=== PATIENT | male | born 1980 | race Caucasian/White ===

== ENCOUNTER 2016-11-10 14:01 | Inpatient (IN) | payer OTHER ==
[~2016-11-10] VITALS: Ht 175.3 cm; Wt 103.8 kg
[~2016-11-10 14:01] MED LIST: LIBRIUM25 MG PO; LISINOPRIL10 MG PO; METOPROLOL SUCC50 MG PO
--- NOTE | 2016-11-10 16:06 | ED CLINICAL REPORT ---
Clinical Report - Physicians/Mid Levels [facility] [address], [place] [address] 11/10/2016 14:02 Patient: HENRIK WINSTON Time Seen: 14:05. Arrived- By ambulance. Historian- EMS personnel. Evaluation limited history limited by alcohol intoxication. HISTORY OF PRESENT ILLNESS Chief Complaint: VOMITING BLOOD and DARK/TARRY STOOLS. This started several days ago and has been severe. (Pt and family called 911 because of dark blood emesis and incontinence of black tarry stool). Is still present. It was gradual in onset. The patient has had dark stools, rectal bleeding, nausea, vomiting and diarrhea. He has had abdominal pain but not had hard stools. No constipation. Similar symptoms previously: Several times. REVIEW OF SYSTEMS CAVEAT, MARKED INTOXICATON PRECLUDES ACCURATE ROS. PAST HISTORY PCP: Eyad MANCINI PAST HISTORY Alcoholism with prior withdrawal and alcohol withdrawal seizures. Alcoholic gastritis. Bilateral femoral head necrosis Prior right ankle injury / fracture. Hypertension. Borderline diabetes Hyperlipidemia. Hypomagnesemia. Gout. Surgeries: Right knee surgery. Endoscopy. ADDITIONAL NOTES The nursing notes have been reviewed. PHYSICAL EXAM Vital Signs: 11/10/2016 14:27 BP: 80/44. HR: 123. RR: 20. O2 saturation: 98%. 11/10/2016 14:07 BP: 70/53. HR: 114. RR: 22. O2 saturation: 100%. Temp: 95.7 F. Appearance: Alert. (Vomiting dark red material and incontinent of black tarry stool). Eyes: No scleral icterus. ENT: Dry mucous membranes present. Neck: (difficult to visualize neck veins due to habitus and weber.). CVS: Tachycardia. Heart sounds normal. Respiratory: No respiratory distress. Abdomen: Mild tenderness diffusely. Bowel sounds normal. Rectal: (black tarry strongly heme positive stools.). Extremities: Extremities exhibit normal ROM. No lower extremity edema. Neuro: Altered mental status. (slurred speach.). LABS, X-RAYS, AND EKG Laboratory Tests: UA-Culture if indicated: (JASS: 11/10/2016 14:42) ( MsgRcvd 11/10/2016 15:08) Final results Test Result Flag Units (Reference) URINE COLOR ORQUIDEA URINE APPEARANCE CLEAR URINE GLUCOSE NEGATIVE (NEGATIVE) URINE BILIRUBIN ICTOTEST POSITIVE (NEGATIVE) URINE KETONE TRACE (NEGATIVE) URINE SPECIFIC GRAVITY >= 1.030 (1.010-1.030) URINE PH 5.0 (5.0-8.0) URINE PROTEIN TRACE (NEGATIVE) URINE UROBILINOGEN 1.0 EU/dL (0.2-1.0) URINE NITRITE NEGATIVE (NEGATIVE) URINE BLOOD NEGATIVE (NEGATIVE) URINE LEUK ESTERASE NEGATIVE (NEGATIVE) URINE RBC NONE SEEN rbc/hpf (0-1) URINE WBC 1-3 wbc/hpf (0-1) URINE EPITHELIAL CELLS NONE SEEN EPI/hpf (0-5) URINE BACTERIA FEW (1+) (NONE SEEN) URINE COMMENT CULT NOT INDICATED 25-50 HYALINE CAST PER LOW POWER FIELD. 1+ AMORPHOUS URATES.FEW TRANSITIONAL EPITHELIAL CELLS.URINE CULTURES ARE SET-UP BASED ON THE FOLLOWING CRITERIA:POSITIVE NITRITEPOSITIVE LEUKOCYTE ESTERASEGREATER THAN 10 WHITE BLOOD CELLSMODERATE (2+) OR GREATER BACTERIA CBC w Diff: (JASS: 11/10/2016 14:20) ( MsgRcvd 11/10/2016 14:26) Final results Test Result Flag Units (Reference) WHITE BLOOD COUNT 22.6 H K/uL (4.5-11.5) RED BLOOD COUNT 2.17 L M/uL (4.50-5.90) HEMOGLOBIN 7.5 L gm/dL (13.5-17.5) HH CALLED TO DR. MCKENNA HEMATOCRIT 22.7 L % (41.0-53.0) MEAN CELL VOLUME 104 H fL (80-100) MEAN CORPUSCULAR HGB 35 H pg (26-34) MEAN CORPUSCULAR HGB CONC 33 g/dL (31-37) RED CELL DISTRIBUTION WIDTH 17.7 H % (11.6-14.8) PLATELET COUNT 224 K/uL (150-400) NEUTROPHIL % 80.1 H % (50-75) LYMPH % 9.3 L % (25-40) MONO % 10.6 % (3-14) EOSINOPHIL % 0 % (0-4) BASOPHIL % 0 % (0-2) PT with INR: (JASS: 11/10/2016 14:35) ( MsgRcvd 11/10/2016 14:43) Final results Test Result Flag Units (Reference) INR 1.3 H (0.8-1.2) Low Intensity Therapy: INR 1.5-2.0 PT range 18.5-23.1Mod.Intensity Therapy: INR 2.0-3.0 PT range 23.1-31.5High Intensity Therapy: INR 2.5-3.5 PT range 27.4-35.5High Intensity Therapy 2: INR 3.0-4.0 PT range 31.5-39.3 CMP: (JASS: 11/10/2016 14:20) ( MsgRcvd 11/10/2016 14:42) Final results Test Result Flag Units (Reference) GLUCOSE 116 H mg/dL (70-110) BUN 42 H mg/dL (7-18) CREATININE 1.7 H mg/dL (0.6-1.3) Estimated GFR 48.44 mL/min Estimated GFR- 58.71 mL/min Note: Persistent reduction over 3 months in eGFR<60 mL/min/1.73 m2 defines CKD. Patients with eGFR values>=60 mL/min/1.73 m2 may also have CKD if evidence ofpersistent proteinuria. Additional information may be foundat www.kidney.org. SODIUM 127 L mmol/L (136-145) POTASSIUM 4.1 mmol/L (3.5-5.1) CHLORIDE 83 L mmol/L (98-107) CARBON DIOXIDE 12 *L mmol/L (21-32) CRITICAL RESULTS CALLEDCalled to RODOLFO CHILEL RN 11/10/16 [id number] 2 patient identifiers used? YWas the result read back? Y CALCIUM 7.3 L mg/dL (8.5-10.1) TOTAL PROTEIN 5.6 L g/dL (6.4-8.2) ALBUMIN 2.1 L g/dL (3.3-5.0) BILIRUBIN, TOTAL 1.4 H mg/dL (0.0-1.0) ALKALINE PHOSPHATASE 96 U/L (46-116) AST (SGOT) 199 H U/L (15-37) ALT (SGPT) 80 H U/L (12-78) LIPASE 198 U/L (73-393) AMYLASE 39 U/L (25-115) ETHYL ALCOHOL 380 H mg/dL (3-10) Type & Cross: (JASS: 11/10/2016 14:20) ( MsgRcvd 11/10/2016 15:01) IP Test Result Flag Units (Reference) PATIENT BLOOD TYPE O Positive Above is a corrected result. Previously reported on ( MsgRcvd 11/10/2016 14:55) as: PATIENT BLOOD TYPE O Positive ANTIBODY SCREEN NEGATIVE Above is a corrected result. Previously reported on ( MsgRcvd 11/10/2016 14:55) as: ANTIBODY SCREEN NEGATIVE LEUKOREDUCED PACKED CELLS [id number] OP PC XM COMPATIBLE [id number] OP PC XM COMPATIBLE [id number] OP PC XM COMPATIBLE [id number] OP PC XM COMPATIBLE . PROGRESS AND PROCEDURES Course of Care: Hypotension Melena, dark vomiting HCT 22 Hb 7.2 with evidence of recent possibly ongoing bleeding. T&C for 4 units of blood with 2 typed but not cross matched given. Informed Dr Wolf and Kaden 15:27 11/10/16. Dr Alfonso has seen the patient. Mr Montenegro has 3 lines. 3 units of NS have been infused. 2 units of PRBC are hanging. a 4th unit of NS is hanging. 150 ml of urine out in the last hour. MAP 62, 90/50. 15:10 11/10/16. Dr Alfonso is here. ICU bed is available 15:42 11/10/16. Map 85 120/ Stable enough for ICU. 11/10/2016 17:24 BP: 104/68. HR: 130. RR: 26. O2 saturation: 100%. Temp: 98.7 F. End tidal CO2: 19 mmHg. Pain level now: 04/08. 11/10/2016 16:54 BP: 136/87. HR: 105. RR: 26. O2 saturation: 99%. 11/10/2016 16:05 BP: 124/73. HR: 120. RR: 26. O2 saturation: 98%. End tidal CO2: 15 mmHg. 11/10/2016 15:38 Temp: 97.4 F. 11/10/2016 15:32 BP: 124/73. HR: 115. RR: 37. O2 saturation: 100%. 11/10/2016 15:28 BP: 116/69. HR: 115. RR: 31. O2 saturation: 100%. 11/10/2016 15:14 BP: 90/55. HR: 120. RR: 16. O2 saturation: 99%. End tidal CO2: 16 mmHg. 11/10/2016 15:05 BP: 97/45. HR: 118. RR: 36. O2 saturation: 99%. Temp: 96.7 F. 11/10/2016 15:05 BP: 97/45. HR: 118. RR: 36. O2 saturation: 99%. Temp: 96.7 F. 11/10/2016 14:59 BP: 104/57. HR: 119. RR: 29. O2 saturation: 99%. 11/10/2016 14:58 BP: 104/57. HR: 122. RR: 28. O2 saturation: 100%. Temp: 95.9 F. End tidal CO2: 18 mmHg. 11/10/2016 14:56 Temp: 95.9 F. 11/10/2016 14:50 BP: 108/64. HR: 122. RR: 30. O2 saturation: 82%. 11/10/2016 14:27 BP: 80/44. HR: 123. RR: 20. O2 saturation: 98%. 11/10/2016 14:07 BP: 70/53. HR: 114. RR: 22. O2 saturation: 100%. Temp: 95.7 F. Critical care performed (60 minutes). Time is exclusive of separately billable procedures. Time includes: direct patient care, patient reassessment, coordination of patient care, interpretation of data (laboratory data and pulse oximetry), review of patient's medical records and documentation of patient care- see progress notes. CLINICAL IMPRESSION ACUTE UPPER GI BLEED ACUTE BLOOD LOSS ANEMIA HYPOTENSION. (Electronically signed by Chano Mckenna MD 11/10/2016 23:05)
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
--- NOTE | 2016-11-10 16:07 | ED ORDER SUMMARY ---
..... Patient: HENRIK WINSTON OrderSheet [facility] VisitID: [id number] [address] [place] [address] 36y, M Registration Date/Time: 11/10/2016 ORDER SHEET Weight: 111.1 kg (stated) Allergies: None GENERAL ORDERS: Type & Cross (upper gi pleed) (hypotension 76/ ) Urgent (14:06 11/10/2016 Edward SMITH) (Ack 14:15 Sebas) (14:23 SReitz R.N.) CBC w Diff Urgent (14:11/10/2016 Edward SMITH) (Ack 14:15 Sebas) (14:23 SReitz R.N.) CMP Urgent (14:11/10/2016 Edward SMITH) (Ack 14:15 Sebas) (14:23 SReitz R.N.) UA-Culture if indicated Urgent (14:11/10/2016 Edward SMITH) (Ack 14:15 Sebas) (16:08 SReitz R.N.) PT with INR Urgent (14:07 11/10/2016 Edward SMITH) (Ack 14:15 Sebas) (14:23 SReitz R.N.) Lipase Urgent (14:11/10/2016 Edward SMITH) (Ack 14:15 Sebas) (14:23 SReitz R.N.) Amylase Urgent (14:11/10/2016 Edward SMITH) (Ack 14:15 Sebas) (14:23 SReitz R.N.) Ethyl Alcohol Urgent (14:11/10/2016 Edward SMITH) (Ack 14:15 Sebas) (14:23 SReitz R.N.) Arias Catheter (14:17 11/10/2016 Edward SMITH) (14:23 SReitz R.N.) Arias Catheter (14:18 11/10/2016 Edward SMITH) (14:18 Edward SMITH) (Cancelled: Duplicate Order14:18 Edward SMITH) NG Tube (14:18 11/10/2016 Edward SMITH) (14:23 SReitz R.N.) - (TRANSFUSE 2 UNITS OF TYPE SPECIFIC PRBC) (14:27 11/10/2016 Edward SMITH) (14:40 Warren R.N.) Chest 1V Urgent (15:01 11/10/2016 Edward SMITH) (Ack 15:15 Sebas) (16:24 SReitz R.N.) MEDICATION ORDERS: - (Octreotide 50 mcg iv) (16:26 11/10/2016 Edward SMITH) (Ack 16:29 SReitz R.N.) (16:51 SReitz R.N.) IV FLUIDS: IV NS : initial bolus none -, then 1000 mL/hr for X1 (NOW) (1 #1) (14:07 11/10/2016 Edward SMITH) (14:24 SReisabella R.N.) IV NS : initial bolus none -, then 1000 mL/hr for X1 (NOW) (IV #2) (14:08 11/10/2016 Edward SMITH) (14:25 Warren R.N.) Vit K IV 5 mg (IV doses should be given diluted) (14:16 11/10/2016 Edward SMITH) (Ack 14:28 Warren R.N.) (15:30 Warren R.N.) Thiamine IV 100 mg (100 mg Add to IV solution) (14:16 11/10/2016 Edward SMITH) (Ack 14:28 Warren R.N.) (14:40 Warren R.N.) ORDER SHEET NOTES: [Electronically signed by Sil Sr R.N. (17:57 11/10/2016)] [Electronically signed by Chano Swann MD (23:05 11/10/2016)] [Electronically locked/signed by Sil Sr R.N. (17:57 11/10/2016)]
--- NOTE | 2016-11-10 16:07 | ED ORDER SUMMARY ---
..... Patient: HENRIK WINSTON OrderSheet [facility] VisitID: [id number] [address] [place] [address] 36y, M Registration Date/Time: 11/10/2016 ORDER SHEET Weight: 111.1 kg (stated) Allergies: None GENERAL ORDERS: Type & Cross (upper gi pleed) (hypotension 76/ ) Urgent (14:06 11/10/2016 Edward SMITH) (Ack 14:15 Sebas) (14:23 SReitz R.N.) CBC w Diff Urgent (14:11/10/2016 Edward SMITH) (Ack 14:15 Sebas) (14:23 SReitz R.N.) CMP Urgent (14:11/10/2016 Edward SMITH) (Ack 14:15 Sebas) (14:23 SReitz R.N.) UA-Culture if indicated Urgent (14:11/10/2016 Edward SMITH) (Ack 14:15 Sebas) (16:08 SReitz R.N.) PT with INR Urgent (14:07 11/10/2016 Edward SMITH) (Ack 14:15 Sebas) (14:23 SReitz R.N.) Lipase Urgent (14:11/10/2016 Edward SMITH) (Ack 14:15 Sebas) (14:23 SReitz R.N.) Amylase Urgent (14:11/10/2016 Edward SMITH) (Ack 14:15 Sebas) (14:23 SReitz R.N.) Ethyl Alcohol Urgent (14:11/10/2016 Edward SMITH) (Ack 14:15 Sebas) (14:23 SReitz R.N.) Arias Catheter (14:17 11/10/2016 Edward SMITH) (14:23 SReitz R.N.) Arias Catheter (14:18 11/10/2016 Edward SMITH) (14:18 Edward SMITH) (Cancelled: Duplicate Order14:18 Edward SMITH) NG Tube (14:18 11/10/2016 Edward SMITH) (14:23 SReitz R.N.) - (TRANSFUSE 2 UNITS OF TYPE SPECIFIC PRBC) (14:27 11/10/2016 Edward SMITH) (14:40 Warren R.N.) Chest 1V Urgent (15:01 11/10/2016 Edward SMITH) (Ack 15:15 Sebas) (16:24 SReitz R.N.) MEDICATION ORDERS: - (Octreotide 50 mcg iv) (16:26 11/10/2016 Edward SMITH) (Ack 16:29 SReitz R.N.) (16:51 SReitz R.N.) IV FLUIDS: IV NS : initial bolus none -, then 1000 mL/hr for X1 (NOW) (1 #1) (14:07 11/10/2016 Edward SMITH) (14:24 SReisabella R.N.) IV NS : initial bolus none -, then 1000 mL/hr for X1 (NOW) (IV #2) (14:08 11/10/2016 Edward SMITH) (14:25 Warren R.N.) Vit K IV 5 mg (IV doses should be given diluted) (14:16 11/10/2016 Edward SMITH) (Ack 14:28 Warren R.N.) (15:30 Warren R.N.) Thiamine IV 100 mg (100 mg Add to IV solution) (14:16 11/10/2016 Edward SMITH) (Ack 14:28 Warren R.N.) (14:40 Warren R.N.) ORDER SHEET NOTES: [Electronically signed by Sil Sr R.N. (17:57 11/10/2016)] [Electronically signed by Chano Swann MD (23:05 11/10/2016)] [Electronically locked/signed by Sil Sr R.N. (17:57 11/10/2016)]
--- NOTE | 2016-11-10 16:31 | DIAGNOSTIC IMAGING REPORT ---
PROCEDURE: XR CHEST 1 VIEW INDICATION: UGI BLEED TECHNIQUE: Portable AP view (). COMPARISON: None. FINDINGS: Interval placement of an NG tube with the tip in the stomach. Lungs are clear. Heart and mediastinum are normal. Thorax is normal. IMPRESSION: 1. NG tube in place 2. No acute changes
[2016-11-10 17:45] VITALS: BP 92/49
--- NOTE | 2016-11-10 18:12 | History & Physical Report ---
Information Source Information Source: Self Reliability: Fair History Chief Complaint dark vomitus and dark stools History of Present Illness Patient is a 36 year old male with a history of gout, hypertension, femoral head necrosis and alcoholism that is presenting with a two day history of dark vomitus and dark stools. Patient at the time of interview was intoxicated therefore a lot of the history obtained is suboptimal. Patient apparently has been drinking continuously for the last 2-4 days. Patient has been consuming close to a liter of liquor a day after losing his job. Patient yesterday began to notice that he was having very dark stools, this was shortly followed by forceful vomiting. Patient continued to drink despite having multiple episodes of dark vomiting. Patient woke up the next day with a puddle of dark vomitus near his head, and continued to drink. Patient again began to have foreful vomiting and dark stools. Patient became worried that this was somehting more significant and called his father to call ems. Patient History 1. Upper GI bleeding 2. Alcoholic gastritis 3. Anemia 4. Acute blood loss anemia 5. Alcohol intoxication Social History Pt lives by himself, he does not smoke or use illicit substances. Patient does drink significantly and had to be admitted to detox twice. Patient consumes anywhere from a pint to a liter of liquor a day. Patient does stop every so often but drinks to combat withdrawal symptoms. 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 Advance Directive None Medications and Allergies Medications Home Meds Lisinopril 20 mg daily Metoprolol 25 mg daily Current Medications Sig/Jamarcus Start time Last Medication Dose Route Stop Time Status Admin Pantoprazole Sodium 40 MG BID 11/10 2100 UNV IV Octreotide Acetate 300 MCG Q12H 11/10 181 UNV Dextrose/Water 250 ML IV Acetaminophen 650 MG Q4H PRN 11/10 1800 UNV PO Lorazepam 2 MG Q2H PRN 11/10 1800 UNV IV Morphine Sulfate 1 MG Q4H PRN 11/10 1800 UNV IV Ondansetron HCl 4 MG Q6H PRN 11/10 1800 UNV IV Sodium Chloride 1,000 ML ASDIRECTED 11/10 1800 UNV IV Allergies Coded Allergies: NKA (05/19/16) Review of Systems Constitutional Denies: Fever, Chills, Sweats, Weakness, Malaise, Other. Eyes Denies: Pain, Vision Change, Conjunctival Inflammation, Eyelid Inflammation, Redness, Other. ENT Denies: Ear Pain, Ear Discharge, Nose Pain, Nasal Discharge, Nasal Congestion, Mouth Pain, Mouth Swelling, Throat Pain, Throat Swelling, Other. Respiratory Denies: Cough, Dry, SOB w/exertion, Wheezing, Hemoptysis, Pleuritic Pain, Sputum , Other. Cardiovascular Denies: Chest Pain, Palpitations, Orthopnea, PND, Edema, Light-headedness, Other. Gastrointestinal Nausea, Vomiting, Abdominal Pain, Diarrhea, Other (- dark vomitus and stools ). Genitourinary Denies: Dysuria, Frequency, Incontinence, Hematuria, Retention, Other. Musculoskeletal Other (bilateral hip pain ). Skin Denies: Rash, Lesions, Jaundice, Bruising, Other. Physical Exam Vital Signs / I&Os Vital Signs Date Time Temp Pulse Resp B/P Pulse O2 O2 Flow FiO2 Ox Delivery Rate 11/10 1745 98.4 131 30 92/49 100 Room Air General Appearance Alert, Cooperative, Moderate distress HEENT Atraumatic, - dark vomitus remanants seen in nostrils and teeth Lungs - clear to auscultation Cardiovascular Normal S1 and S2, No murmurs, gallops, rubs, tachycardic Abdomen Soft, No masses, - generalized tenderness Extremities No cyanosis, Normal pulses, No tenderness, Strength = upper ext's, Strength = lower ext's Skin No Rashes Psych/Mental Status Confused LAB Results Laboratory Tests 11/10 11/10 11/10 1420 1435 1442 Chemistry Plasma Sodium (136 - 145 mmol/L) 127 Plasma Potassium (3.5 - 5.1 mmol/L) 4.1 Plasma Chloride (98 - 107 mmol/L) 83 CO2 (Enzymatic) (21 - 32 mmol/L) 12 BUN (7 - 18 mg/dL) 42 Creatinine (0.6 - 1.3 mg/dL) 1.7 Est GFR ( Amer) (mL/min) 58.71 Est GFR (Non-Af Amer) (mL/min) 48.44 Glucose (70 - 110 mg/dL) 116 Plasma Calcium (8.5 - 10.1 mg/dL) 7.3 Total Bilirubin (0.0 - 1.0 mg/dL) 1.4 AST (15 - 37 U/L) 199 ALT (12 - 78 U/L) 80 Alkaline Phosphatase (46 - 116 U/L) 96 Total Protein (6.4 - 8.2 g/dL) 5.6 Albumin (3.3 - 5.0 g/dL) 2.1 Amylase (25 - 115 U/L) 39 Lipase (73 - 393 U/L) 198 Coagulation INR (0.8 - 1.2) 1.3 Hematology WBC (4.5 - 11.5 K/uL) 22.6 RBC (4.50 - 5.90 M/uL) 2.17 Hgb (13.5 - 17.5 gm/dL) 7.5 Hct (41.0 - 53.0 %) 22.7 MCV (80 - 100 fL) 104 MCH (26 - 34 pg) 35 RDW (11.6 - 14.8 %) 17.7 Neut % (Auto) (50 - 75 %) 80.1 Lymph % (Auto) (25 - 40 %) 9.3 Preble % (Auto) (3 - 14 %) 10.6 Eos % (Auto) (0 - 4 %) 0 Baso % (Auto) (0 - 2 %) 0 Plt Count, EDTA (150 - 400 K/uL) 224 PUBS MCHC (31 - 37 g/dL) 33 Toxicology Plasma/Serum Ethyl Alc (3 - 10 mg/dL) 380 Urines Urine Color ORQUIDEA Urine Appearance CLEAR Urine pH (5.0 - 8.0) 5.0 Ur Specific Ewing (1.010 - 1.030) >= 1.030 Urine Protein (NEGATIVE) TRACE Urine Ketones (NEGATIVE) TRACE Urine Blood (NEGATIVE) NEGATIVE Urine Nitrite (NEGATIVE) NEGATIVE Ur Bilirubin Confirm (NEGATIVE) POSITIVE Urine Urobilinogen (0.2 - 1.0 EU/dL) 1.0 Ur Leukocyte Esterase (NEGATIVE) NEGATIVE Urine RBC (0 - 1 rbc/hpf) NONE SEEN Urine WBC (0 - 1 wbc/hpf) 1-3 Ur Epithelial Cells (0 - 5 EPI/hpf) NONE SEEN Urine Bacteria (NONE SEEN) FEW (1+) Urine Glucose (NEGATIVE) NEGATIVE Urine Comment CULT NOT INDICATED Assessment and Plan Problem List 1. Upper GI bleeding Plan - Pt has been having upper gastrointestinal bleeding secondary to most likely alcoholic gastritis - Pt has had over 1.5 liters of dark vomitus pulled from his stomach when ng tube was placed - Will begin ppis and octreotide - will type and cross and transfuse 2 units of prbcs - intermitent ng tube suction - will contact gen surg for possible upper endoscopy 2. Acute blood loss anemia Plan - will transfuse 2 units urgently - will monitor cbc q8 hours until bleeding has stopped - will have fluids running at 200 ccs/hr - 2 units are on hold in the blood bank 3. Hypotension Plan - pt has been hypotensive most likely secondary to acute blood loss - after 3 liters of fluid and 2 units of PRBCs pts blood pressure has improved immensely - will continuoulsy monitor bp - will hold bp meds for the time being 4. Alcohol intoxication Plan - pt presented with acute alcohol intoxication - will order replacement therapy with thiamine, folate and iv fluid 5. Alcohol withdrawal syndrome Status Acute Onset Date Unknown Plan - pt is at high risk for alcohol withdrawal - will add ativan 2 mg prn - will increase dose as necessary - seizure precautions
[2016-11-10 19:15] VITALS: BP 104/45
[2016-11-10 20:14] VITALS: BP 96/39
[2016-11-10 21:30] VITALS: BP 91/51
[2016-11-10 22:00] VITALS: BP 108/60
--- NOTE | 2016-11-10 23:06 | ED MED RECONCILIATION SUMMARY ---
Patient: HENRIK WINSTON Medication Reconciliation Report [facility] VisitID: [id number] [address] [place] [address] 36y, M Registration Date/Time: 11/10/2016 Weight: 111.1 kg Height/Length: 66 in. BMI: 39.6 ALLERGIES: None The patient's Home Medications are listed below: THE FOLLOWING MEDICATIONS NEED TO BE RECONCILED: Lisinopril Oral 20 mg, daily Metoprolol Tartrate Oral 25 mg, daily Percocet Oral PredniSONE Oral The source(s) of the original Home Medication information: Not obtained. The following Medications were given to the patient in the Emergency Department: IV NS IV Fluids bolus 0, then 1000 mL/hr, administered: 11/10/2016 2:05:00 PM IV NS IV Fluids bolus 0, then 1000 mL/hr, administered: 11/10/2016 2:05:00 PM IV NS IV Fluids bolus 0, then 1000 mL/hr, administered: 11/10/2016 2:38:00 PM Thiamine [IVP] IVP 100 mg, administered: 11/10/2016 2:40:00 PM Vit K [IVPB] IVPB bolus 0, then 5 mg 100 mL/hr, administered: 11/10/2016 3:28:00 PM IV NS IV Fluids bolus 0, then 1000 mL/hr, administered: 11/10/2016 3:31:00 PM Octreotide [IVP] IVP 50 mcg, administered: 11/10/2016 4:51:00 PM The following Medications were prescribed to the patient: None.
--- NOTE | 2016-11-10 23:06 | ED MAR SUMMARY ---
..... Medication Administration Record [facility] [address] [place] [address] Patient: HENRIK WINSTON Visit ID: [id number] 36y, M Weight: 111.1 kg Height/Length: 66 in BMI: 39.6 ALLERGIES: None Start 14:05 11/10/2016 Sil Sr R.N., Stop 14:37 11/10/2016 Sil Sr R.N. Medication Administered: IV NS (SALINE), Dose: IV Fluids over 1 hour(s), Rate: 1000 mL/hr, Dispensed: 1000 mL bag, Site: #1. Medication Ordered: IV NS : initial bolus none -, then 1000 mL/hr for X1 (NOW) (IV #2). Start 14:05 11/10/2016 Sil Sr R.N., Stop 14:33 11/10/2016 Sil Sr R.N. Medication Administered: IV NS (SALINE), Dose: IV Fluids over 1 hour(s), Rate: 1000 mL/hr, Dispensed: 1000 mL bag, Site: #1. Medication Ordered: IV NS : initial bolus none -, then 1000 mL/hr for X1 (NOW) (1 #1). Start 14:38 11/10/2016 Sil Sr R.N., Stop 14:57 11/10/2016 Sil Sr R.N. Medication Administered: IV NS (SALINE), Dose: IV Fluids over 1 hour(s), Rate: 1000 mL/hr, Dispensed: 1000 mL bag, Site: #2 right wrist. Medication Ordered: IV NS : initial bolus none -, then 1000 mL/hr for X1 (NOW) (1 #1). Given 14:40 11/10/2016 Sil Sr R.N. Medication Administered: THIAMINE [IVP] (VITAMIN B-1), Dose: 100 mg IVP over 1 hour(s), Site: #2 right wrist. Medication Ordered: Thiamine IV 100 mg (100 mg Add to IV solution). Start 15:28 11/10/2016 Sil Sr R.N., Stop 16:00 11/10/2016 Remberto, Sil, R.N. Medication Administered: VIT K [IVPB] (VITAMIN K1), Dose: 5 mg IVPB over 30 minute(s), Rate: 100 mL/hr, Dispensed: 50 mL bag, Site: #3 right AC. Medication Ordered: Vit K IV 5 mg (IV doses should be given diluted). Start 15:31 11/10/2016 Sil Sr RKristieNKristie, Stop 17:00 11/10/2016 Sil Sr R.N. Medication Administered: IV NS (SALINE), Dose: IV Fluids over 1 hour(s), Rate: 1000 mL/hr, Dispensed: 1000 mL bag, Site: #3 right AC. Medication Ordered: IV NS : initial bolus none -, then 1000 mL/hr for X1 (NOW) (1 #1). Given 16:51 11/10/2016 Sil Sr, RKristieN. Medication Administered: OCTREOTIDE [IVP] (OCTREOTIDE ACETATE), Dose: 50 mcg IVP over 2 minute(s), Site: #3 right AC. Medication Ordered: - (Octreotide 50 mcg iv).
--- NOTE | 2016-11-10 23:06 | ED DISCHARGE INSTRUCTIONS ---
Patient: HENRIK WINSTON General Instructions [facility] VisitID: [id number] [address] [place] [address] 36y, M Registration Date/Time: 11/10/2016 ACUTE UPPER GI BLEED ACUTE BLOOD LOSS ANEMIA HYPOTENSION. (Electronically signed by Chano Swann MD 11/10/2016 23:05)
--- NOTE | 2016-11-10 23:06 | ED MAR SUMMARY ---
..... Medication Administration Record [facility] [address] [place] [address] Patient: HENRIK WINSTON Visit ID: [id number] 36y, M Weight: 111.1 kg Height/Length: 66 in BMI: 39.6 ALLERGIES: None Start 14:05 11/10/2016 Sil Sr R.N., Stop 14:37 11/10/2016 Sil Sr R.N. Medication Administered: IV NS (SALINE), Dose: IV Fluids over 1 hour(s), Rate: 1000 mL/hr, Dispensed: 1000 mL bag, Site: #1. Medication Ordered: IV NS : initial bolus none -, then 1000 mL/hr for X1 (NOW) (IV #2). Start 14:05 11/10/2016 Sil Sr R.N., Stop 14:33 11/10/2016 Sil Sr R.N. Medication Administered: IV NS (SALINE), Dose: IV Fluids over 1 hour(s), Rate: 1000 mL/hr, Dispensed: 1000 mL bag, Site: #1. Medication Ordered: IV NS : initial bolus none -, then 1000 mL/hr for X1 (NOW) (1 #1). Start 14:38 11/10/2016 Sil Sr R.N., Stop 14:57 11/10/2016 Sil Sr R.N. Medication Administered: IV NS (SALINE), Dose: IV Fluids over 1 hour(s), Rate: 1000 mL/hr, Dispensed: 1000 mL bag, Site: #2 right wrist. Medication Ordered: IV NS : initial bolus none -, then 1000 mL/hr for X1 (NOW) (1 #1). Given 14:40 11/10/2016 Sil Sr R.N. Medication Administered: THIAMINE [IVP] (VITAMIN B-1), Dose: 100 mg IVP over 1 hour(s), Site: #2 right wrist. Medication Ordered: Thiamine IV 100 mg (100 mg Add to IV solution). Start 15:28 11/10/2016 Sil Sr R.N., Stop 16:00 11/10/2016 Remberto, Sil, R.N. Medication Administered: VIT K [IVPB] (VITAMIN K1), Dose: 5 mg IVPB over 30 minute(s), Rate: 100 mL/hr, Dispensed: 50 mL bag, Site: #3 right AC. Medication Ordered: Vit K IV 5 mg (IV doses should be given diluted). Start 15:31 11/10/2016 Sil Sr RKristieNKristie, Stop 17:00 11/10/2016 Sil Sr R.N. Medication Administered: IV NS (SALINE), Dose: IV Fluids over 1 hour(s), Rate: 1000 mL/hr, Dispensed: 1000 mL bag, Site: #3 right AC. Medication Ordered: IV NS : initial bolus none -, then 1000 mL/hr for X1 (NOW) (1 #1). Given 16:51 11/10/2016 Sil Sr, RKristieN. Medication Administered: OCTREOTIDE [IVP] (OCTREOTIDE ACETATE), Dose: 50 mcg IVP over 2 minute(s), Site: #3 right AC. Medication Ordered: - (Octreotide 50 mcg iv).
--- NOTE | 2016-11-10 23:06 | ED MED RECONCILIATION SUMMARY ---
Patient: HENRIK WINSTON Medication Reconciliation Report [facility] VisitID: [id number] [address] [place] [address] 36y, M Registration Date/Time: 11/10/2016 Weight: 111.1 kg Height/Length: 66 in. BMI: 39.6 ALLERGIES: None The patient's Home Medications are listed below: THE FOLLOWING MEDICATIONS NEED TO BE RECONCILED: Lisinopril Oral 20 mg, daily Metoprolol Tartrate Oral 25 mg, daily Percocet Oral PredniSONE Oral The source(s) of the original Home Medication information: Not obtained. The following Medications were given to the patient in the Emergency Department: IV NS IV Fluids bolus 0, then 1000 mL/hr, administered: 11/10/2016 2:05:00 PM IV NS IV Fluids bolus 0, then 1000 mL/hr, administered: 11/10/2016 2:05:00 PM IV NS IV Fluids bolus 0, then 1000 mL/hr, administered: 11/10/2016 2:38:00 PM Thiamine [IVP] IVP 100 mg, administered: 11/10/2016 2:40:00 PM Vit K [IVPB] IVPB bolus 0, then 5 mg 100 mL/hr, administered: 11/10/2016 3:28:00 PM IV NS IV Fluids bolus 0, then 1000 mL/hr, administered: 11/10/2016 3:31:00 PM Octreotide [IVP] IVP 50 mcg, administered: 11/10/2016 4:51:00 PM The following Medications were prescribed to the patient: None.
--- NOTE | 2016-11-10 23:06 | ED DISCHARGE INSTRUCTIONS ---
Patient: HENRIK WINSTON General Instructions [facility] VisitID: [id number] [address] [place] [address] 36y, M Registration Date/Time: 11/10/2016 ACUTE UPPER GI BLEED ACUTE BLOOD LOSS ANEMIA HYPOTENSION. (Electronically signed by Chano Swann MD 11/10/2016 23:05)
[2016-11-10 23:14] VITALS: BP 120/59
[2016-11-11] VITALS (31 sets, daily range): BP systolic 99–134; BP diastolic 7–93
--- NOTE | 2016-11-11 13:57 | OPERATIVE REPORT ---
DATE OF SURGERY: 11/11/2016 SURGEON: Lucinda Wolf III, MD [facility] HELPER: None. PREOPERATIVE DIAGNOSIS: 1. Upper gastrointestinal bleed POSTOPERATIVE DIAGNOSIS: 1. Suspected esophagitis PROCEDURE PERFORMED: 1. Upper gastrointestinal endoscopy with gastric mucosal biopsies ANESTHESIA: General endotracheal. INDICATIONS: The patient is a 36-year-old male admitted to [facility] with suspected upper GI bleed, received 4 units of packed red blood cells. Post- transfusion hematocrit 24. [place] [facility] were asked to perform upper GI endoscopy. The patient is known as a binge drinker. SURGICAL FINDINGS: Normal-appearing duodenum and duodenal bulb. There is no evidence of old blood or fresh blood in the lumen. In the gastric lumen, there was no evidence of old blood or fresh blood. There was no evidence of peptic ulcer disease. EG junction appeared grossly normal. There was no gross evidence of esophageal varices. However, the distal esophagus appeared to have a coating, consistent with a candidal type coating. There is no evidence of varices or blood in the EG junction, and the remaining proximal esophagus appeared grossly normal. SURGICAL TECHNIQUE: The patient was brought to the operating room and placed in the dorsal supine position, where he underwent general endotracheal anesthesia by the anesthesiology department. After proper anesthesia had taken effect, an Olympus fiberoptic video flexible upper GI endoscope was passed down the patient's posterior pharynx. The esophagus was intubated under direct visualization. The scope passed easily down the esophagus, through the EG junction, with the aforementioned findings noted. The scope passed into the gastric lumen and into the second and third portion of the duodenum. On withdrawing the scope, the aforementioned findings were noted. The scope was withdrawn into the gastric lumen and retroflexed, with a good view of the cardia , fundus, and EG junction below, as well as the greater and lesser curvature. Biopsies were obtained of the gastric mucosa to rule out H. pylori. The scope was withdrawn very carefully and the esophagus evaluated, with the aforementioned findings noted. The scope was then completely withdrawn. The patient tolerated the procedure well and was transferred to the recovery room in stable condition. There were no intraoperative or anesthetic complications.
--- NOTE | 2016-11-11 19:20 | Progress Note ---
Subjective General Pt seen and examined, pt had an upper endoscopy which was ultimately negative for any pathology. Patient additionally was seen to have one episod of dark tarry stools. Patient is otherwise stable and tolerating a diet. Constitutional Denies: Fever, Chills, Sweats, Weakness, Malaise, Other. Eyes Denies: Pain, Vision Change, Conjunctival Inflammation, Eyelid Inflammation, Redness, Other. ENT Denies: Ear Pain, Ear Discharge, Nose Pain, Nasal Discharge, Nasal Congestion, Mouth Pain, Mouth Swelling, Throat Pain, Throat Swelling, Other. Respiratory Denies: Cough, Dry, SOB w/exertion, Wheezing, Hemoptysis, Pleuritic Pain, Sputum , Other. Cardiovascular Denies: Chest Pain, Palpitations, Orthopnea, PND, Edema, Light-headedness, Other. Gastrointestinal Nausea, Vomiting, Diarrhea, Hematochezia. Genitourinary Denies: Dysuria, Frequency, Incontinence, Hematuria, Retention, Other. Musculoskeletal Denies: Neck Pain, Shoulder Pain, Arm Pain, Back Pain, Hand Pain, Leg Pain, Foot Pain, Other. Skin Denies: Rash, Lesions, Jaundice, Bruising, Other. Physical Exam Vital Signs / I&Os Vital Signs Date Time Temp Pulse Resp B/P Pulse O2 O2 Flow FiO2 Ox Delivery Rate 11/11 1909 100 27 113/68 98 Nasal 2.0 Cannula 11/11 1823 99.1 109 28 118/66 98 Nasal 2.0 Cannula 11/11 1712 112 16 132/82 99 Nasal 2.0 Cannula 11/11 1618 98 27 130/73 98 Room Air 11/11 1531 102 16 114/63 100 Room Air 11/11 1410 99.0 104 22 118/62 99 Room Air 11/11 1300 99.9 110 26 110/57 93 Nasal 4.0 Cannula 11/11 1208 99.3 116 30 127/74 30 Room Air 0.0 11/11 1131 106 29 122/76 95 Room Air 0.0 11/11 1059 98.2 118 20 126/76 94 Room Air 0.0 11/11 1043 99.1 121 17 131/81 97 11/11 1035 118 26 139/87 100 11/11 1028 123 28 139/88 100 11/11 1023 99.3 130 27 145/83 100 Mask 7.0 11/11 1000 Nasal 1.0 Cannula 11/11 0953 1.0 11/11 0900 109 29 127/80 98 Nasal 1.0 Cannula 11/11 0844 99.7 116 32 134/69 98 Nasal 1.5 Cannula 11/11 0800 99.9 109 26 132/77 98 Nasal 2.0 Cannula 11/11 0754 105 30 129/69 98 2.0 11/11 0700 99.5 115 24 127/7 99 Nasal 2.0 Cannula 11/11 0630 99.1 118 20 113/93 99 Nasal 2.0 Cannula 11/11 0615 99.5 119 23 123/68 99 Nasal 2.0 Cannula 11/11 0600 121 22 130/65 99 Nasal 2.0 Cannula 11/11 0510 126 20 115/57 92 11/11 0456 98.2 126 26 119/60 95 Nasal 2.0 Cannula 11/11 0417 116 28 104/73 100 11/11 0340 122 127/61 100 Nasal 2.0 Cannula 11/11 0313 127 23 121/60 100 Nasal 2.0 Cannula 11/11 0257 98.8 125 29 105/55 98 Nasal 2.0 Cannula 11/11 0220 98.8 131 25 126/76 100 Nasal 2.0 Cannula 11/11 0144 131 27 130/70 100 Nasal 2.0 Cannula 11/11 0013 131 28 99/57 100 11/10 2314 133 17 120/59 99 Room Air 11/10 2241 2.0 11/10 2200 98.4 125 25 108/60 100 Nasal 2.0 Cannula 11/10 2130 122 27 91/51 100 Nasal 2.0 Cannula 11/10 2013 135 33 96/39 98 Nasal 2.0 Cannula 11/10 1999 Nasal 2.0 Cannula 11/10 1915 134 31 104/45 99 Nasal 2.0 Cannula I&O 11/10 0800 11/10 1600 11/11 0000 Intake Total 1901 Output Total 700 Balance 1201 General Appearance Alert, Oriented X3, No acute distress HEENT Normal exam, EOMI, Moist mucous membranes Lungs Clear to auscultation, Normal air movement Cardiovascular Normal S1 and S2, No murmurs, gallops, rubs, tachycardic Abdomen Soft, No tenderness Extremities Normal exam, No cyanosis, No edema, Normal pulses, No tenderness, Strength = upper ext's, Strength = lower ext's Skin No Rashes, No Breakdown Psych/Mental Status Mental status normal LAB Results Laboratory Tests 11/10 Blood Gas Sample Site LR Total CO2 (24.0 - 30.0 mmol/L) 18.1 ABG pH (7.35 - 7.45) 7.43 ABG pCO2 at Pt Temp (35 - 45 mmHg) 25.9 ABG pO2 at Pt Temp (80.0 - 100.0 mmHg) 105.0 ABG HCO3 (20.0 - 26.0 mmol/L) 17.3 ABG O2 Sat Calc/Julee (95.1 - 100.0 %) 98.9 ABG Base Excess (-6.0 - -6.0 mmol/L) -6.5 ABG Reduced Hgb (%) 1.1 ABG Carboxyhemoglobin (0.5 - 1.5 %) 2.4 ABG Methemoglobin (0.4 - 1.5 %) 0.8 Jose Test NO Other Total Hgb (14.0 - 18.0 g/dL) 7.8 A-a O2 Gradient (7.0 - 14.0 mmHg) 68.2 Hgb O2 Saturation (95.0 - 100.0 %) 95.7 O2 Liters/Min (0 - 20 L/MIN) 2 Vent Mode NC FiO2 (20 - 101 %) 28 Blood Gas Comments 2LNC Chemistry Plasma Sodium (136 - 145 mmol/L) 132 Plasma Potassium (3.5 - 5.1 mmol/L) 3.5 Plasma Chloride (98 - 107 mmol/L) 92 CO2 (Enzymatic) (21 - 32 mmol/L) 17 BUN (7 - 18 mg/dL) 42 Creatinine (0.6 - 1.3 mg/dL) 1.2 Est GFR ( Amer) (mL/min) >60 Est GFR (Non-Af Amer) (mL/min) >60 Glucose (70 - 110 mg/dL) 102 Lactic Acid (0.4 - 2.0 mmol/L) 7.4 Plasma Calcium (8.5 - 10.1 mg/dL) 6.5 Vitamin B12 (211 - 946 pg/mL) 477 Folate (>3.0 ng/mL) 2.3 Procalcitonin (0 - 0.5 ng/mL) 2.7 11/10 11/10 11/11 2110 2300 0105 Chemistry Plasma Sodium Cancelled Plasma Potassium Cancelled Plasma Chloride Cancelled CO2 (Enzymatic) Cancelled BUN Cancelled Creatinine Cancelled Est GFR ( Amer) Cancelled Est GFR (Non-Af Amer) Cancelled Glucose Cancelled Lactic Acid (0.4 - 2.0 mmol/L) 4.9 Plasma Calcium Cancelled Total Bilirubin Cancelled AST Cancelled ALT Cancelled Alkaline Phosphatase Cancelled C-Reactive Protein (0.0 - 0.9 mg/dL) 6.2 Total Protein Cancelled Albumin Cancelled Hematology WBC (4.5 - 11.5 K/uL) 12.5 Cancelled Corrected WBC (auto) (K/uL) 12.3 RBC (4.50 - 5.90 M/uL) 2.65 Cancelled Hgb (13.5 - 17.5 gm/dL) 8.8 Cancelled Hct (41.0 - 53.0 %) 25.8 Cancelled MCV (80 - 100 fL) 98 Cancelled MCH (26 - 34 pg) 33 Cancelled RDW (11.6 - 14.8 %) 18.4 Cancelled Neut % (Auto) (50 - 75 %) 79 Lymph % (Auto) (25 - 40 %) 12 [place] % (Auto) (3 - 14 %) 3 Eos % (Auto) (0 - 4 %) 0 Baso % (Auto) (0 - 2 %) 0 Band Neutrophils % (0 - 8 %) 6 Metamyelocytes % (0 - 1 %) 0 Myelocytes (0 - 1 %) 0 Nucleated RBCs (0 - 1) 2 Other Cell Type 0 Plt Count, EDTA (150 - 400 K/uL) 100 Cancelled RBC Morphology (3970 A) 2+ MICROCYTOSIS PUBS MCHC (31 - 37 g/dL) 34 Cancelled 11/11 0435 Chemistry Plasma Sodium (136 - 145 mmol/L) 139 Plasma Potassium (3.5 - 5.1 mmol/L) 3.8 Plasma Chloride (98 - 107 mmol/L) 99 CO2 (Enzymatic) (21 - 32 mmol/L) 24 BUN (7 - 18 mg/dL) 34 Creatinine (0.6 - 1.3 mg/dL) 1.0 Est GFR ( Amer) (mL/min) >60 Est GFR (Non-Af Amer) (mL/min) >60 Glucose (70 - 110 mg/dL) 148 Plasma Calcium (8.5 - 10.1 mg/dL) 6.6 Total Bilirubin (0.0 - 1.0 mg/dL) 2.9 AST (15 - 37 U/L) 182 ALT (12 - 78 U/L) 64 Alkaline Phosphatase (46 - 116 U/L) 77 Total Protein (6.4 - 8.2 g/dL) 4.9 Albumin (3.3 - 5.0 g/dL) 2.1 Amylase (25 - 115 U/L) 23 Lipase (73 - 393 U/L) 80 Hematology WBC (4.5 - 11.5 K/uL) 9.9 RBC (4.50 - 5.90 M/uL) 2.64 Hgb (13.5 - 17.5 gm/dL) 8.5 Hct (41.0 - 53.0 %) 24.8 MCV (80 - 100 fL) 94 MCH (26 - 34 pg) 32 RDW (11.6 - 14.8 %) 21.2 Neut % (Auto) (50 - 75 %) 84.3 Lymph % (Auto) (25 - 40 %) 9.0 [place] % (Auto) (3 - 14 %) 6.0 Eos % (Auto) (0 - 4 %) 0.3 Baso % (Auto) (0 - 2 %) 0.4 Plt Count, EDTA (150 - 400 K/uL) 92 RBC Morphology 2+ ANISOCYTOSIS PUBS MCHC (31 - 37 g/dL) 35 Microbiology Date/Time Procedure - Status Source Growth 11/11 1015 CLOtest - RECD GASTRIC 11/11 0721 MRSA Screen - RECD NASAL 11/10 2110 Blood Culture - RECD BLOOD 11/10 2100 Blood Culture - RECD BLOOD Assessment and Plan Problem List 1. Acute blood loss anemia Plan - secondary to gi blood loss - will obtain cbcs q8 hours until hgb has stabilized 2. Upper GI bleeding Plan - pt has gi bleed and underwent upper endoscopy which was negative - pt has not had any out put from his ng tube which would suggest further bleeding - will continue with ppi bid and advance diet slowly 3. Alcohol withdrawal syndrome Status Acute Onset Date Unknown Plan - Pt has an established drinking history and consumes anywhere from a pint to a liter of liquor a day - will monitor for withdrawal like symptoms - ativan on board
[2016-11-12] VITALS (22 sets, daily range): BP systolic 102–143; BP diastolic 56–93
--- NOTE | 2016-11-12 16:39 | DIAGNOSTIC IMAGING REPORT ---
PROCEDURE: XR KNEE 1 OR 2 VIEWS - RIGHT INDICATION: pain to palpatin and difficulty bending TECHNIQUE: Two views. COMPARISON: Right knee films 11/17/2015 FINDINGS: There is patellofemoral osteoarthritis. IMPRESSION: 1. Patellofemoral osteoarthritis.
[2016-11-12] MEDS ORDERED: PERCOCET1 TA1 PO (17:03)
[2016-11-13] VITALS (18 sets, daily range): BP systolic 86–164; BP diastolic 47–116
--- NOTE | 2016-11-13 17:50 | Progress Note ---
Subjective General Patient had not acute events overnight and has been resting comfortably. Patient has not had any repeat dark stools or vomitus. Patient has persistent knee pain. Constitutional Denies: Fever, Chills, Sweats, Weakness, Malaise, Other. Eyes Denies: Pain, Vision Change, Conjunctival Inflammation, Eyelid Inflammation, Redness, Other. ENT Denies: Ear Pain, Ear Discharge, Nose Pain, Nasal Discharge, Nasal Congestion, Mouth Pain, Mouth Swelling, Throat Pain, Throat Swelling, Other. Respiratory Denies: Cough, Dry, SOB w/exertion, Wheezing, Hemoptysis, Pleuritic Pain, Sputum , Other. Cardiovascular Denies: Chest Pain, Palpitations, Orthopnea, PND, Edema, Light-headedness, Other. Gastrointestinal Diarrhea. Denies: Nausea, Vomiting, Abdominal Pain, Constipation, Melena, Hematochezia, Other. Genitourinary Denies: Dysuria, Frequency, Incontinence, Hematuria, Retention, Other. Musculoskeletal Denies: Neck Pain, Shoulder Pain, Arm Pain, Back Pain, Hand Pain, Leg Pain, Foot Pain, Other. Skin Denies: Rash, Lesions, Jaundice, Bruising, Other. Neurological Denies: Weakness, Numbness, Incoordination, Change in speech, Confusion, Seizures, Other. Physical Exam Vital Signs / I&Os Vital Signs Date Time Temp Pulse Resp B/P Pulse O2 O2 Flow FiO2 Ox Delivery Rate 11/13 1719 106 18 140/99 97 Nasal 2.0 Cannula 11/13 1500 99 95 125/79 98 Nasal 2.0 Cannula 11/13 1400 99.5 113 42 106/63 98 Nasal 2.0 Cannula 11/13 1300 114 36 100/47 98 Nasal 2.0 Cannula 11/13 1200 109 27 133/87 98 Nasal 2.0 Cannula 14 1100 99 26 141/79 91 Nasal 2.0 Cannula 14 1000 99.3 105 25 131/85 95 Nasal 2.0 Cannula 11/13 0900 22 26 128/77 96 Nasal 2.0 Cannula 11/13 0800 Nasal 2.0 Cannula 11/13 0800 101 22 131/83 96 Nasal 2.0 Cannula 11/13 0755 2.0 11/13 0701 107 24 164/116 98 Nasal 2.0 Cannula 11/13 0600 99.9 102 22 138/78 90 Nasal 2.0 Cannula 11/13 0518 100.0 11/13 0500 105 22 138/91 99 Nasal 2.0 Cannula 11/13 0411 115 22 135/83 95 Nasal 2.0 Cannula 11/13 0310 104 22 125/77 96 Nasal 2.0 Cannula 11/13 0208 100.0 110 22 116/94 98 Nasal 2.0 Cannula 11/13 0000 78 22 128/81 100 Nasal Cannula 11/12 2300 110 120/75 96 11/12 2213 99.9 106 36 128/85 97 Nasal 2.0 Cannula 11/120 99 40 129/84 95 Nasal 2.0 Cannula 11/12 2053 Nasal 2.0 Cannula 11/12 2020 109 26 102/62 96 Nasal 2.0 Cannula 11/12 1900 102 26 107/62 92 Room Air 11/12 1809 99.0 108 26 118/71 100 Nasal 2.0 Cannula I&O 11/12 0800 11/12 1600 11/13 0000 Intake Total 1063 1808 120 Output Total 775 759 905 Balance 288 1049 -785 General Appearance Alert, Oriented X3, No acute distress HEENT Normal exam, EOMI, Moist mucous membranes Lungs Clear to auscultation, Normal air movement Cardiovascular Regular rate and rhythm, Normal S1 and S2 Abdomen Soft, No guarding, No masses Extremities No cyanosis, No clubbing, No edema, Normal pulses, knee pain Neurological Normal gait, Normal speech, Sensation intact LAB Results Laboratory Tests 11/13 0425 Chemistry Plasma Sodium (136 - 145 mmol/L) 141 Plasma Potassium (3.5 - 5.1 mmol/L) 3.7 Plasma Chloride (98 - 107 mmol/L) 106 CO2 (Enzymatic) (21 - 32 mmol/L) 25 BUN (7 - 18 mg/dL) 8 Creatinine (0.6 - 1.3 mg/dL) 0.7 Est GFR ( Amer) (mL/min) >60 Est GFR (Non-Af Amer) (mL/min) >60 Glucose (70 - 110 mg/dL) 74 Plasma Calcium (8.5 - 10.1 mg/dL) 7.0 Total Bilirubin (0.0 - 1.0 mg/dL) 1.5 AST (15 - 37 U/L) 172 ALT (12 - 78 U/L) 48 Alkaline Phosphatase (46 - 116 U/L) 78 Total Protein (6.4 - 8.2 g/dL) 4.5 Albumin (3.3 - 5.0 g/dL) 1.7 Hematology WBC (4.5 - 11.5 K/uL) 7.8 RBC (4.50 - 5.90 M/uL) 2.41 Hgb (13.5 - 17.5 gm/dL) 7.8 Hct (41.0 - 53.0 %) 22.6 MCV (80 - 100 fL) 94 MCH (26 - 34 pg) 32 RDW (11.6 - 14.8 %) 22.0 Neut % (Auto) (50 - 75 %) 68.2 Lymph % (Auto) (25 - 40 %) 16.6 [place] % (Auto) (3 - 14 %) 11.4 Eos % (Auto) (0 - 4 %) 3.6 Baso % (Auto) (0 - 2 %) 0.2 Plt Count, EDTA (150 - 400 K/uL) 94 RBC Morphology (28076 A) 2+ MICROCYTOSIS PUBS MCHC (31 - 37 g/dL) 34 Microbiology Date/Time Procedure - Status Source Growth 11/13 1030 Escherichia coli Shiga Toxins EIA - RECD STOOL 11/13 1030 Campylobacter Culture - RECD STOOL 11/13 1030 Salmonella/Shigella Culture - RECD STOOL 11/13 1030 Clostridium difficile Toxin A & B - COMP STOOL 11/13 1030 Specimen Source - COMP STOOL 11/13 1030 Stool Leukocytes - COMP STOOL Assessment and Plan Problem List 1. Acute blood loss anemia Plan - pts hemoglobin has remained stable - will continue to monitor until discharge 2. Upper GI bleeding Plan - Pt had evidence of upper GI bleed - Pt had a negative upper endoscopy 3. Alcoholism Plan - Pt has an extensive drinking history - no evidence of withdrawal symptoms thus far - will continue to monitor 4. Knee pain Plan - pt has evidence of osteoarthritis of the knee - pain managment via po meds on discharge
[2016-11-14] VITALS (11 sets, daily range): BP systolic 120–151; BP diastolic 71–105
--- NOTE | 2016-11-14 16:43 | Progress Note ---
Subjective General Pt has had no acute events overnight and is resting comfortably. Patient is still anemic. Constitutional Denies: Fever, Chills, Sweats, Weakness, Malaise, Other. Eyes Denies: Pain, Vision Change, Conjunctival Inflammation, Eyelid Inflammation, Redness, Other. Respiratory Denies: Cough, Dry, SOB w/exertion, Wheezing, Hemoptysis, Pleuritic Pain, Sputum , Other. Cardiovascular Denies: Chest Pain, Palpitations, Orthopnea, PND, Edema, Light-headedness, Other. Gastrointestinal Denies: Nausea, Vomiting, Abdominal Pain, Diarrhea, Constipation, Melena, Hematochezia, Other. Musculoskeletal Leg Pain, Other (knee pain ). Denies: Neck Pain, Shoulder Pain, Arm Pain, Back Pain, Hand Pain, Foot Pain. Skin Denies: Rash, Lesions, Jaundice, Bruising, Other. Neurological Denies: Weakness, Numbness, Incoordination, Change in speech, Confusion, Seizures, Other. Physical Exam Vital Signs / I&Os Vital Signs Date Time Temp Pulse Resp B/P Pulse O2 O2 Flow FiO2 Ox Delivery Rate 11/14 1625 99.0 94 18 123/77 93 11/14 1609 100.2 100 18 120/77 92 11/14 1548 98.8 96 18 126/77 92 11/14 1430 98.8 104 18 125/71 92 Room Air 11/14 1149 100.0 104 18 123/75 96 Room Air 0.0 11/14 0800 Room Air 11/14 0635 99.3 98 24 151/99 94 Room Air 2.0 11/14 0258 22 94 11/14 0230 99.0 98 133/89 11/13 2228 99.1 92 32 107/59 97 Room Air 11/13 2058 Nasal 2.0 Cannula 11/13 2035 2.0 11/13 1810 99.1 112 43 131/85 100 Nasal 2.0 Cannula 11/13 1719 106 18 140/99 97 Nasal 2.0 Cannula I&O 11/13 0800 11/13 1600 11/14 0000 Intake Total 3449 730 1338 Output Total 397 896 650 Balance 2802 -166 688 General Appearance Alert, Oriented X3, No acute distress HEENT Atraumatic, PERRLA, Moist mucous membranes Lungs Clear to auscultation, Normal air movement Neck Supple, No masses, No thyromegaly Cardiovascular Normal S1 and S2, No murmurs, gallops, rubs Abdomen Soft, No tenderness, No rebound, No masses Extremities No clubbing, No edema, - tenderness to palpation of the knee Skin No Rashes Psych/Mental Status Mental status normal, Mood normal LAB Results Laboratory Tests 11/14 514 Chemistry Plasma Sodium (136 - 145 mmol/L) 141 Plasma Potassium (3.5 - 5.1 mmol/L) 3.3 Plasma Chloride (98 - 107 mmol/L) 107 CO2 (Enzymatic) (21 - 32 mmol/L) 25 BUN (7 - 18 mg/dL) 9 Creatinine (0.6 - 1.3 mg/dL) 0.7 Est GFR ( Amer) (mL/min) >60 Est GFR (Non-Af Amer) (mL/min) >60 Glucose (70 - 110 mg/dL) 84 Plasma Calcium (8.5 - 10.1 mg/dL) 7.1 Hematology WBC (4.5 - 11.5 K/uL) 10.2 RBC (4.50 - 5.90 M/uL) 2.46 Hgb (13.5 - 17.5 gm/dL) 7.8 Hct (41.0 - 53.0 %) 23.2 MCV (80 - 100 fL) 94 MCH (26 - 34 pg) 32 RDW (11.6 - 14.8 %) 21.4 Neut % (Auto) (50 - 75 %) 66.9 Lymph % (Auto) (25 - 40 %) 14.5 [place] % (Auto) (3 - 14 %) 15.2 Eos % (Auto) (0 - 4 %) 3.2 Baso % (Auto) (0 - 2 %) 0.2 Plt Count, EDTA (150 - 400 K/uL) 138 PUBS MCHC (31 - 37 g/dL) 34 Assessment and Plan Problem List 1. Acute blood loss anemia Plan - secondary to acute blood loss anemia from upper gi bleed - currently resolved and hemoglobin has remained stable - will transfuse one more unit and obtain hemogram before discharge today 2. Upper GI bleeding Plan - Pt had an upper gi bleed from an unknown source - Endoscopy was completely negative and did not reveal any bleeding pathology - will continue with ppis for the time being 3. Knee pain Plan - secondary to osteoarthritis - pt will need to have evaluation by out patient ortho for possible replacement - will advise pt to use ibuprofen with gastric prophylaxis
[2016-11-15 02:31] VITALS: BP 141/93
[2016-11-15 06:57] VITALS: BP 148/107
[2016-11-15 10:39] VITALS: BP 151/110
[2016-11-15] MEDS ORDERED: PERCOCET1 TA1 PO (13:24)
--- NOTE | 2016-11-15 13:26 | Provider's Discharge Care Plan ---
Problem, Goal, Plan Problem List 1. Alcoholic gastritis Instructions: - stop alcohol consumption 2. Upper GI bleeding Instructions: - avoid ibuprofen and alcohol 3. Anemia 4. Knee pain
[2016-11-15 14:22] VITALS: BP 128/100
--- NOTE | 2016-11-15 15:49 | Discharge Summary ---
Discharge Summary Report Admit Date 11/10/16 Discharge Date 11/15/16 Admission Diagnosis hematemesis Discharge Diagnosis alcohol gastritis Brief History The patient states that he has had surgery recently in his left lower abdomen a couple months ago, which was done by Dr. Wolf. Ever since that time, he has had issues of shortness of breath and some difficulty with breathing, that he has had a history of blood clots, he has bilateral DVTs as well as history of a [place] filter and Lovenox 80 mg subcutaneous b.i.d. for treatment. In the last 3 weeks, he has noticed that his legs were swollen and then he has had a couple of weeks of a rash that is red and itchy on his right leg, and then for the last 2 nights, he has had a lot of shortness of breath, especially when he tries to lay down, he cannot sleep at all, that this increasing in worse shortness of breath, brought him into the hospital today for further evaluation. In the emergency department, he was found to have an elevated BNP and a chest x-ray that was consistent with congestive heart failure and he is admitted for congestive heart failure, mild exacerbation, and treatment and management. Hospital Course Patient was admitted for anemia with hematemesis. Patient was transfused multiple units to acheive a hemoglobin above 8. Patient was seen to have continual emesis with contained coffee ground emesis. Patient had an NG tube placed and was monitored for hemodynamic instability. Patient responded to IV fluids well and had decreased emesis and NG out put. Patient was additionally seen to have very dark diarrhea. Patient was resuscitated with IV fluids and serial cbcs were performed. Patient was seen to have down trending cbc initially which prompted the staff to order an endoscopy. Patient had the endoscopy with no findings. Patient was seen to have no bloody vomitus or diarrhea from this point on. Patient had a stable hemoglobin. Patient was monitored for the next few days and patient was seen to have osteoarthritis of the knees. Patient was referred for alcohol abuse centers and for follow up with his pmd to evaluate patients knees further since his previous work up was incomplete. Patient was seen to have a stable hemoglobin without any further loss of blood from the GI tract. It was then decided that the patient could be discharged. General Appearance Alert, Oriented X3, No acute distress HEENT PERRLA, EOMI, Mucous membran moist/pink Lungs Clear to auscultation Cardiovascular Normal S1, Normal S2, No murmurs, Rubs Abdomen Soft, No tenderness Skin No Rashes, No Breakdown Discharge Instructions/Meds - avoid alcohol - follow up with your pmd - use the resources provided to use for alcohol abuse treatment
--- NOTE | 2016-11-15 15:53 | Progress Note ---
Subjective General PT doing well this morning no complaints, cbc is stable will discharged later Constitutional Denies: Fever, Chills, Sweats, Weakness, Malaise, Other. Eyes Denies: Pain, Vision Change, Conjunctival Inflammation, Eyelid Inflammation, Redness, Other. ENT Denies: Ear Pain, Ear Discharge, Nose Pain, Nasal Discharge, Nasal Congestion, Mouth Pain, Mouth Swelling, Throat Pain, Throat Swelling, Other. Respiratory Denies: Cough, Dry, SOB w/exertion, Wheezing, Hemoptysis, Pleuritic Pain, Sputum , Other. Cardiovascular Denies: Chest Pain, Palpitations, Orthopnea, PND, Edema, Light-headedness, Other. Gastrointestinal Denies: Nausea, Vomiting, Abdominal Pain, Diarrhea, Constipation, Melena, Hematochezia, Other. Genitourinary Denies: Dysuria, Frequency, Incontinence, Hematuria, Retention, Other. Musculoskeletal Other (knee pain ). Denies: Neck Pain, Shoulder Pain, Arm Pain, Back Pain, Hand Pain, Leg Pain, Foot Pain. Skin Denies: Rash, Lesions, Jaundice, Bruising, Other. Neurological Denies: Weakness, Numbness, Incoordination, Change in speech, Confusion, Seizures, Other. Physical Exam Vital Signs / I&Os Vital Signs Date Time Temp Pulse Resp B/P Pulse O2 O2 Flow FiO2 Ox Delivery Rate 11/15 1422 98.2 109 20 128/100 97 Nasal Cannula 11/15 1341 2.0 11/15 1039 99.3 94 24 151/110 96 Nasal 0.0 Cannula 11/15 0840 Room Air 11/15 0657 98.1 93 26 148/107 98 Nasal 2.0 Cannula 11/15 0231 98.2 84 17 141/93 98 Nasal 2.0 Cannula 11/14 2352 2.0 11/14 2234 99.5 95 20 148/105 95 Nasal 2.0 Cannula 11/14 1830 98.2 92 18 140/95 97 11/14 1730 98.1 106 18 131/84 98 11/14 1700 98.8 91 18 134/90 96 11/14 1625 99.0 94 18 123/77 93 11/14 1609 100.2 100 18 120/77 92 I&O 11/14 0800 11/14 1600 11/15 0000 Intake Total 1108 1045 430 Output Total 900 300 Balance 208 745 430 General Appearance Alert, Oriented X3, Mild distress HEENT EOMI, Moist mucous membranes Lungs Normal air movement Cardiovascular Normal S1 and S2, No murmurs, gallops, rubs Abdomen Normal exam Extremities No clubbing, No edema, Normal pulses Skin No Breakdown, No Significant Lesions LAB Results Laboratory Tests 11/15 0547 Chemistry Plasma Sodium (136 - 145 mmol/L) 143 Plasma Potassium (3.5 - 5.1 mmol/L) 3.8 Plasma Chloride (98 - 107 mmol/L) 109 CO2 (Enzymatic) (21 - 32 mmol/L) 24 BUN (7 - 18 mg/dL) 12 Creatinine (0.6 - 1.3 mg/dL) 0.7 Est GFR ( Amer) (mL/min) >60 Est GFR (Non-Af Amer) (mL/min) >60 Glucose (70 - 110 mg/dL) 85 Plasma Calcium (8.5 - 10.1 mg/dL) 7.5 Total Bilirubin (0.0 - 1.0 mg/dL) 0.9 AST (15 - 37 U/L) 102 ALT (12 - 78 U/L) 43 Alkaline Phosphatase (46 - 116 U/L) 86 Total Protein (6.4 - 8.2 g/dL) 4.7 Albumin (3.3 - 5.0 g/dL) 1.8 Hematology WBC (4.5 - 11.5 K/uL) 12.4 RBC (4.50 - 5.90 M/uL) 2.84 Hgb (13.5 - 17.5 gm/dL) 8.8 Hct (41.0 - 53.0 %) 26.3 MCV (80 - 100 fL) 93 MCH (26 - 34 pg) 31 RDW (11.6 - 14.8 %) 22.2 Neut % (Auto) (50 - 75 %) 65.9 Lymph % (Auto) (25 - 40 %) 15.3 [place] % (Auto) (3 - 14 %) 15.6 Eos % (Auto) (0 - 4 %) 2.8 Baso % (Auto) (0 - 2 %) 0.4 Plt Count, EDTA (150 - 400 K/uL) 199 RBC Morphology 2+ ANISOCYTOSIS PUBS MCHC (31 - 37 g/dL) 34 Assessment and Plan Problem List 1. Knee pain Plan - stable on oxycodone - advised to follow up with pmd - no further management 2. Acute blood loss anemia Plan - stable - no further episodes of bleeding - advised to stop alcohol 3. Alcoholic hepatitis Plan - currently no evidence of such
== END 2016-11-15 15:25 | disposition home or self-care (01) | DRG 241 ==
LOC: ED SRH 14:01 → TRANS SRH 14:46 → CC SRH 17:40 → ACUTE2 SRH 17:40 → CC SRH 17:40 → ACUTE2 SRH 11-14 14:02
PROVIDERS: Specialist; ADMIT Internal Medicine
PROC: 0D9670Z Drainage of Stomach with Drainage Device, Via Natural or Artificial Opening (ICD-10-PCS; 2016-11-10)
PROC: 30233N1 Transfusion of Nonautologous Red Blood Cells into Peripheral Vein, Percutaneous Approach (ICD-10-PCS; 2016-11-10)
PROC: 30233N1 Transfusion of Nonautologous Red Blood Cells into Peripheral Vein, Percutaneous Approach (ICD-10-PCS; 2016-11-11)
PROC: 0DB78ZX Excision of Stomach, Pylorus, Via Natural or Artificial Opening Endoscopic, Diagnostic (ICD-10-PCS; principal; 2016-11-11 10:00)
PROC: 30233N1 Transfusion of Nonautologous Red Blood Cells into Peripheral Vein, Percutaneous Approach (ICD-10-PCS; 2016-11-14)
DX: K29.21 Alcoholic gastritis with bleeding (principal); F10.220 Alcohol dependence with intoxication, uncomplicated; Y90.8 Blood alcohol level of 240 mg/100 ml or more; D62 Acute posthemorrhagic anemia; I95.9 Hypotension, unspecified; F10.230 Alcohol dependence with withdrawal, uncomplicated; M17.10 Unilateral primary osteoarthritis, unspecified knee

== ENCOUNTER 2016-11-27 04:18 | Inpatient (IN) | payer OTHER ==
[2016-11-27] VITALS (18 sets, daily range): BP systolic 122–140; BP diastolic 73–99
[~2016-11-27] VITALS: Ht 175.3 cm; Wt 97.8 kg
[~2016-11-27 04:18] MED LIST changes: +PERCOCET1 TA1 PO
--- NOTE | 2016-11-27 05:02 | ED ORDER SUMMARY ---
..... Patient: HENRIK WINSTON OrderSheet [facility] VisitID: [id number] [place] [address] 36y, M Registration Date/Time: 11/27/2016 ORDER SHEET Weight: 108.8 kg Allergies: None GENERAL ORDERS: Barytes Grinder (Continuous) (hemoptysis) (04:11/27/2016 Priscilla Neumann) (4:32 EInderbitzen R.N.) CBC w Diff Urgent (04:11/27/2016 Priscilla Neumann) (Ack 4:37 LMuller) (5:14 EInderbitzen R.N.) CMP Urgent (04:11/27/2016 Priscilla Neumann) (Ack 4:37 LMuller) (5:14 EInderbitzen R.N.) PT with INR Urgent (04:11/27/2016 Priscilla Neumann) (Ack 4:37 LMuller) (5:14 EInderbitzen R.N.) PTT Urgent (04:11/27/2016 Priscilla Neumann) (Ack 4:37 LMuller) (5:14 EInderbitzen R.N.) UA-Culture if indicated Urgent (04:11/27/2016 Priscilla Neumann) (Ack 4:37 LMuller) Lipase Urgent (04:11/27/2016 Priscilla Neumann) (Ack 4:37 LMuller) (5:14 EInderbitzen R.N.) Type & Screen Urgent (04:11/27/2016 Priscilla Neumann) (Ack 4:37 LMuller) (5:14 EInderbitzen R.N.) Pulse oximeter (04:11/27/2016 Priscilla Neumann) (4:32 EInderbitzen R.N.) Urine Drug Screen Urgent (04:11/27/2016 Priscilla Neumann) (Ack 4:37 LMuller) MEDICATION ORDERS: - (protonix 8 mg/hr start after bolus) (04:46 11/27/2016 Priscilla Neumann) (Cancelled: Duplicate Order5:17 EInderbitzen R.N.) IV FLUIDS: IV NS : initial bolus 1000 mL (1000 mL/hr), then none - for X1 (NOW) (04:28 11/27/2016 Priscilla Neumann) (5:02 EInderbitzen R.N.) Protonix IVP 80mg 80 mg (Mix in NS 20ml over 4min) (04:45 11/27/2016 Priscilla Neumann) (5:04 EInderbitzen R.N.) Pepcid IV 40 mg/50mL (NOW) (04:46 11/27/2016 Priscilla Neumann) (5:16 EInderbitzen R.N.) Ceftriaxone IV 1 gm/50mL (NOW) (04:46 11/27/2016 Priscilla Neumann) (5:04 EInderbitzen R.N.) Protonix IVP 40mg 40 mg (Mix in NS 10ml over 2min) (04:46 11/27/2016 Priscilla Neumann) (Cancelled: Duplicate Order5:05 Priscilla Neumann) IV NS : initial bolus 1000 mL (1000 mL/hr), then none - for X1 (NOW) (05:02 11/27/2016 Priscilla Neumann) (5:06 EInderbitzen R.N.) Fentanyl IV 50 mcg (Once now. May repeat Q1H for pain >5/10) (05:07 11/27/2016 Priscilla Neumann) (5:24 EInderbitzen R.N.) Zofran IV 4 mg (NOW) (05:24 11/27/2016 EInderbitzen R.N. verbal order read back to Priscilla Neumann) (5:25 EInderbitzen R.N.) Ativan IV 1 mg (HIGH ALERT MEDICATION, NOW) (06:39 11/27/2016 Priscilla Neumann) (6:48 EInderbitzen R.N.) IV NS : initial bolus 1000 mL (1000 mL/hr), then none - for X1 (NOW) (06:40 11/27/2016 Priscilla Neumann) (6:48 EInderbitzen R.N.) ORDER SHEET NOTES: [Electronically signed by Drake Lawson R.N. (08:11/27/2016)] [Electronically signed by Sreekanth Amor Dr. (:12/03/2016)] [Electronically locked/signed by Drake Lawson R.N. (08:11/27/2016)]
--- NOTE | 2016-11-27 05:02 | ED ORDER SUMMARY ---
..... Patient: HENRIK WINSTON OrderSheet [facility] VisitID: [id number] [place] [address] 36y, M Registration Date/Time: 11/27/2016 ORDER SHEET Weight: 108.8 kg Allergies: None GENERAL ORDERS: Cw Operator (Continuous) (hemoptysis) (04:11/27/2016 Priscilla Neumann) (4:32 EInderbitzen R.N.) CBC w Diff Urgent (04:11/27/2016 Priscilla Neumann) (Ack 4:37 LMuller) (5:14 EInderbitzen R.N.) CMP Urgent (04:11/27/2016 Priscilla Neumann) (Ack 4:37 LMuller) (5:14 EInderbitzen R.N.) PT with INR Urgent (04:11/27/2016 Priscilla Neumann) (Ack 4:37 LMuller) (5:14 EInderbitzen R.N.) PTT Urgent (04:11/27/2016 Priscilla Neumann) (Ack 4:37 LMuller) (5:14 EInderbitzen R.N.) UA-Culture if indicated Urgent (04:11/27/2016 Priscilla Neumann) (Ack 4:37 LMuller) Lipase Urgent (04:11/27/2016 Priscilla Neumann) (Ack 4:37 LMuller) (5:14 EInderbitzen R.N.) Type & Screen Urgent (04:11/27/2016 Priscilla Neumann) (Ack 4:37 LMuller) (5:14 EInderbitzen R.N.) Pulse oximeter (04:11/27/2016 Priscilla Neumann) (4:32 EInderbitzen R.N.) Urine Drug Screen Urgent (04:11/27/2016 Priscilla Neumann) (Ack 4:37 LMuller) MEDICATION ORDERS: - (protonix 8 mg/hr start after bolus) (04:46 11/27/2016 Priscilla Neumann) (Cancelled: Duplicate Order5:17 EInderbitzen R.N.) IV FLUIDS: IV NS : initial bolus 1000 mL (1000 mL/hr), then none - for X1 (NOW) (04:28 11/27/2016 Priscilla Neumann) (5:02 EInderbitzen R.N.) Protonix IVP 80mg 80 mg (Mix in NS 20ml over 4min) (04:45 11/27/2016 Priscilla Neumann) (5:04 EInderbitzen R.N.) Pepcid IV 40 mg/50mL (NOW) (04:46 11/27/2016 Priscilla Neumann) (5:16 EInderbitzen R.N.) Ceftriaxone IV 1 gm/50mL (NOW) (04:46 11/27/2016 Priscilla Neumann) (5:04 EInderbitzen R.N.) Protonix IVP 40mg 40 mg (Mix in NS 10ml over 2min) (04:46 11/27/2016 Priscilla Neumann) (Cancelled: Duplicate Order5:05 Priscilla Neumann) IV NS : initial bolus 1000 mL (1000 mL/hr), then none - for X1 (NOW) (05:02 11/27/2016 Priscilla Neumann) (5:06 EInderbitzen R.N.) Fentanyl IV 50 mcg (Once now. May repeat Q1H for pain >5/10) (05:07 11/27/2016 Priscilla Neumann) (5:24 EInderbitzen R.N.) Zofran IV 4 mg (NOW) (05:24 11/27/2016 EInderbitzen R.N. verbal order read back to Priscilla Neumann) (5:25 EInderbitzen R.N.) Ativan IV 1 mg (HIGH ALERT MEDICATION, NOW) (06:39 11/27/2016 Priscilla Neumann) (6:48 EInderbitzen R.N.) IV NS : initial bolus 1000 mL (1000 mL/hr), then none - for X1 (NOW) (06:40 11/27/2016 Priscilla Neumann) (6:48 EInderbitzen R.N.) ORDER SHEET NOTES: [Electronically signed by Drake Lawson R.N. (08:11/27/2016)] [Electronically signed by Sreekanth Amor Dr. (:12/03/2016)] [Electronically locked/signed by Drake Lawson R.N. (08:11/27/2016)]
--- NOTE | 2016-11-27 05:02 | ED NURSING NOTES ---
Clinical Report - Nurses [facility] [address] [place] [address] 11/27/2016 4:18 Patient: HENRIK WINSTON TRIAGE Triage time 04:Nov 27 2016. Acuity: LEVEL 4. Chief Complaint: (vomiting blood). 04:25 11/27/16. --04:25 Guera Madison R.N. 04:11/27/16. BP: 134/79. HR: 130. RR: 18. O2 saturation: 100%. Temp: 98.4 F. Pain level now 5/10. --04:25 Guera Madison R.N. Acuity: LEVEL 3. --07:19 Drake Lawson R.N. Weight: 108.8 kg. Height/Length: 69 inches. BMI: 35.4. --04:21 Guera Madison R.N. Medications Lisinopril Oral 20 mg, daily. Metoprolol Tartrate Oral 25 mg, daily. Percocet Oral. --04:23 Guera Madison R.N. Medication/allergy information source: the patient. --04:25 Guera Madison R.N. Allergies None. --04:23 Guera Madison R.N. History Arrived by private vehicle. Historian: patient. Unaccompanied (drove himself to ER). This started today. ( was admitted last week for the same, had endoscopy and no acute bleeding found. tonight had 1 episode of vomiting dark red clots. states feels faint). Treatment SKIDDER RUNNER: None. SOCIAL HX: Smoker- current status unknown (quit 6 months ago). Regular alcohol use; consumes five liquor. No drug use. No infectious disease exposure. ABUSE ASSESSMENT: No report of abuse. SELF HARM ASSESSMENT: A self harm assessment was performed. The patient answered "no" to the question "Have you recently felt down, depressed, or hopeless?", "Have you noticed less interest or pleasure in doing things?", "Do you have thoughts of harming or killing yourself?", "Are you here because you tried to hurt yourself?", "Have you ever tried to hurt yourself before today?", "Have you recently had thoughts about harming or killing others?" and "Do you have any dangerous items in your possession?". NUTRITIONAL RISK ASSESSMENT: The nutritional risk assessment revealed no deficiencies. FUNCTIONAL ASSESSMENT: Functional assessment: no impairments noted. LEARNING NEEDS ASSESSMENT: The learning needs assessment revealed no barriers. SKIN INTEGRITY ASSESSMENT: Skin integrity risk assessment completed. No skin integrity risk identified. --04:25 Guera Madison R.N. PROBLEMS: Abdominal Pain. UTI - Urinary Tract Infection. Syncope. Dehydration. Depression. Hypomagnesemia. Hypertension. Alcohol Intoxication. Lifestyle / Substance Problems. Hepatitis. Alcoholism. Avascular Necrosis. --04:23 Guera Madison R.N. ADDITIONAL SURGERIES: Endoscopy. Knee Surgery. --04:23 Guera Madison R.N. Interventions ID and allergy band on patient. --04:25 Guera Madison R.N. PHYSICAL ASSESSMENT 04:11/27/16. GENERAL / NEURO / PSYCH: Alert. Oriented X 4. HEENT: Mucous membranes are pink. RESPIRATORY: Breath sounds within normal limits. CVS: Pulses within normal limits. GI / : Abdomen nontender. SKIN: Skin intact. Skin is warm and dry. Normal skin turgor. --04:26 Guera Madison R.N. NURSING PROGRESS NOTES 04:11/27/16. The initial plan of care for this patient includes an assessment with efforts to address the presence of pain; impairment of the gastrointestinal system. This plan of care was discussed with the patient. Patient gowned. Reassurance given. Two patient identifiers checked. Call light placed in reach. Side rails up x 1. Bed placed in lowest position. Brakes of bed on. Patient ready for evaluation. --04:25 Guera Madison R.N. 04:26 11/27/16. Pulse oximeter and NIBP monitor placed on patient; monitor alarms on. --04:26 Guera Madison R.N. 04:40 11/27/2016 Site #1 started via IV in the left forearm with an 18g angiocath, with aseptic technique and good blood return; one attempt. Blood drawn: rainbow set. Sent to the lab. Saline lock flushed with 10 mL saline. --05:00 Guera Madison R.N. 04:45 11/27/2016 Started bag #1 1000 mL IV Fluids IV NS (Saline); at 3000 mL/hr over 20 minute(s) via site #1. Allergies verified and confirmed 5 rights. IV patency established. IV site checked: no pain, redness, or swelling. IV flushed thoroughly pre- and post-medication administration. --05:02 Guera Madison R.N. 04:50 11/27/2016 Site #2 started via IV in the left antecubital space with an 18g angiocath, with aseptic technique and good blood return; one attempt. Blood drawn: rainbow set. Labeled in the presence of the patient and sent to the lab. Saline lock flushed with 10 mL saline. --05:01 Guera Madison R.N. 04:50 11/27/2016 PROTONIX (Pantoprazole Sodium) IVP 80 mg given over 4 minute(s) via site #1. Allergies verified and confirmed 5 rights. IV patency established. IV site checked: no pain, redness, or swelling. IV flushed thoroughly pre- and post-medication administration. IVP given by RN. --05:04 Guera Madison R.NKristie 05:00 11/27/2016 Started 1 gm of Ceftriaxone IVPB in bag #1 50 mL; at 150 mL/hr over 15 minute(s) via site #1; Allergies verified and confirmed 5 rights. IV patency established. IV site checked: no pain, redness, or swelling. IV flushed thoroughly pre- and post-medication administration. --05:04 Guera Madison R.NKristie 05:05 11/27/2016 Started bag #1 1000 mL IV Fluids IV NS (Saline); at 1000 mL/hr over 60 minute(s) via site #1 via IV pump. Allergies verified and confirmed 5 rights. IV patency established. IV site checked: no pain, redness, or swelling. IV flushed thoroughly pre- and post-medication administration. --05:06 Guera Madison R.N. 05:05 11/27/2016 Started 80 mg of Pepcid IVPB in bag #1 80 mL; at 8 mL/hr over 8 hour(s) via site #1 via IV pump. Allergies verified and confirmed 5 rights. IV patency established. IV site checked: no pain, redness, or swelling. IV flushed thoroughly pre- and post-medication administration. --05:16 Guera Madison R.N. 05:05 11/27/2016 IV Fluids IV NS Discontinued: bag #1 infused. Total amount infused: 1000 mL. IV patency established. IV site checked: no pain, redness, or swelling. IV flushed thoroughly. --05:06 Guera Madison R.N. 05:20 11/27/2016 Fentanyl IVP 50 mcg given over 1 minute(s) via site #1. Allergies verified, confirmed 5 rights and sedative warning given to the patient. IV patency established. IV site checked: no pain, redness, or swelling. IV flushed thoroughly pre- and post-medication administration. IVP given by RN. --05:24 Guera Madison R.N. 05:22 11/27/2016 Zofran (Ondansetron HCl) IVP 4 mg given over 1 minute(s) via site #1. Allergies verified and confirmed 5 rights. IV patency established. IV site checked: no pain, redness, or swelling. IV flushed thoroughly pre- and post-medication administration. IVP given by RN. --05:25 Guera Madison R.N. 05:36 11/27/16. --05:36 Guera Madison R.N. 06:38 11/27/16. BP: 126/92. HR: 123. RR: 20. O2 saturation: 96%. Pain level now 6/10. --06:38 Guera Madison R.N. 06:05 11/27/2016 IV Fluids IV NS Discontinued: completed. Total amount infused: 1000 mL. IV patency established. IV site checked: no pain, redness, or swelling. IV flushed thoroughly. --06:47 Guera Madison R.N. 06:37 11/27/16. --06:37 Guera Madison R.N. 06:39 11/27/16. ( Per -- GI planning to scope patient at noon.). --06:39 Guera Madison R.N. 06:45 11/27/2016 Started bag #1 1000 mL IV Fluids IV NS (Saline); at 1000 mL/hr over 1 hour(s) via site #1 via IV pump. Allergies verified and confirmed 5 rights. IV patency established. IV site checked: no pain, redness, or swelling. IV flushed thoroughly pre- and post-medication administration. --06:48 Guera Madison R.N. 06:45 11/27/2016 Ativan (LORazepam) IVP 1 mg given over 1 minute(s) via site #1. Allergies verified, confirmed 5 rights and sedative warning given to the patient. IV patency established. IV site checked: no pain, redness, or swelling. IV flushed thoroughly pre- and post-medication administration. IVP given by RN. --06:48 Guera Madison R.N. 06:46 11/27/2016 Fentanyl IVP 50 mcg given over 1 minute(s) via site #1. Allergies verified, confirmed 5 rights and sedative warning given to the patient. IV patency established. IV site checked: no pain, redness, or swelling. IV flushed thoroughly pre- and post-medication administration. IVP given by RN. --06:48 Guera Madison R.N. ( Remedicated for pain and nausea. Additional fluids started at 1000 ml hr. Patient aware that urine sample is needed.). --06:49 Guera Madison R.N. 06:58 11/27/16. BP: 130/81. HR: 118. RR: 18. O2 saturation: 94%. Pain level now 10. --06:58 Guera Madison R.N. 07:18 11/27/16. --07:18 Drake Lawson R.N. 07:18 11/27/16. BP: 111/88. HR: 125. RR: 22. O2 saturation: 100% on room air. --07:18 Drake Lawson R.N. Intake & Output IV fluids: 1150 mL. Emesis output: 600 mL; return noted as coffee-ground appearance and dark blood and with blood clots. --05:36 Guera Madison R.N. 06:37 11/27/16. Emesis output: 200 mL; return noted as coffee-ground appearance and dark blood. --06:37 Guera Madison R.N. DISPOSITION / DISCHARGE 07:20 11/27/2016 Site #[address] upon admission; patent; flushes easily. --07:20 Drake Lawson R.N. 07:21 11/27/2016 Site #[address]; patent; flushes easily (Running NS at 999 mLs/hr LTC 400 mLs, 600mLs completed, protonix running at 8 mLs/hr 25 mLs LTC, 25 mLs infused). --07:21 Drake Lawson R.N. 07:21 11/27/16. Patient's personal items include, cane, glasses, shoes, no money, no wepons, no meds. --07:21 Drake Lawson R.N. 07:22 11/27/16. The goals identified in the patient's plan of care were met. Fall risk assessment completed. Risk factors identified include nausea. Fall interventions initiated. Patient placed in wheelchair. Brakes on Bed in low position. Patient visible from nurses' station. Instructed not to get up without assistance. --07:22 Drake Lawson R.N. 07:21 11/27/16. BP: 111/88. HR: 117. RR: 22. O2 saturation: 100% on room air. Temp: 98.2 F (oral). --07:22 Drake Lawson R.N. 07:25 11/27/16. Departure time: 07:Nov 27 2016. Condition at departure: improved and stable. The goals identified in the patient's plan of care were met. Admitted to the Critical Care Unit (301). Report was given. (to Ashley. MOELLER). --07:25 Guera Madison R.N. 07:21 11/27/16. BP: 111/88. HR: 117. RR: 22. O2 saturation: 100% on room air. Temp: 98.2 F (oral). 07:18 11/27/16. BP: 111/88. HR: 125. RR: 22. O2 saturation: 100% on room air. 06:57 11/27/16. BP: 130/81. HR: 118. RR: 18. O2 saturation: 94%. Pain level now 4/10. 06:37 11/27/16. BP: 126/92. HR: 123. RR: 20. O2 saturation: 96%. Pain level now 6/10. 05:25 11/27/16. BP: 132/82. HR: 113. RR: 20. O2 saturation: 95%. Pain level now: 710. 05:00 11/27/16. BP: 135/82. HR: 119. RR: 20. O2 saturation: 100%. Pain level now: 8/10. 04:21 11/27/16. BP: 134/79. HR: 130. RR: 18. O2 saturation: 100%. Temp: 98.4 F. Pain level now 10. --07:25 Guera Madison R.N. 08:09 11/27/16. ( Correction: LTC Protonix is 50 mLs, in ER 50 mLs infused). --08:09 Drake Lawson R.N. Locked/Released at 11/27/2016 8:10 by Drake Lawson R.N.
--- NOTE | 2016-11-27 08:50 | Progress Note ---
Subjective General Admission History and Physical Examination Patient Name: Davide Kasper Admission Date: November 27, 2016 Primary Care Provider: None Attending Physician: J Carlos Hobson M.D. Admitting Physician: J Carlos Hobson M.D. SUBJECTIVE Historian: Patient Reliability: Fair Chief Complaint: Nausea, vomiting, hematemesis History of Present Illness: The patient is a 36-year-old white male with a significant past medical history alcohol abuse/dependence, alcoholic gastritis, anemia, avascular necrosis of the hips, who presented to [facility] emergency department on the day of admission secondary to complaints of nausea, vomiting, and hematemesis-bright red blood. [facility] ER evaluation was consistent with upper GI bleed with hematemesis. Secondary to the above, the patient was admitted by Carlos Manuel Ward M.D. for further evaluation and treatment. The history present illness began on the day prior to admission when the patient experienced recurrent nausea with vomiting of bright red blood. This is unassociated with fever or chills. He denies use of nonsteroidal anti- inflammatory agents. If persistent recent use of alcohol approximately one half fifth hard liquor per day. Secondary to recurrent emesis of bright red blood the patient presented to [facility] emergency department for further evaluation and treatment. ER evaluation was consistent with upper GI bleed. Secondary to the above the patient was accepted for admission by Dr. Ward for further evaluation and treatment. PAST MEDICAL HISTORY Illnesses: 1. Alcohol abuse/dependence 2. Avascular necrosis hips Allergies: 1. No Known Drug Allergies Medications: 1. oxycodone dose unknown Surgery: 1. None Injuries: 1. No significant Hospitalizations: 1. For above medical problems FAMILY HISTORY Parents: 1. Father, Hypertension, colon cancer 2. Mother, Hypertension SOCIAL HISTORY 1. Marital Status: Single 2. Amish: None 3. Education: High school 4. 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 Occupational health exposures: No significant HABITS 1. Tobacco: Previous smoker 2. Drugs: None 3. Alcohol: 1. hard liquor per day HEALTH SUPERVISION Item/Test 1. Not reviewed IMMUNIZATIONS: 1. Pneumococcal: No previous 2. Influenza: Unknown 3. Tetanus: Unknown REVIEW OF SYSTEMS Remarkable for those things stated in the history of present illness and past medical history. Seventeen point review of system completed with the following notable findings: None Physical Exam Vital Signs / I&Os Vital Signs Date Time Temp Pulse Resp B/P Pulse O2 O2 Flow FiO2 Ox Delivery Rate 11/27 0815 99.0 126 22 137/76 99 Room Air General Appearance Alert, Cooperative, No acute distress HEENT Atraumatic, PERRLA, EOMI, Moist mucous membranes Lungs Clear to auscultation, Normal air movement Neck Supple, No JVD Cardiovascular Regular rate and rhythm, Normal S1 and S2, No murmurs, gallops, rubs, mild tachycardia Abdomen Normal bowel sounds, Soft, No tenderness, No guarding Extremities No cyanosis, No clubbing, No edema Neurological Cranial nerves intact, Strength 5/5 x4 ext's, No lateralizing signs Psych/Mental Status Mental status normal, Mood normal LAB Results Laboratory Tests 11/27 11/27 0440 0440 Chemistry Plasma Sodium (136 - 145 mmol/L) 142 Plasma Potassium (3.5 - 5.1 mmol/L) 3.6 Plasma Chloride (98 - 107 mmol/L) 100 CO2 (Enzymatic) (21 - 32 mmol/L) 26 BUN (7 - 18 mg/dL) 6 Creatinine (0.6 - 1.3 mg/dL) 0.7 Est GFR ( Amer) (mL/min) >60 Est GFR (Non-Af Amer) (mL/min) >60 Glucose (70 - 110 mg/dL) 113 Plasma Calcium (8.5 - 10.1 mg/dL) 8.0 Plasma Magnesium (1.8 - 2.4 mg/dL) 1.1 Total Bilirubin (0.0 - 1.0 mg/dL) 1.3 AST (15 - 37 U/L) 338 ALT (12 - 78 U/L) 90 Alkaline Phosphatase (46 - 116 U/L) 203 Total Protein (6.4 - 8.2 g/dL) 6.1 Albumin (3.3 - 5.0 g/dL) 2.4 Lipase (73 - 393 U/L) 243 Coagulation INR (0.8 - 1.2) 1.0 APTT (24 - 34 SECONDS) 32 Hematology WBC (4.5 - 11.5 K/uL) 13.8 RBC (4.50 - 5.90 M/uL) 3.17 Hgb (13.5 - 17.5 gm/dL) 10.2 Hct (41.0 - 53.0 %) 30.2 MCV (80 - 100 fL) 95 MCH (26 - 34 pg) 32 RDW (11.6 - 14.8 %) 22.4 Neut % (Auto) (50 - 75 %) 84.0 Lymph % (Auto) (25 - 40 %) 10.5 [place] % (Auto) (3 - 14 %) 5.4 Eos % (Auto) (0 - 4 %) 0.1 Baso % (Auto) (0 - 2 %) 0 Plt Count, EDTA (150 - 400 K/uL) 208 RBC Morphology 1+ ANISOCYTOSIS PUBS MCHC (31 - 37 g/dL) 34 Microbiology Date/Time Procedure - Status Source Growth 11/27 0837 MRSA Screen - RECD NASAL Assessment and Plan Problem List 1. Upper GI bleeding Plan -patient presents with findings of upper GI bleed -Protonix 40 mg IV twice a day -Follow serial hematocrit every 6 hours -Transfusion as necessary -Upper endoscopy today 2. Alcoholism Plan -patient with history of alcohol abuse/dependence -Encourage enrollment in a call treatment program posthospitaliz -Patient appears to treated 2 and alcohol detox programs no long-term treatment program -Patient appears in early alcohol withd 3. Alcoholic hepatitis Plan -patient with findings consistent with mild alcoholic hepatitis -Monitor -Encourage alcohol abstinence program post discharge 4. Hypomagnesemia Status Acute Onset Date Unknown Plan -IV magnesium supplementation -Monitor 5. Anemia Status Acute Onset Date Unknown Plan -mild -Serum iron profile, B12, folate -Monitor insetting of upper GI bleed Current status: Fair, unstable Anticipated discharge date: Anticipated discharge in 3-4 days Anticipated discharge placement: Home Patient care time: Time spent in chart review, patient interview, physical exam, CPOE, and care documentation: 70 minutes Visit to patient today: 2 Complexity of care: High E&M Codes Admission: Inpt-High/12398
--- NOTE | 2016-11-27 08:50 | Progress Note ---
Subjective General Admission History and Physical Examination Patient Name: Davide Kasper Admission Date: November 27, 2016 Primary Care Provider: None Attending Physician: J Carlos Hobson M.D. Admitting Physician: J Carlos Hobson M.D. SUBJECTIVE Historian: Patient Reliability: Fair Chief Complaint: Nausea, vomiting, hematemesis History of Present Illness: The patient is a 36-year-old white male with a significant past medical history alcohol abuse/dependence, alcoholic gastritis, anemia, avascular necrosis of the hips, who presented to [facility] emergency department on the day of admission secondary to complaints of nausea, vomiting, and hematemesis-bright red blood. [facility] ER evaluation was consistent with upper GI bleed with hematemesis. Secondary to the above, the patient was admitted by Carlos Manuel Ward M.D. for further evaluation and treatment. The history present illness began on the day prior to admission when the patient experienced recurrent nausea with vomiting of bright red blood. This is unassociated with fever or chills. He denies use of nonsteroidal anti- inflammatory agents. If persistent recent use of alcohol approximately one half fifth hard liquor per day. Secondary to recurrent emesis of bright red blood the patient presented to [facility] emergency department for further evaluation and treatment. ER evaluation was consistent with upper GI bleed. Secondary to the above the patient was accepted for admission by Dr. Ward for further evaluation and treatment. PAST MEDICAL HISTORY Illnesses: 1. Alcohol abuse/dependence 2. Avascular necrosis hips Allergies: 1. No Known Drug Allergies Medications: 1. oxycodone dose unknown Surgery: 1. None Injuries: 1. No significant Hospitalizations: 1. For above medical problems FAMILY HISTORY Parents: 1. Father, Hypertension, colon cancer 2. Mother, Hypertension SOCIAL HISTORY 1. Marital Status: Single 2. Taoism: None 3. Education: High school 4. 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 Occupational health exposures: No significant HABITS 1. Tobacco: Previous smoker 2. Drugs: None 3. Alcohol: 1. hard liquor per day HEALTH SUPERVISION Item/Test 1. Not reviewed IMMUNIZATIONS: 1. Pneumococcal: No previous 2. Influenza: Unknown 3. Tetanus: Unknown REVIEW OF SYSTEMS Remarkable for those things stated in the history of present illness and past medical history. Seventeen point review of system completed with the following notable findings: None Physical Exam Vital Signs / I&Os Vital Signs Date Time Temp Pulse Resp B/P Pulse O2 O2 Flow FiO2 Ox Delivery Rate 11/27 0815 99.0 126 22 137/76 99 Room Air General Appearance Alert, Cooperative, No acute distress HEENT Atraumatic, PERRLA, EOMI, Moist mucous membranes Lungs Clear to auscultation, Normal air movement Neck Supple, No JVD Cardiovascular Regular rate and rhythm, Normal S1 and S2, No murmurs, gallops, rubs, mild tachycardia Abdomen Normal bowel sounds, Soft, No tenderness, No guarding Extremities No cyanosis, No clubbing, No edema Neurological Cranial nerves intact, Strength 5/5 x4 ext's, No lateralizing signs Psych/Mental Status Mental status normal, Mood normal LAB Results Laboratory Tests 11/27 11/27 0440 0440 Chemistry Plasma Sodium (136 - 145 mmol/L) 142 Plasma Potassium (3.5 - 5.1 mmol/L) 3.6 Plasma Chloride (98 - 107 mmol/L) 100 CO2 (Enzymatic) (21 - 32 mmol/L) 26 BUN (7 - 18 mg/dL) 6 Creatinine (0.6 - 1.3 mg/dL) 0.7 Est GFR ( Amer) (mL/min) >60 Est GFR (Non-Af Amer) (mL/min) >60 Glucose (70 - 110 mg/dL) 113 Plasma Calcium (8.5 - 10.1 mg/dL) 8.0 Plasma Magnesium (1.8 - 2.4 mg/dL) 1.1 Total Bilirubin (0.0 - 1.0 mg/dL) 1.3 AST (15 - 37 U/L) 338 ALT (12 - 78 U/L) 90 Alkaline Phosphatase (46 - 116 U/L) 203 Total Protein (6.4 - 8.2 g/dL) 6.1 Albumin (3.3 - 5.0 g/dL) 2.4 Lipase (73 - 393 U/L) 243 Coagulation INR (0.8 - 1.2) 1.0 APTT (24 - 34 SECONDS) 32 Hematology WBC (4.5 - 11.5 K/uL) 13.8 RBC (4.50 - 5.90 M/uL) 3.17 Hgb (13.5 - 17.5 gm/dL) 10.2 Hct (41.0 - 53.0 %) 30.2 MCV (80 - 100 fL) 95 MCH (26 - 34 pg) 32 RDW (11.6 - 14.8 %) 22.4 Neut % (Auto) (50 - 75 %) 84.0 Lymph % (Auto) (25 - 40 %) 10.5 [place] % (Auto) (3 - 14 %) 5.4 Eos % (Auto) (0 - 4 %) 0.1 Baso % (Auto) (0 - 2 %) 0 Plt Count, EDTA (150 - 400 K/uL) 208 RBC Morphology 1+ ANISOCYTOSIS PUBS MCHC (31 - 37 g/dL) 34 Microbiology Date/Time Procedure - Status Source Growth 11/27 0837 MRSA Screen - RECD NASAL Assessment and Plan Problem List 1. Upper GI bleeding Plan -patient presents with findings of upper GI bleed -Protonix 40 mg IV twice a day -Follow serial hematocrit every 6 hours -Transfusion as necessary -Upper endoscopy today 2. Alcoholism Plan -patient with history of alcohol abuse/dependence -Encourage enrollment in a call treatment program posthospitaliz -Patient appears to treated 2 and alcohol detox programs no long-term treatment program -Patient appears in early alcohol withd 3. Alcoholic hepatitis Plan -patient with findings consistent with mild alcoholic hepatitis -Monitor -Encourage alcohol abstinence program post discharge 4. Hypomagnesemia Status Acute Onset Date Unknown Plan -IV magnesium supplementation -Monitor 5. Anemia Status Acute Onset Date Unknown Plan -mild -Serum iron profile, B12, folate -Monitor insetting of upper GI bleed Current status: Fair, unstable Anticipated discharge date: Anticipated discharge in 3-4 days Anticipated discharge placement: Home Patient care time: Time spent in chart review, patient interview, physical exam, CPOE, and care documentation: 70 minutes Visit to patient today: 2 Complexity of care: High E&M Codes Admission: Inpt-High/[id number]
--- NOTE | 2016-11-27 09:03 | CONSULTATION REPORT ---
DATE OF CONSULTATION: 11/27/2016 CHIEF COMPLAINT: 1. Hematemesis HISTORY OF PRESENT ILLNESS: The patient is a 36-year-old man who presents to the emergency department today with coffee-ground emesis as well as a history of multiple episodes of gastrointestinal bleeding. The patient, on this occasion, reports that he was vomiting blood as well as coffee-ground material and that things brightened up quite a bit. This all started today. He has had 2 endoscopies over the last month, with similar episodes. He reports in both cases that it was more dark material, but in this case things brightened up quite a bit during his ongoing emesis episodes. This patient has a history of alcoholism and reports that he cut back, but still admits to consuming about one-half bottle of hard liquor a day. He reports heavier drinking in the past. Recent endoscopy reports were reviewed, and these were by Dr. Wolf. These demonstrated, on 11/11/2016, a finding of esophagitis but no other specific active bleeding source. On 05/22/2016, he had a scope demonstrating gastritis, possibly alcohol-related, and candidal esophagitis. MEDICAL/SURGICAL HISTORY: Alcoholism and alcohol withdrawal. Bilateral avascular necrosis of the hips. Urinary tract infection. Dehydration, depression, hypomagnesemia, hypertension, hepatitis. Prior surgeries: His knee surgery as well as upper GI endoscopy. MEDICATIONS: 1. Lisinopril 20 mg daily. 2. Metoprolol 25 mg per day. 3. Oral Percocet. ALLERGIES: 1. NONE KNOWN. SOCIAL HISTORY: The patient drinks half a bottle per day; more heavily in the past. He has used marijuana in the distant past. Does not currently smoke. 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 FAMILY HISTORY: His father had hypertension and colon cancer, otherwise no other congenital diseases. REVIEW OF SYSTEMS: On this occasion, he is reporting no abdominal pain. He is short of breath. He has not had a productive cough. He reports no genitourinary symptoms. He does have bilateral hip pain, which causes him to have pain with walking. He reports no recent neurologic changes. PHYSICAL EXAMINATION: VITAL SIGNS: Initial vital signs are blood pressure 134/79, heart rate 130, respirations 18, temperature 98.4. EARS AND NOSE: Demonstrate no gross external lesions. Eyes are equal. He did not appear icteric. His mental status was normal. He is oriented and provided appropriate history. He did not confabulate. NECK: Without palpable masses or thyromegaly. CHEST: Clear, without wheeze or rales. HEART: Regular, without murmur or gallop. ABDOMEN: Revealed he is moderately obese. He had no palpable organomegaly or ascites. Bowel sounds are active. LAB/IMAGING: Review with the nurses demonstrated greenish, liquidy stools which are heme-positive. Initial CBC demonstrated white count 13.8, hemoglobin and hematocrit of 10.2 and 11.2, platelet count of 208. His INR and his PTT are normal. Glucose is slightly elevated at 113, BUN and creatinine of 0.6 and 0.7, bilirubin is listed as elevated, but currently pending. Alkaline phosphatase, SGOT and SGPT are all elevated. Lipase and amylase are low or normal. IMPRESSION: 1. Upper gastrointestinal bleed 2. Alcoholism PLAN: The patient will be admitted by Medicine Service and managed. I recommended we go ahead and repeat his EGD on this occasion. My review of his chart shows that he was scoped last on 11/11/2016, but the other scope was rather remote. I think at this point, the GI bleed has accelerated to the point of more red blood, and we may have a higher likelihood to determine the actual cause. Due to this history of recurrent nature, other anomaly, such as Dieulafoy, enter the picture, and we will need to look carefully for vascular anomalies rather than the typical bleed, such as varices and ulcers.
--- NOTE | 2016-11-27 14:00 | OPERATIVE REPORT ---
DATE OF SURGERY: 11/27/2016 SURGEON: Bala Chan MD PREOPERATIVE DIAGNOSIS: 1. Upper gastrointestinal bleed POSTOPERATIVE DIAGNOSES: 1. Erosive esophagitis. 2. Hiatal hernia PROCEDURE PERFORMED: 1. Esophagogastroduodenoscopy ANESTHESIA: Total IV general. INDICATIONS: The patient is a 36-year-old man with ongoing hematemesis. He has a history of alcoholism. SURGICAL TECHNIQUE: The patient was taken to the endoscopy suite, where total IV general was administered and the patient was placed in the left lateral decubitus position. The well-lubricated endoscope was inserted down the esophagus and stomach under direct vision. There were some drops of blood in the lower esophagus seen during insertion, but no ongoing bleeding. The gastric body was entered and appeared to be free of bleeding sites. The first and second and third parts of the duodenum were all examined to help exclude the possibility of a Dieulafoy's anomaly further down the gastrointestinal tract. On withdrawal, the entire area was again inspected. A retroflexed view demonstrated a small sliding hiatal hernia. On withdrawal, the squamocolumnar junction was again visualized, and at this point it was a little more macerated, with some pink oozing at that location. There were also some white patches further up the esophagus, which are consistent with his previous diagnosis of candidal esophagitis. In summary, this patient has erosive esophagitis, and this is almost certainly the bleeding source that brought him to the hospital. He does not appear to have varices. I have recommended that he be treated with proton pump inhibitors, possibly with coating agents, and obviously alcohol abstinence in the immediate future.
[2016-11-27] MEDS ORDERED: LOPRESSOR25 MG PO (17:21)
[2016-11-28] VITALS (16 sets, daily range): BP systolic 116–152; BP diastolic 70–106
--- NOTE | 2016-11-28 18:43 | Progress Note ---
Subjective General Note Date: November 28, 2016 Admission Date: November 27, 2016 Hospital Day: 2 PCP: None Status: Inpatient Advanced Directive: FULL CODE Room: 306 Brief History: The patient is a 36-year-old white male with a significant past medical history all call abuse/dependence, alcoholic gastritis, anemia, avascular necrosis of the hips, who presented to [facility] emergency department on the day of admission secondary to complaints of nausea, vomiting, and hematemesis-bright red blood. [facility] ER evaluation was consistent with upper GI bleed with hematemesis. Secondary to the above, the patient was admitted by Carlos Manuel Ward M.D. for further evaluation and treatment. For other history present illness, past medical history, family history, social history, review of systems, and admission physical examination please see the patient's history and physical examination and ER visit note in the patient's medical record. Subjective: The patient remains slightly confused this a.m. Persistent altered mental status associated with alcohol withdrawal syndrome. No further nausea or vomiting. No hematemesis. No abdominal pain. Patient requests: None Medications and Allergies Medications Current Medications Sig/Jamarcus Start time Last Medication Dose Route Stop Time Status Admin Lorazepam 1 MG Q6H 11/30 1115 AC PO 12/01 0516 Lorazepam 1 MG Q6H 11/30 1115 AC IV 12/01 0516 Lorazepam 1 MG Q6H 11/29 1115 AC PO 11/30 0516 Lorazepam 1 MG Q6H 11/29 1115 AC IV 11/30 0516 Pantoprazole Sodium 40 MG PPIBID 11/28 1600 AC 11/28 Sesquihydrate PO 1603 Oxycodone HCl 5 MG Q6H PRN 11/28 1415 AC 11/28 PO 1439 Lorazepam 1 MG Q4H 11/28 1115 AC 11/28 PO 11/29 0716 1808 Lorazepam 1 MG Q4H 11/28 1115 AC IV 11/29 0716 Multivit/ 1 TAB QAM 11/28 0900 AC 11/28 Folic Acid/Iron PO 0840 Thiamine HCl 100 MG QAM 11/28 0900 AC 11/28 PO 0840 Diazepam 5 MG ASDIRECTED PRN 11/27 1115 AC IV Lorazepam 0.5 MG Q30MIN PRN 11/27 1115 AC PO Lorazepam 0.5 MG Q30MIN PRN 11/27 1115 AC 11/28 IV 0840 Promethazine HCl See Dose Q6H PRN 11/27 0930 AC 11/27 Insts (1) IV 0935 Acetaminophen 650 MG Q4H PRN 11/27 08 AC KY Al Hydrox/Mg Hydrox/ 15 ML Q1H PRN 11/27 08 AC Simethicone PO Albuterol Sulfate 2.5 MG Q3H PRN 11/27 08 AC IN Atropine Sulfate 0.5 MG Q3MIN PRN 11/27 08 AC IV Lidocaine HCl See Dose ONCE PRN 11/27 08 AC Insts (2) IV Magnesium Hydroxide 10 ML DAILY PRN 11/27 08 AC PO Morphine Sulfate 1 MG Q2H PRN 11/27 08 AC 11/28 IV 1814 Morphine Sulfate 2 MG Q3M PRN 11/27 08 AC 11/28 IV 0840 Nitroglycerin 0.4 MG Q5M PRN 11/27 08 AC SL Morphine Sulfate See Dose Q4H PRN 11/27 0630 AC Insts (3) IV Ondansetron HCl 4 MG Q8H PRN 11/27 0630 AC IV Dose Instructions: (1)Promethazine HCl: 12.5 - 25 MG (2)Lidocaine HCl: 1.5 MG/KG (3)Morphine Sulfate: 2 - 4 MG Allergies Coded Allergies: NKA (05/19/16) Physical Exam Vital Signs / I&Os Vital Signs Date Time Temp Pulse Resp B/P Pulse O2 O2 Flow FiO2 Ox Delivery Rate 11/28 1805 100.0 118 16 122/74 97 11/28 1436 99.3 102 16 131/90 97 11/28 1042 99.0 98 20 119/79 98 Room Air 11/28 0909 104 18 116/81 98 Room Air 11/28 0900 3.0 11/28 0828 112 18 130/89 93 11/28 0712 99.0 78 18 122/70 98 Nasal 2.0 Cannula 11/28 0617 137/100 11/28 0613 98.8 91 18 152/105 100 Nasal 2.0 Cannula 11/28 0505 99.0 102 17 152/106 98 Nasal 2.0 Cannula 11/28 0400 90 18 132/94 99 11/28 0320 92 17 123/80 100 03 0256 134/95 11/28 0202 98.8 84 16 147/104 100 Nasal 2.0 Cannula 11/28 0100 90 20 135/97 100 11/28 0000 92 143/100 100 11/27 2346 96 11/27 2300 99.1 93 19 135/99 11/27 2211 99.1 94 17 132/87 100 Nasal 2.0 Cannula 11/272 96 20 134/88 99 Nasal 2.0 Cannula 11/27 2026 Nasal 2.0 Cannula 11/27 2016 93 24 127/83 100 Nasal 3.0 Cannula 11/27 1924 102 11/27 1912 100 24 137/84 99 Nasal 3.0 Cannula I&O 11/28 0000 11/27 1600 11/27 0800 Intake Total 701 2873 Output Total 350 100 Balance 351 2773 General Appearance Cooperative, No acute distress, slightly lethargic Lungs Clear to auscultation, Normal air movement Cardiovascular Regular rate and rhythm, Normal S1 and S2 Abdomen Normal bowel sounds, Soft, No tenderness Extremities No cyanosis, No clubbing, No edema Neurological Cranial nerves intact, No lateralizing signs Psych/Mental Status Mood normal, Confused, lethargic LAB Results Laboratory Tests 11/28 11/28 1515 0420 Chemistry Plasma Magnesium (1.8 - 2.4 mg/dL) 1.5 Toxicology Urine Opiates Screen (NEGATIVE) POSITIVE Urine Methadone Screen (NEGATIVE) NEGATIVE Ur Barbiturates Screen (NEGATIVE) NEGATIVE U Amphetamin/Meth Scrn (NEGATIVE) NEGATIVE MDMA (Ecstasy) Screen (NEGATIVE) NEGATIVE U Benzodiazepines Scrn (NEGATIVE) NEGATIVE Urine Cocaine Screen (NEGATIVE) NEGATIVE U Cannabinoids Screen (NEGATIVE) NEGATIVE Urines Urine Color [place]IDEA Urine Appearance CLEAR Urine pH (5.0 - 8.0) 7.5 Ur Specific [place] (1.010 - 1.030) 1.020 Urine Protein (NEGATIVE) NEGATIVE Urine Ketones (NEGATIVE) 1+ Urine Blood (NEGATIVE) NEGATIVE Urine Nitrite (NEGATIVE) NEGATIVE Urine Bilirubin (NEGATIVE) NEGATIVE Urine Urobilinogen (0.2 - 1.0 EU/dL) 4.0 Ur Leukocyte Esterase (NEGATIVE) NEGATIVE Urine RBC (0 - 1 rbc/hpf) 0-1 Urine WBC (0 - 1 wbc/hpf) 3-5 Ur Epithelial Cells (0 - 5 EPI/hpf) 1-3 Urine Bacteria (NONE SEEN) NONE SEEN Urine Glucose (NEGATIVE) NEGATIVE Urine Comment CULT NOT INDICATED 11/28 11/28 11/27 0420 0400 9766 Chemistry Plasma Sodium (136 - 145 mmol/L) 143 Plasma Potassium (3.5 - 5.1 mmol/L) 3.6 Plasma Chloride (98 - 107 mmol/L) 105 CO2 (Enzymatic) (21 - 32 mmol/L) 27 BUN (7 - 18 mg/dL) 8 Creatinine (0.6 - 1.3 mg/dL) 0.6 Est GFR ( Amer) (mL/min) >60 Est GFR (Non-Af Amer) (mL/min) >60 Glucose (70 - 110 mg/dL) 70 Plasma Calcium (8.5 - 10.1 mg/dL) 7.4 Total Bilirubin (0.0 - 1.0 mg/dL) 1.6 AST (15 - 37 U/L) 231 ALT (12 - 78 U/L) 63 Alkaline Phosphatase (46 - 116 U/L) 144 Total Protein (6.4 - 8.2 g/dL) 4.9 Albumin (3.3 - 5.0 g/dL) 1.9 Hematology WBC (4.5 - 11.5 K/uL) 6.0 RBC (4.50 - 5.90 M/uL) 2.52 Hgb (13.5 - 17.5 gm/dL) 8.0 Cancelled 7.9 Hct (41.0 - 53.0 %) 24.2 Cancelled 24.5 MCV (80 - 100 fL) 96 MCH (26 - 34 pg) 32 RDW (11.6 - 14.8 %) 21.9 Neut % (Auto) (50 - 75 %) 58 Lymph % (Auto) (25 - 40 %) 16 [place] % (Auto) (3 - 14 %) 3 Eos % (Auto) (0 - 4 %) 2 Baso % (Auto) (0 - 2 %) 0 Band Neutrophils % (0 - 8 %) 21 Metamyelocytes % (0 - 1 %) 0 Myelocytes (0 - 1 %) 0 Other Cell Type 0 Plt Count, EDTA (150 - 400 K/uL) 83 RBC Morphology 1+ ANISOCYTOSIS PUBS MCHC (31 - 37 g/dL) 33 Assessment and Plan Problem List 1. Upper GI bleeding Plan -Patient presented with findings of upper GI bleed -Endoscopy consistent with esophagitis -Continue protonic 40 mg by mouth twice a day -No evidence of ongoing bleeding -Persistent anemia which is stable. -Monitor 2. Esophagitis Status Acute Onset Date Unknown Plan -See above -Protonix 40 mg by mouth twice a day -Patient asymptomatic -No evidence of ongoing GI bleeding 3. Alcohol withdrawal syndrome Status Acute Onset Date Unknown Plan -Patient with findings of alcohol withdrawal syndrome -Persistent altered mental status, symptoms improving -Continue alcohol withdrawal protocol -Less agitation 4. Hypomagnesemia Status Acute Onset Date Unknown Plan -Patient with findings of hypomagnesemia -Magnesium improved. Magnesium noted to be 1.5 today, 1.1 yesterday -Continue IV/by mouth supplementation -Monitor 5. Hypertension Plan -Patient with findings of hypertension -Blood pressure mildly elevated but adequate control -Low-salt diet -Monitor -Continue present therapy Current status: Fair, unstable Anticipated discharge date: Anticipated discharge in 2-3 days Anticipated discharge placement: Home with outpatient alcohol treatment program Patient care time: Time spent in chart review, patient interview, physical exam, CPOE, and care documentation: 35 minutes Visit to patient today: 2 Complexity of care: High E&M Codes Rounding: Inpt-High/[id number]
[2016-11-29 02:42] VITALS: BP 135/86
[2016-11-29 06:31] VITALS: BP 136/95
[2016-11-29 10:15] VITALS: BP 133/89
[2016-11-29 14:23] VITALS: BP 140/99
[2016-11-29 18:04] VITALS: BP 138/84
--- NOTE | 2016-11-29 18:27 | Progress Note ---
Subjective General Note Date: November 29, 2016 Admission Date: November 27, 2016 Hospital Day: 3 PCP: None Status: Inpatient Advanced Directive: FULL CODE Room: 306 Brief History: The patient is a 36-year-old white male with a significant past medical history all call abuse/dependence, alcoholic gastritis, anemia, avascular necrosis of the hips, who presented to [facility] emergency department on the day of admission secondary to complaints of nausea, vomiting, and hematemesis-bright red blood. [facility] ER evaluation was consistent with upper GI bleed with hematemesis. Secondary to the above, the patient was admitted by Carlos Manuel Ward M.D. for further evaluation and treatment. For other history present illness, past medical history, family history, social history, review of systems, and admission physical examination please see the patient's history and physical examination and ER visit note in the patient's medical record. Subjective: Status much improved. Persistent mild mental status changes. Ambulation improving. Oral intake and improving. Patient requests: None Medications and Allergies Medications Current Medications Sig/Jamarcus Start time Last Medication Dose Route Stop Time Status Admin Lorazepam See Dose Q30MIN PRN 11/29 0915 AC 11/29 Insts (1) PO 2217 Lorazepam See Dose Q30MIN PRN 11/29 0915 AC Insts (2) IV Pantoprazole Sodium 40 MG PPIBID 11/28 1600 AC 11/29 Sesquihydrate PO 1815 Oxycodone HCl 5 MG Q6H PRN 11/28 1415 AC 11/29 PO 1411 Multivit/ 1 TAB QAM 11/28 0900 AC 11/29 Folic Acid/Iron PO 0811 Thiamine HCl 100 MG QAM 11/28 0900 AC 11/29 PO 0811 Diazepam 5 MG ASDIRECTED PRN 11/27 1115 AC IV Promethazine HCl See Dose Q6H PRN 11/27 0930 AC 11/27 Insts (3) IV 0935 Acetaminophen 650 MG Q4H PRN 11/27 0800 AC WI Al Hydrox/Mg Hydrox/ 15 ML Q1H PRN 11/27 0800 AC Simethicone PO Albuterol Sulfate 2.5 MG Q3H PRN 11/27 0800 AC IN Atropine Sulfate 0.5 MG Q3MIN PRN 11/27 0800 AC IV Lidocaine HCl See Dose ONCE PRN 11/27 0800 AC Insts (4) IV Magnesium Hydroxide 10 ML DAILY PRN 11/27 799 AC PO Morphine Sulfate 1 MG Q2H PRN 11/27 799 AC 11/28 IV 1814 Morphine Sulfate 2 MG Q3M PRN 11/27 799 AC 11/29 IV 1000 Nitroglycerin 0.4 MG Q5M PRN 11/27 799 AC SL Morphine Sulfate See Dose Q4H PRN 11/27 629 AC Insts (5) IV Ondansetron HCl 4 MG Q8H PRN 11/27 629 AC IV Dose Instructions: (1)Lorazepam: 0.5 - 1 MG (2)Lorazepam: 0.5 - 1 MG (3)Promethazine HCl: 12.5 - 25 MG (4)Lidocaine HCl: 1.5 MG/KG (5)Morphine Sulfate: 2 - 4 MG Allergies Coded Allergies: NKA (05/19/16) Physical Exam Vital Signs / I&Os Vital Signs Date Time Temp Pulse Resp B/P Pulse O2 O2 Flow FiO2 Ox Delivery Rate 11/29 1804 99.9 120 20 138/84 98 Room Air 11/29 1423 98.8 88 14 140/99 97 Room Air 11/29 1015 99.1 98 18 133/89 100 Room Air 11/29 0631 99.7 68 18 136/95 97 Room Air 11/29 0242 98.8 86 17 135/86 98 Room Air 11/28 2242 98.6 94 16 138/94 96 Room Air 11/28 1954 Room Air I&O 11/29 0000 11/28 1600 11/28 0800 Intake Total 640 830 737 Output Total 250 600 800 Balance 390 230 -63 General Appearance Alert, Cooperative, No acute distress Lungs Clear to auscultation, Normal air movement Cardiovascular Regular rate and rhythm, Normal S1 and S2, mild tachycardia Abdomen Normal bowel sounds, Soft, No tenderness Extremities No cyanosis, No clubbing, No edema Neurological Cranial nerves intact, No lateralizing signs Psych/Mental Status Mood normal, mild confusion LAB Results Laboratory Tests 11/29 0510 Chemistry Plasma Sodium (136 - 145 mmol/L) 140 Plasma Potassium (3.5 - 5.1 mmol/L) 3.7 Plasma Chloride (98 - 107 mmol/L) 105 CO2 (Enzymatic) (21 - 32 mmol/L) 28 BUN (7 - 18 mg/dL) 8 Creatinine (0.6 - 1.3 mg/dL) 0.6 Est GFR ( Amer) (mL/min) >60 Est GFR (Non-Af Amer) (mL/min) >60 Glucose (70 - 110 mg/dL) 86 Plasma Calcium (8.5 - 10.1 mg/dL) 7.8 Total Bilirubin (0.0 - 1.0 mg/dL) 1.4 AST (15 - 37 U/L) 234 ALT (12 - 78 U/L) 71 Alkaline Phosphatase (46 - 116 U/L) 144 Total Protein (6.4 - 8.2 g/dL) 5.2 Albumin (3.3 - 5.0 g/dL) 1.9 Hematology WBC (4.5 - 11.5 K/uL) 6.5 RBC (4.50 - 5.90 M/uL) 2.48 Hgb (13.5 - 17.5 gm/dL) 8.0 Hct (41.0 - 53.0 %) 24.0 MCV (80 - 100 fL) 97 MCH (26 - 34 pg) 32 RDW (11.6 - 14.8 %) 21.9 Neut % (Auto) (50 - 75 %) 71.3 Lymph % (Auto) (25 - 40 %) 19.6 [place] % (Auto) (3 - 14 %) 6.5 Eos % (Auto) (0 - 4 %) 2.4 Baso % (Auto) (0 - 2 %) 0.2 Plt Count, EDTA (150 - 400 K/uL) 72 PUBS MCHC (31 - 37 g/dL) 33 Assessment and Plan Problem List 1. Esophagitis Status Acute Onset Date Unknown Plan -Patient with findings of erosive esophagitis -Protonix 40 mg by mouth twice a day -No ongoing GI bleeding -H&H stable -Possible discharge in a.m. if stable 2. Upper GI bleeding Plan -Resolved -Monitor -Continue Protonix 40 mg by mouth twice a day 3. Anemia Status Acute Onset Date Unknown Plan -Moderate anemia -H&H stable -No signs of ongoing GI bleeding -Hold transfusion -Multivitamins/iron supplementation on discharge 4. Alcohol withdrawal syndrome Status Acute Onset Date Unknown Plan -Patient with findings of alcohol withdrawal syndrome -Status improved -When necessary Ativan -Plan discharge in a.m. if stable Current status: Fair, improved Anticipated discharge date: Anticipated discharge in a.m. Anticipated discharge placement: Home Patient care time: Time spent in chart review, patient interview, physical exam, CPOE, and care documentation: 25 minutes Visit to patient today: 1 Complexity of care: Moderate E&M Codes Rounding: Inpt-Moderate/[id number]
[2016-11-29 22:05] VITALS: BP 133/97
[2016-11-30 02:17] VITALS: BP 160/128
[2016-11-30 02:19] VITALS: BP 157/117
[2016-11-30 02:26] VITALS: BP 152/111
[2016-11-30 05:05] VITALS: BP 145/100
[2016-11-30 07:41] VITALS: BP 144/102
--- NOTE | 2016-11-30 08:08 | Discharge Summary ---
Discharge Summary Report Admit Date 11/27/16 Discharge Date 11/30/16 Admission Diagnosis 1. Upper GI bleed 2. Anemia 3. Alcohol abuse/dependence 4. Alcohol withdrawal syndrome Discharge Diagnosis 1. Upper GI bleed secondary to erosive esophagitis 2. Anemia 3. Alcohol abuse/dependence 4. Alcohol withdrawal syndrome Brief History The patient is a 36-year-old white male with a significant past medical history all call abuse/dependence, alcoholic gastritis, anemia, avascular necrosis of the hips, who presented to [facility] emergency department on the day of admission secondary to complaints of nausea, vomiting, and hematemesis-bright red blood. [facility] ER evaluation was consistent with upper GI bleed with hematemesis. Secondary to the above, the patient was admitted by Carlos Manuel Ward M.D. for further evaluation and treatment. For other history present illness, past medical history, family history, social history, review of systems, and admission physical examination please see the patient's history and physical examination and ER visit note in the patient's medical record. Hospital Course The following problems and their management were noted during the patient's hospitalization: 1. Upper GI bleed secondary to erosive esophagitis The patient presented with findings of upper GI bleeding. He underwent treatment with IV Protonix. Subsequent upper endoscopy revealed erosive esophagitis. The patient had no significant ongoing bleeding following his first hospital day. There was no evidence of GI bleeding at the time of discharge. He was discharged on Protonix 40 mg by mouth twice a day. Outpatient follow-up with PCP this week. H&H stable. 2. Anemia The patient was noted to have anemia felt secondary to upper GI bleeding. He required transfusional therapy during his hospital stay. His H&H was stable at the time of discharge. H&H on discharge was 8.4/25.2. He was discharged on multivitamin/iron supplementation. he was instructed to avoid any alcohol use post discharge. He has been instructed to avoid the use of anti-inflammatory agents. 3. Alcohol abuse/dependence The patient presented with findings of alcohol abuse/dependence. He exhibited alcohol withdrawal syndrome during his hospital stay. This resolved prior to his discharge. He was encouraged to follow-up with Alcoholics Anonymous post discharge. He is aware of the health risks of ongoing alcohol usage. 4. Alcohol withdrawal syndrome The patient experienced alcohol withdrawal syndrome during his hospital stay. This had resolved prior to his discharge. He was noted to have normal mental status without symptoms of alcohol withdrawal prior to discharge. He was encouraged to follow an alcohol abstinence program post discharge. General Appearance Alert, Oriented X3, Cooperative, No acute distress Lungs Clear to auscultation, Normal air movement Cardiovascular Regular Rate, Normal S1, Normal S2 Abdomen Normal bowel sounds, Soft, No tenderness Neurological Normal speech, Strength at 5/5 X4 ext, Cranial nerves 3-12 NL Psych/Mental Status Mental status NL, Mood NL Lab/Imaging Laboratory Tests 11/30 0535 Chemistry Plasma Sodium (136 - 145 mmol/L) 140 Plasma Potassium (3.5 - 5.1 mmol/L) 3.7 Plasma Chloride (98 - 107 mmol/L) 103 CO2 (Enzymatic) (21 - 32 mmol/L) 26 BUN (7 - 18 mg/dL) 8 Creatinine (0.6 - 1.3 mg/dL) 0.7 Est GFR ( Amer) (mL/min) >60 Est GFR (Non-Af Amer) (mL/min) >60 Glucose (70 - 110 mg/dL) 84 Plasma Calcium (8.5 - 10.1 mg/dL) 8.1 Total Bilirubin (0.0 - 1.0 mg/dL) 1.3 AST (15 - 37 U/L) 245 ALT (12 - 78 U/L) 80 Alkaline Phosphatase (46 - 116 U/L) 145 Total Protein (6.4 - 8.2 g/dL) 5.7 Albumin (3.3 - 5.0 g/dL) 2.0 Hematology WBC (4.5 - 11.5 K/uL) 6.9 RBC (4.50 - 5.90 M/uL) 2.59 Hgb (13.5 - 17.5 gm/dL) 8.4 Hct (41.0 - 53.0 %) 25.2 MCV (80 - 100 fL) 98 MCH (26 - 34 pg) 33 RDW (11.6 - 14.8 %) 22.5 Neut % (Auto) (50 - 75 %) 64 Lymph % (Auto) (25 - 40 %) 22 [place] % (Auto) (3 - 14 %) 9 Eos % (Auto) (0 - 4 %) 3 Baso % (Auto) (0 - 2 %) 0 Band Neutrophils % (0 - 8 %) 2 Metamyelocytes % (0 - 1 %) 0 Myelocytes (0 - 1 %) 0 Other Cell Type 0 Plt Count, EDTA (150 - 400 K/uL) 75 RBC Morphology 1+ ANISOCYTOSIS PUBS MCHC (31 - 37 g/dL) 33 Discharge Instructions/Meds For other recommendations regarding discharge diet, activity, followup, and discharge medications please see the patient's discharge instructions. Discharge condition: Fair, improved Greater than 30 min. was spent in the patient's discharge preparation including discharge interview and physical examination, progress note, discharge instructions, and discharge summary The patient was interviewed and examined on the day of discharge. E&M Codes Discharge: Inpt >30 min spent/[id number]
[2016-11-30] MEDS ORDERED: PROTONIX40 MG PO (08:43)
[2016-11-30] MEDS ORDERED: OXAYDO5 MG PO (08:43)
[2016-11-30] MEDS ORDERED: IRON325 MG PO (08:46)
[2016-11-30] MEDS ORDERED: VOL-TAB RX PO (08:46)
--- NOTE | 2016-11-30 08:49 | Provider's Discharge Care Plan ---
Problem, Goal, Plan Problem List 1. Esophagitis Goals: Improve disease control, Prevent disease progress Instructions: Follow up as directed, Take meds as directed 2. Alcoholism Goals: Improve disease control, Prevent disease progress Instructions: Follow up as directed, Take meds as directed, Enroll in AA post discharge. No alcohol use. No use of aspirin or other NSAIDs 3. Anemia Goals: Improve disease control, Prevent disease progress Instructions: Follow up as directed, Take meds as directed, Have Dr. Gonzáles recheck blood count next week.
[2016-11-30 09:39] VITALS: BP 113/80
--- NOTE | 2016-12-03 21:29 | ED DISCHARGE INSTRUCTIONS ---
Patient: HENRIK WINSTON General Instructions VisitID: [id number] [address] [place] [address] 36y, M Registration Date/Time: 11/27/2016 Upper GI bleed Alcohol withdrawal, acute. (Electronically signed by Sreekanth Amor Dr. 12/03/2016 21:28)
--- NOTE | 2016-12-03 21:29 | ED CLINICAL REPORT ---
Clinical Report - Physicians/Mid Levels [facility] [address] [place] [address] 11/27/2016 4:18 Patient: HENRIK WINSTON Arrived- By private vehicle. Historian- patient. HISTORY OF PRESENT ILLNESS Chief Complaint: VOMITING BLOOD. This started today, has been moderate and is still present (worsening). It was abrupt in onset and has been constant but is not gone now. The patient has not had dark stools. No recent travel. No known contact with a sick individual. Similar symptoms previously: Recent medical care: The patient was seen recently in the emergency department. REVIEW OF SYSTEMS No fever, cough, difficulty breathing, chest pain or skin rash. All systems otherwise negative, except as recorded above. PAST HISTORY See nurses notes. Medications: Lisinopril Oral 20 mg, daily. Metoprolol Tartrate Oral 25 mg, daily. Percocet Oral. Allergies: None. SOCIAL HISTORY Former smoker. Alcohol use. No drug use. No recent travel. Is a local resident. ADDITIONAL NOTES The nursing notes have been reviewed. PHYSICAL EXAM Vital Signs: 11/27/2016 04:25 BP: 134/79. HR: 130. RR: 18. O2 saturation: 100%. Temp: 98.4 F. Blood pressure normal. Oxygen saturation normal. Appearance: Alert. Oriented X3. No acute distress. Eyes: Pupils equal, round and reactive to light. Eyes normal inspection. No pale conjunctivae. ENT: Ears normal. Nose normal. Pharynx normal. Neck: Normal inspection. Neck supple. CVS: Normal heart rate and rhythm. Heart sounds normal. Pulses normal. Respiratory: No respiratory distress. Breath sounds normal. No rales, rhonchi or wheezes. Abdomen: Soft and nontender. Bowel sounds normal. No organomegaly. No mass. Rectal: Strongly heme-positive stool; hemoccult director quality systems check passed. (POC test reference range: negative). Rectal exam normal and nontender. Skin: Skin warm and dry. Normal skin color. No rash. Normal skin turgor. Extremities: Extremities exhibit normal ROM. No lower extremity edema. LABS, X-RAYS, AND EKG Laboratory Tests: CBC w Diff: (JASS: 11/27/2016 04:40) ( [facility] 11/27/2016 05:52) Final results Test Result Flag Units (Reference) WHITE BLOOD COUNT 13.8 H K/uL (4.5-11.5) RED BLOOD COUNT 3.17 L M/uL (4.50-5.90) HEMOGLOBIN 10.2 L gm/dL (13.5-17.5) HEMATOCRIT 30.2 L % (41.0-53.0) MEAN CELL VOLUME 95 fL (80-100) MEAN CORPUSCULAR HGB 32 pg (26-34) MEAN CORPUSCULAR HGB CONC 34 g/dL (31-37) RED CELL DISTRIBUTION WIDTH 22.4 H % (11.6-14.8) PLATELET COUNT 208 K/uL (150-400) NEUTROPHIL % 84.0 H % (50-75) LYMPH % 10.5 L % (25-40) MONO % 5.4 % (3-14) EOSINOPHIL % 0.1 % (0-4) BASOPHIL % 0 % (0-2) RBC MORPHOLOGY 1+ ANISOCYTOSIS PT with INR: (JASS: 11/27/2016 04:40) ( [facility] 11/27/2016 05:12) Final results Test Result Flag Units (Reference) INR 1.0 (0.8-1.2) Low Intensity Therapy: INR 1.5-2.0 PT range 18.5-23.1Mod.Intensity Therapy: INR 2.0-3.0 PT range 23.1-31.5High Intensity Therapy: INR 2.5-3.5 PT range 27.4-35.5High Intensity Therapy 2: INR 3.0-4.0 PT range 31.5-39.3 APTT 32 SECONDS (24-34) CMP: (JASS: 11/27/2016 04:40) ( [facility] 11/27/2016 05:16) Final results Test Result Flag Units (Reference) GLUCOSE 113 H mg/dL (70-110) BUN 6 L mg/dL (7-18) CREATININE 0.7 mg/dL (0.6-1.3) Estimated GFR >60 mL/min Estimated GFR- >60 mL/min Note: Persistent reduction over 3 months in eGFR<60 mL/min/1.73 m2 defines CKD. Patients with eGFR values>=60 mL/min/1.73 m2 may also have CKD if evidence ofpersistent proteinuria. Additional information may be foundat www.kidney.org. SODIUM 142 mmol/L (136-145) POTASSIUM 3.6 mmol/L (3.5-5.1) CHLORIDE 100 mmol/L (98-107) CARBON DIOXIDE 26 mmol/L (21-32) CALCIUM 8.0 L mg/dL (8.5-10.1) TOTAL PROTEIN 6.1 L g/dL (6.4-8.2) ALBUMIN 2.4 L g/dL (3.3-5.0) BILIRUBIN, TOTAL 1.3 H mg/dL (0.0-1.0) ALKALINE PHOSPHATASE 203 H U/L (46-116) AST (SGOT) 338 H U/L (15-37) ALT (SGPT) 90 H U/L (12-78) LIPASE 243 U/L (73-393) Type & Screen: (JASS: 11/27/2016 04:40) ( MsgRcvd 11/27/2016 05:56) Final results Test Result Flag Units (Reference) PATIENT BLOOD TYPE O Positive Above is a corrected result. Previously reported on ( MsgRcvd 11/27/2016 05:28) as: PATIENT BLOOD TYPE O Positive ANTIBODY SCREEN NEGATIVE . PROGRESS AND PROCEDURES Course of Care: The patient is a 36 yo male with hx of alcohol dependence and GI bleed presenting for evaluation of GI bleed. Patient with 400 - 600 cc of coffee ground type emesis. Patient is guaiac positive. Patient given protonix bolus and drip with ceftriaxone. Patient typed and screened. Will monitor closed. Past scope reviewed. No area of bleed found on last admit. Work up shows ptient with h/h that does not need immediate transfusion. Spoke with general surgery and medicine. patient to be admitted to the ICU and scoped today. Discused with patient work up, diagnosis, and plan of care. Patient agreeable to treatment and plan. Ativan provided for early signs of withdrawal. Reported last drink < 24 hours ago. Fentanyl provided for pain to reduce the risk of dropping BP. Patient monitored in the emergency department and transferred to the ICU. Prior to transfer, patient noted to be fluid responsive. Critical care performed (40 minutes). Time is exclusive of separately billable procedures. Time includes: direct patient care, patient reassessment, coordination of patient care, interpretation of data (laboratory data), review of patient's medical records, medical consultation and documentation of patient care. Consult obtained. general surgery. Disposition: Admitted to the Critical Care Unit. CLINICAL IMPRESSION Upper GI bleed Alcohol withdrawal, acute. (Electronically signed by Sreekanth Amor Dr. 12/03/2016 21:28)
--- NOTE | 2016-12-03 21:29 | ED MAR SUMMARY ---
..... Medication Administration Record [facility] [address] [place] [address] Patient: HENRIK WINSTON Visit ID: [id number] 36y, M Weight: 108.8 kg Height/Length: 69 in BMI: 35.4 ALLERGIES: None Start 04:45 11/27/2016 Guera Madison R.N., Stop 05:05 11/27/2016 Guera Madison R.N. Medication Administered: IV NS (SALINE), Dose: IV Fluids over 20 minute(s), Rate: 3000 mL/hr, Dispensed: 1000 mL bag, Site: #1 left forearm. Medication Ordered: IV NS : initial bolus 1000 mL (1000 mL/hr), then none - for X1 (NOW). Given 04:50 11/27/2016 Guera Madison R.N. Medication Administered: PROTONIX [IVP] (PANTOPRAZOLE SODIUM), Dose: 80 mg IVP over 4 minute(s), Site: #1 left forearm. Medication Ordered: Protonix IVP 80mg 80 mg (Mix in NS 20ml over 4min). Start 05:00 11/27/2016 Guera Madison R.N. Medication Administered: CEFTRIAXONE [IVPB], Dose: 1 gm IVPB over 15 minute(s), Rate: 150 mL/hr, Dispensed: 50 mL bag, Site: #1 left forearm. Medication Ordered: Ceftriaxone IV 1 gm/50mL (NOW). Start 05:05 11/27/2016 Guera Madison R.N., Stop 06:05 11/27/2016 Guera Madison R.N. Medication Administered: IV NS (SALINE), Dose: IV Fluids over 60 minute(s), Rate: 1000 mL/hr, Dispensed: 1000 mL bag, Site: #1 left forearm. Medication Ordered: IV NS : initial bolus 1000 mL (1000 mL/hr), then none - for X1 (NOW). Start 05:05 11/27/2016 Guera Madison R.N. Medication Administered: PEPCID [IVPB], Dose: 80 mg IVPB over 8 hour(s), Rate: 8 mL/hr, Dispensed: 80 mL bag, Site: #1 left forearm. Medication Ordered: Pepcid IV 40 mg/50mL (NOW). Given 05:20 11/27/2016 Guera Madison R.N. Medication Administered: FENTANYL [IVP], Dose: 50 mcg IVP over 1 minute(s), Site: #1 left forearm. Medication Ordered: Fentanyl IV 50 mcg (Once now. May repeat Q1H for pain >5/10). Given 05:11/27/2016 Guera Madison R.N. Medication Administered: ZOFRAN [IVP] (ONDANSETRON HCL), Dose: 4 mg IVP over 1 minute(s), Site: #1 left forearm. Medication Ordered: Zofran IV 4 mg (NOW). Given 06:45 11/27/2016 Guera Madison R.N. Medication Administered: ATIVAN [IVP] (LORAZEPAM), Dose: 1 mg IVP over 1 minute(s), Site: #1 left forearm. Medication Ordered: Ativan IV 1 mg (HIGH ALERT MEDICATION, NOW). Start 06:45 11/27/2016 Guera Madison R.N. Medication Administered: IV NS (SALINE), Dose: IV Fluids over 1 hour(s), Rate: 1000 mL/hr, Dispensed: 1000 mL bag, Site: #1 left forearm. Medication Ordered: IV NS : initial bolus 1000 mL (1000 mL/hr), then none - for X1 (NOW). Given 06:46 11/27/2016 Guera Madison R.N. Medication Administered: FENTANYL [IVP], Dose: 50 mcg IVP over 1 minute(s), Site: #1 left forearm. Medication Ordered: Fentanyl IV 50 mcg (Once now. May repeat Q1H for pain >5/10).
--- NOTE | 2016-12-03 21:29 | ED CLINICAL REPORT ---
Clinical Report - Physicians/Mid Levels [facility] [address] [place] [address] 11/27/2016 4:18 Patient: HENRIK WINSTON Arrived- By private vehicle. Historian- patient. HISTORY OF PRESENT ILLNESS Chief Complaint: VOMITING BLOOD. This started today, has been moderate and is still present (worsening). It was abrupt in onset and has been constant but is not gone now. The patient has not had dark stools. No recent travel. No known contact with a sick individual. Similar symptoms previously: Recent medical care: The patient was seen recently in the emergency department. REVIEW OF SYSTEMS No fever, cough, difficulty breathing, chest pain or skin rash. All systems otherwise negative, except as recorded above. PAST HISTORY See nurses notes. Medications: Lisinopril Oral 20 mg, daily. Metoprolol Tartrate Oral 25 mg, daily. Percocet Oral. Allergies: None. SOCIAL HISTORY Former smoker. Alcohol use. No drug use. No recent travel. Is a local resident. ADDITIONAL NOTES The nursing notes have been reviewed. PHYSICAL EXAM Vital Signs: 11/27/2016 04:25 BP: 134/79. HR: 130. RR: 18. O2 saturation: 100%. Temp: 98.4 F. Blood pressure normal. Oxygen saturation normal. Appearance: Alert. Oriented X3. No acute distress. Eyes: Pupils equal, round and reactive to light. Eyes normal inspection. No pale conjunctivae. ENT: Ears normal. Nose normal. Pharynx normal. Neck: Normal inspection. Neck supple. CVS: Normal heart rate and rhythm. Heart sounds normal. Pulses normal. Respiratory: No respiratory distress. Breath sounds normal. No rales, rhonchi or wheezes. Abdomen: Soft and nontender. Bowel sounds normal. No organomegaly. No mass. 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 (POC test reference range: negative). Rectal exam normal and nontender. Skin: Skin warm and dry. Normal skin color. No rash. Normal skin turgor. Extremities: Extremities exhibit normal ROM. No lower extremity edema. LABS, X-RAYS, AND EKG Laboratory Tests: CBC w Diff: (JASS: 11/27/2016 04:40) ( [facility] 11/27/2016 05:52) Final results Test Result Flag Units (Reference) WHITE BLOOD COUNT 13.8 H K/uL (4.5-11.5) RED BLOOD COUNT 3.17 L M/uL (4.50-5.90) HEMOGLOBIN 10.2 L gm/dL (13.5-17.5) HEMATOCRIT 30.2 L % (41.0-53.0) MEAN CELL VOLUME 95 fL (80-100) MEAN CORPUSCULAR HGB 32 pg (26-34) MEAN CORPUSCULAR HGB CONC 34 g/dL (31-37) RED CELL DISTRIBUTION WIDTH 22.4 H % (11.6-14.8) PLATELET COUNT 208 K/uL (150-400) NEUTROPHIL % 84.0 H % (50-75) LYMPH % 10.5 L % (25-40) MONO % 5.4 % (3-14) EOSINOPHIL % 0.1 % (0-4) BASOPHIL % 0 % (0-2) RBC MORPHOLOGY 1+ ANISOCYTOSIS PT with INR: (JASS: 11/27/2016 04:40) ( [facility] 11/27/2016 05:12) Final results Test Result Flag Units (Reference) INR 1.0 (0.8-1.2) Low Intensity Therapy: INR 1.5-2.0 PT range 18.5-23.1Mod.Intensity Therapy: INR 2.0-3.0 PT range 23.1-31.5High Intensity Therapy: INR 2.5-3.5 PT range 27.4-35.5High Intensity Therapy 2: INR 3.0-4.0 PT range 31.5-39.3 APTT 32 SECONDS (24-34) CMP: (JASS: 11/27/2016 04:40) ( [facility] 11/27/2016 05:16) Final results Test Result Flag Units (Reference) GLUCOSE 113 H mg/dL (70-110) BUN 6 L mg/dL (7-18) CREATININE 0.7 mg/dL (0.6-1.3) Estimated GFR >60 mL/min Estimated GFR- >60 mL/min Note: Persistent reduction over 3 months in eGFR<60 mL/min/1.73 m2 defines CKD. Patients with eGFR values>=60 mL/min/1.73 m2 may also have CKD if evidence ofpersistent proteinuria. Additional information may be foundat www.kidney.org. SODIUM 142 mmol/L (136-145) POTASSIUM 3.6 mmol/L (3.5-5.1) CHLORIDE 100 mmol/L (98-107) CARBON DIOXIDE 26 mmol/L (21-32) CALCIUM 8.0 L mg/dL (8.5-10.1) TOTAL PROTEIN 6.1 L g/dL (6.4-8.2) ALBUMIN 2.4 L g/dL (3.3-5.0) BILIRUBIN, TOTAL 1.3 H mg/dL (0.0-1.0) ALKALINE PHOSPHATASE 203 H U/L (46-116) AST (SGOT) 338 H U/L (15-37) ALT (SGPT) 90 H U/L (12-78) LIPASE 243 U/L (73-393) Type & Screen: (JASS: 11/27/2016 04:40) ( MsgRcvd 11/27/2016 05:56) Final results Test Result Flag Units (Reference) PATIENT BLOOD TYPE O Positive Above is a corrected result. Previously reported on ( MsgRcvd 11/27/2016 05:28) as: PATIENT BLOOD TYPE O Positive ANTIBODY SCREEN NEGATIVE . PROGRESS AND PROCEDURES Course of Care: The patient is a 36 yo male with hx of alcohol dependence and GI bleed presenting for evaluation of GI bleed. Patient with 400 - 600 cc of coffee ground type emesis. Patient is guaiac positive. Patient given protonix bolus and drip with ceftriaxone. Patient typed and screened. Will monitor closed. Past scope reviewed. No area of bleed found on last admit. Work up shows ptient with h/h that does not need immediate transfusion. Spoke with general surgery and medicine. patient to be admitted to the ICU and scoped today. Discused with patient work up, diagnosis, and plan of care. Patient agreeable to treatment and plan. Ativan provided for early signs of withdrawal. Reported last drink < 24 hours ago. Fentanyl provided for pain to reduce the risk of dropping BP. Patient monitored in the emergency department and transferred to the ICU. Prior to transfer, patient noted to be fluid responsive. Critical care performed (40 minutes). Time is exclusive of separately billable procedures. Time includes: direct patient care, patient reassessment, coordination of patient care, interpretation of data (laboratory data), review of patient's medical records, medical consultation and documentation of patient care. Consult obtained. general surgery. Disposition: Admitted to the Critical Care Unit. CLINICAL IMPRESSION Upper GI bleed Alcohol withdrawal, acute. (Electronically signed by Sreekanth Amor Dr. 12/03/2016 21:28)
--- NOTE | 2016-12-03 21:29 | ED DISCHARGE INSTRUCTIONS ---
Patient: HENRIK WINSTON General Instructions [facility] VisitID: [id number] [address] [place] [address] 36y, M Registration Date/Time: 11/27/2016 Upper GI bleed Alcohol withdrawal, acute. (Electronically signed by Sreekanth Amor Dr. 12/03/2016 21:28)
--- NOTE | 2016-12-03 21:29 | ED MED RECONCILIATION SUMMARY ---
Patient: HENRIK WINSTON Medication Reconciliation Report [facility] VisitID: [id number] [address] [place] [address] 36y, M Registration Date/Time: 11/27/2016 Weight: 108.8 kg Height/Length: 69 in. BMI: 35.4 ALLERGIES: None The patient's Home Medications are listed below: THE FOLLOWING MEDICATIONS NEED TO BE RECONCILED: Lisinopril Oral 20 mg, daily Metoprolol Tartrate Oral 25 mg, daily Percocet Oral The source(s) of the original Home Medication information: patient The following Medications were given to the patient in the Emergency Department: IV NS IV Fluids bolus 0, then 3000 mL/hr, administered: 11/27/2016 4:45:00 AM PROTONIX [IVP] IVP 80 mg, administered: 11/27/2016 4:50:00 AM Ceftriaxone [IVPB] IVPB bolus 0, then 1 gm 150 mL/hr, administered: 11/27/2016 5:00:00 AM IV NS IV Fluids bolus 0, then 1000 mL/hr, administered: 11/27/2016 5:05:00 AM Pepcid [IVPB] IVPB bolus 0, then 80 mg 8 mL/hr, administered: 11/27/2016 5:05:00 AM Fentanyl [IVP] IVP 50 mcg, administered: 11/27/2016 5:20:00 AM Zofran [IVP] IVP 4 mg, administered: 11/27/2016 5:22:00 AM IV NS IV Fluids bolus 0, then 1000 mL/hr, administered: 11/27/2016 6:45:00 AM Ativan [IVP] IVP 1 mg, administered: 11/27/2016 6:45:00 AM Fentanyl [IVP] IVP 50 mcg, administered: 11/27/2016 6:46:00 AM The following Medications were prescribed to the patient: None.
--- NOTE | 2016-12-03 21:29 | ED MAR SUMMARY ---
..... Medication Administration Record [facility] [address] [place] [address] Patient: HENRIK WINSTON Visit ID: [id number] 36y, M Weight: 108.8 kg Height/Length: 69 in BMI: 35.4 ALLERGIES: None Start 04:45 11/27/2016 Guera Madison R.N., Stop 05:05 11/27/2016 Guera Madison R.N. Medication Administered: IV NS (SALINE), Dose: IV Fluids over 20 minute(s), Rate: 3000 mL/hr, Dispensed: 1000 mL bag, Site: #1 left forearm. Medication Ordered: IV NS : initial bolus 1000 mL (1000 mL/hr), then none - for X1 (NOW). Given 04:50 11/27/2016 Guera Madison R.N. Medication Administered: PROTONIX [IVP] (PANTOPRAZOLE SODIUM), Dose: 80 mg IVP over 4 minute(s), Site: #1 left forearm. Medication Ordered: Protonix IVP 80mg 80 mg (Mix in NS 20ml over 4min). Start 05:00 11/27/2016 Guera Madison R.N. Medication Administered: CEFTRIAXONE [IVPB], Dose: 1 gm IVPB over 15 minute(s), Rate: 150 mL/hr, Dispensed: 50 mL bag, Site: #1 left forearm. Medication Ordered: Ceftriaxone IV 1 gm/50mL (NOW). Start 05:05 11/27/2016 Guera Madison R.N., Stop 06:05 11/27/2016 Guera Madison R.N. Medication Administered: IV NS (SALINE), Dose: IV Fluids over 60 minute(s), Rate: 1000 mL/hr, Dispensed: 1000 mL bag, Site: #1 left forearm. Medication Ordered: IV NS : initial bolus 1000 mL (1000 mL/hr), then none - for X1 (NOW). Start 05:05 11/27/2016 Guera Madison R.N. Medication Administered: PEPCID [IVPB], Dose: 80 mg IVPB over 8 hour(s), Rate: 8 mL/hr, Dispensed: 80 mL bag, Site: #1 left forearm. Medication Ordered: Pepcid IV 40 mg/50mL (NOW). Given 05:20 11/27/2016 Guera Madison R.N. Medication Administered: FENTANYL [IVP], Dose: 50 mcg IVP over 1 minute(s), Site: #1 left forearm. Medication Ordered: Fentanyl IV 50 mcg (Once now. May repeat Q1H for pain >5/10). Given 05:11/27/2016 Guera Madison R.N. Medication Administered: ZOFRAN [IVP] (ONDANSETRON HCL), Dose: 4 mg IVP over 1 minute(s), Site: #1 left forearm. Medication Ordered: Zofran IV 4 mg (NOW). Given 06:45 11/27/2016 Guera Madison R.N. Medication Administered: ATIVAN [IVP] (LORAZEPAM), Dose: 1 mg IVP over 1 minute(s), Site: #1 left forearm. Medication Ordered: Ativan IV 1 mg (HIGH ALERT MEDICATION, NOW). Start 06:45 11/27/2016 Guera Madison R.N. Medication Administered: IV NS (SALINE), Dose: IV Fluids over 1 hour(s), Rate: 1000 mL/hr, Dispensed: 1000 mL bag, Site: #1 left forearm. Medication Ordered: IV NS : initial bolus 1000 mL (1000 mL/hr), then none - for X1 (NOW). Given 06:46 11/27/2016 Guera Madison R.N. Medication Administered: FENTANYL [IVP], Dose: 50 mcg IVP over 1 minute(s), Site: #1 left forearm. Medication Ordered: Fentanyl IV 50 mcg (Once now. May repeat Q1H for pain >5/10).
--- NOTE | 2016-12-03 21:29 | ED MED RECONCILIATION SUMMARY ---
Patient: HENRIK WINSTON Medication Reconciliation Report [facility] VisitID: [id number] [address] [place] [address] 36y, M Registration Date/Time: 11/27/2016 Weight: 108.8 kg Height/Length: 69 in. BMI: 35.4 ALLERGIES: None The patient's Home Medications are listed below: THE FOLLOWING MEDICATIONS NEED TO BE RECONCILED: Lisinopril Oral 20 mg, daily Metoprolol Tartrate Oral 25 mg, daily Percocet Oral The source(s) of the original Home Medication information: patient The following Medications were given to the patient in the Emergency Department: IV NS IV Fluids bolus 0, then 3000 mL/hr, administered: 11/27/2016 4:45:00 AM PROTONIX [IVP] IVP 80 mg, administered: 11/27/2016 4:50:00 AM Ceftriaxone [IVPB] IVPB bolus 0, then 1 gm 150 mL/hr, administered: 11/27/2016 5:00:00 AM IV NS IV Fluids bolus 0, then 1000 mL/hr, administered: 11/27/2016 5:05:00 AM Pepcid [IVPB] IVPB bolus 0, then 80 mg 8 mL/hr, administered: 11/27/2016 5:05:00 AM Fentanyl [IVP] IVP 50 mcg, administered: 11/27/2016 5:20:00 AM Zofran [IVP] IVP 4 mg, administered: 11/27/2016 5:22:00 AM IV NS IV Fluids bolus 0, then 1000 mL/hr, administered: 11/27/2016 6:45:00 AM Ativan [IVP] IVP 1 mg, administered: 11/27/2016 6:45:00 AM Fentanyl [IVP] IVP 50 mcg, administered: 11/27/2016 6:46:00 AM The following Medications were prescribed to the patient: None.
== END 2016-11-30 10:37 | disposition home or self-care (01) | DRG 243 ==
LOC: ED SRH 04:18 → TRANS SRH 06:21 → CC SRH 07:25 → ACUTE2 SRH 12:40 → CC SRH 12:41
PROVIDERS: Surgery; ADMIT Family Medicine
PROC: 0DJ08ZZ Inspection of Upper Intestinal Tract, Via Natural or Artificial Opening Endoscopic (ICD-10-PCS; principal; 2016-11-27 12:00)
DX: K20.8 Other esophagitis (principal); K22.8 Other specified diseases of esophagus; B37.81 Candidal esophagitis; K44.9 Diaphragmatic hernia without obstruction or gangrene; F10.230 Alcohol dependence with withdrawal, uncomplicated; D62 Acute posthemorrhagic anemia; K70.10 Alcoholic hepatitis without ascites; E83.42 Hypomagnesemia; I10 Essential (primary) hypertension
CPT/HCPCS: 50004; 60001; 83526; 90001; 90004; 90074; 90100; 90155; 91004; 91162; 91163; 91295; 91672; 92132; 92235; 92720; 92760; 92761; 92762; 92763; 92764; 92765; 92766; 92767; 94001; 94060; 95059; 95061

== ENCOUNTER 2017-01-01 19:02 | Inpatient (IN) | payer OTHER ==
[~2017-01-01] VITALS: Ht 175.3 cm; Wt 107.8 kg
[~2017-01-01 19:02] MED LIST changes: +IRON325 MG PO; +LOPRESSOR25 MG PO; +OXAYDO5 MG PO; +PROTONIX40 MG PO; +VOL-TAB RX PO
--- NOTE | 2017-01-01 20:56 | ED ORDER SUMMARY ---
..... Patient: HENRIK WINSTON OrderSheet [facility] VisitID: [id number] [place] [address] 36y, M Registration Date/Time: 01/01/2017 ORDER SHEET Weight: 95.2 kg (stated) Allergies: None GENERAL ORDERS: Pathology Supervisor (Continuous) (unstable GI bleed) (19:10 01/01/2017 Priscilla Neumann) (19:40 EHassan R.N.) - (two large bore IVs) (19:10 01/01/2017 Priscilla Neumann) (19:40 EHassan R.N.) CBC w Diff Urgent (19:10 01/01/2017 Priscilla Neumann) (Ack 19:14 Alek) (20:15 EHassan R.N.) CMP Urgent (19:01/01/2017 Priscilla Neumann) (Ack 19:14 Alek) (20:15 Gena R.N.) UA-Culture if indicated Urgent (19:10 01/01/2017 Priscilla Neumann) (Ack 19:14 Alek) PT with INR Urgent (19:10 01/01/2017 Priscilla Neumann) (Ack 19:14 Alek) (20:15 EHassan R.N.) PTT Urgent (19:01/01/2017 Priscilla Neumann) (Ack 19:14 Alek) (20:15 Gena R.N.) Lipase Urgent (19:01/01/2017 Priscilla Neumann) (Ack 19:14 Alek) (20:15 Marlonn R.N.) Type & Screen Urgent (19:10 01/01/2017 Priscilla Neumann) (Ack 19:14 Alek) (20:15 Marlonn R.N.) Pulse oximeter (19:01/01/2017 Priscilla Neumann) (19:40 EHassan R.N.) EKG - ER Stat (19:01/01/2017 Priscilla Neumann) (Ack 19:14 Alek) (19:35 IJurca ER Tech1) Transfuse PRBCs (2 units) (20:55 01/01/2017 Priscilla Neumann) (Ack 20:58 IJhi ER Tech1) (22:32 Gena Kirby) Transfuse FFP (2 units) (20:55 01/01/2017 Priscilla Neumann) (Ack 20:58 Lashawn ER Tech1) (22:32 Gena Kirby) - (20:56 01/01/2017 Priscilla Neumann) (Ack 20:58 [facility] MEDICATION ORDERS: - (Protonix drip 8mg/hr start now) (19:11 01/01/2017 Priscilla Neumann) (20:34 Gena R.Manohar) IV FLUIDS: IV NS : initial bolus 2L, then none - for X1 (NOW) (19:10 01/01/2017 Priscilla Neumann) (20:23 Gena Kirby) IV Saline Lock (19:10 01/01/2017 Priscilla Neumann) (20:15 Gena R.N.) Protonix IVP 80mg 80 mg (Mix in NS 20ml over 4min) (19:11 01/01/2017 Priscilla Neumann) (20:24 Gena Kirby) Ceftriaxone IV 1 gm/50mL (NOW) (19:12 01/01/2017 Priscilla Neumann) (20:23 Gena Kirby) Zofran IV 4 mg (NOW) (20:47 01/01/2017 Gena Kirby verbal order read back to Priscilla Neumann) (20:55 Gena R.N.) Fentanyl IV 50 mcg (HIGH ALERT MEDICATION, NOW) (21:15 01/01/2017 Priscilla Neumann) (21:21 Gena RGeena) ORDER SHEET NOTES: [Electronically signed by Destiny Rubi R.N. (22:33 01/01/2017)] [Electronically signed by Sreekanth Amor Dr. (09:17 01/02/2017)] [Electronically locked/signed by Destiny Rubi R.N. (22:33 01/01/2017)]
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
--- NOTE | 2017-01-01 20:56 | ED ORDER SUMMARY ---
..... Patient: HENRIK WINSTON OrderSheet [facility] VisitID: [id number] [place] [address] 36y, M Registration Date/Time: 01/01/2017 ORDER SHEET Weight: 95.2 kg (stated) Allergies: None GENERAL ORDERS: Zipper Slide Attacher (Continuous) (unstable GI bleed) (19:10 01/01/2017 Priscilla Neumann) (19:40 EHassan R.N.) - (two large bore IVs) (19:10 01/01/2017 Priscilla Neumann) (19:40 EHassan R.N.) CBC w Diff Urgent (19:10 01/01/2017 Priscilla Neumann) (Ack 19:14 Alek) (20:15 EHassan R.N.) CMP Urgent (19:01/01/2017 Priscilla Neumann) (Ack 19:14 Alek) (20:15 Gena R.N.) UA-Culture if indicated Urgent (19:10 01/01/2017 Priscilla Neumann) (Ack 19:14 Alek) PT with INR Urgent (19:10 01/01/2017 Priscilla Neumann) (Ack 19:14 Alek) (20:15 EHassan R.N.) PTT Urgent (19:01/01/2017 Priscilla Neumann) (Ack 19:14 Alek) (20:15 Gena R.N.) Lipase Urgent (19:01/01/2017 Priscilla Neumann) (Ack 19:14 Alek) (20:15 aMrlonn R.N.) Type & Screen Urgent (19:10 01/01/2017 Priscilla Neumann) (Ack 19:14 Alek) (20:15 Marlonn R.N.) Pulse oximeter (19:01/01/2017 Priscilla Neumann) (19:40 EHassan R.N.) EKG - ER Stat (19:01/01/2017 Priscilla Neumann) (Ack 19:14 Alek) (19:35 IJurca ER Tech1) Transfuse PRBCs (2 units) (20:55 01/01/2017 Priscilla Neumann) (Ack 20:58 IJhi ER Tech1) (22:32 Gena Kirby) Transfuse FFP (2 units) (20:55 01/01/2017 Priscilla Neumann) (Ack 20:58 Lashawn ER Tech1) (22:32 Gena Kirby) - (20:56 01/01/2017 Priscilla Neumann) (Ack 20:58 [facility] MEDICATION ORDERS: - (Protonix drip 8mg/hr start now) (19:11 01/01/2017 Priscilla Neumann) (20:34 Gena R.Manohar) IV FLUIDS: IV NS : initial bolus 2L, then none - for X1 (NOW) (19:10 01/01/2017 Priscilla Neumann) (20:23 Gena Kirby) IV Saline Lock (19:10 01/01/2017 Priscilla Neumann) (20:15 Gena R.N.) Protonix IVP 80mg 80 mg (Mix in NS 20ml over 4min) (19:11 01/01/2017 Priscilla Neumann) (20:24 Gena Kirby) Ceftriaxone IV 1 gm/50mL (NOW) (19:12 01/01/2017 Priscilla Neumann) (20:23 Gena Kirby) Zofran IV 4 mg (NOW) (20:47 01/01/2017 Gena Kirby verbal order read back to Priscilla Neumann) (20:55 Gena R.N.) Fentanyl IV 50 mcg (HIGH ALERT MEDICATION, NOW) (21:15 01/01/2017 Priscilla Neumann) (21:21 Gena RGeena) ORDER SHEET NOTES: [Electronically signed by Destiny Rubi R.N. (22:33 01/01/2017)] [Electronically signed by Sreekanth Amor Dr. (09:17 01/02/2017)] [Electronically locked/signed by Destiny Rubi R.N. (22:33 01/01/2017)]
[2017-01-01 22:22] VITALS: BP 100/59
--- NOTE | 2017-01-01 23:45 | Progress Note ---
Subjective General Admission History and Physical Examination Patient Name: Davide Kasper Admission Date: January 01, 2017 Primary Care Provider: [facility] Attending Physician: J Carlos Hobson M.D. Admitting Physician: J Carlos Hobson M.D. Code Status: Full Code Room: 302 SUBJECTIVE Historian: Patient Reliability: Poor Chief Complaint: Vomiting blood, melena History of Present Illness: The patient is a 36-year-old white male with a significant past medical history of alcohol abuse/dependence, recurrent upper GI bleed, cirrhosis, who presented to [facility] emergency department on the day of admission secondary to complaints of hematemesis and melena. [facility] ER evaluation was consistent with upper GI bleed with associated anemia and hypotension. Secondary to the above, the patient was admitted by J Carlos Hobson M.D. with consultation by Dr. Bala Chan (general surgery) for further evaluation and treatment. The history of present illness apparently began on the day of admission when the patient noted melanotic stools and subsequent hematemesis. He continued to drink heavily up until the day of his admission. His average consumption of alcohol is approximately one fifth of hard liquor per day. Secondary to melanotic stools with associated hematemesis the patient presented to [facility] emergency department for further evaluation and treatment. [facility] ER evaluation showed the patient to be tachycardic and hypotensive. He was anemic with an H&H of 8.6/25.6. Secondary to the above the patient was admitted with a diagnosis of upper GI bleed, alcohol abuse/dependence, cirrhosis, mild coagulopathy for further evaluation and treatment. PAST MEDICAL HISTORY Illnesses: 1. Alcohol abuse/dependence 2. Avascular necrosis hips 3. Erosive esophagitis with upper GI bleed 4. Anemia Allergies: 1. No Known Drug Allergies Medications: 1. Lisinopril 10 mg 1 by mouth daily 2. Lopressor 25 mg by mouth daily 3. Oxycodone 5 mg by mouth every 4 hours when necessary pain 4. Protonix 40 mg by mouth twice a day 5. vitamin 1 by mouth daily 6. Ferrous sulfate 325 mg by mouth twice a day Surgery: 1. None Injuries: 1. No significant Hospitalizations: 1. For above medical problems FAMILY HISTORY Parents: 1. Father, Hypertension, colon cancer 2. Mother, Hypertension SOCIAL HISTORY 1. Marital Status: Single 2. Orthodox: None 3. Education: High school 4. 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 Occupational health exposures: No significant HABITS 1. Tobacco: Previous smoker 2. Drugs: None 3. Alcohol: One fifth hard liquor per day HEALTH SUPERVISION Item/Test 1. Not reviewed IMMUNIZATIONS: 1. Pneumococcal: No previous 2. Influenza: Unknown 3. Tetanus: Unknown REVIEW OF SYSTEMS Remarkable for those things stated in the history of present illness and past medical history. Seventeen point review of system completed with the following notable findings: Unobtainable Physical Exam Vital Signs / I&Os Vital Signs Date Time Temp Pulse Resp B/P Pulse O2 O2 Flow FiO2 Ox Delivery Rate 01/01 2222 99.5 126 21 100/59 100 Nasal 2.0 Cannula General Appearance Cooperative, No acute distress, Slightly lethargic HEENT Atraumatic, PERRLA, EOMI, Moist mucous membranes Lungs Clear to auscultation, Normal air movement Neck Supple, No JVD Cardiovascular Normal S1 and S2, No murmurs, gallops, rubs, mild tachycardia Abdomen Normal bowel sounds, Soft, mild epigastric tenderness Extremities No cyanosis, No clubbing, No edema Neurological Cranial nerves intact, No lateralizing signs Psych/Mental Status Mental status normal, Confused, slightly lethargic LAB Results Laboratory Tests 01/01 Chemistry Plasma Sodium (136 - 145 mmol/L) 137 Plasma Potassium (3.5 - 5.1 mmol/L) 3.0 Plasma Chloride (98 - 107 mmol/L) 93 CO2 (Enzymatic) (21 - 32 mmol/L) 14 BUN (7 - 18 mg/dL) 22 Creatinine (0.6 - 1.3 mg/dL) 1.2 Est GFR ( Amer) (mL/min) >60 Est GFR (Non-Af Amer) (mL/min) >60 Glucose (70 - 110 mg/dL) 100 Plasma Calcium (8.5 - 10.1 mg/dL) 7.5 Total Bilirubin (0.0 - 1.0 mg/dL) 8.6 AST (15 - 37 U/L) 230 ALT (12 - 78 U/L) 67 Alkaline Phosphatase (46 - 116 U/L) 154 Total Protein (6.4 - 8.2 g/dL) 5.9 Albumin (3.3 - 5.0 g/dL) 2.0 Lipase (73 - 393 U/L) 114 Coagulation INR (0.8 - 1.2) 1.4 APTT (24 - 34 SECONDS) 33 Hematology WBC (4.5 - 11.5 K/uL) 15.4 RBC (4.50 - 5.90 M/uL) 2.47 Hgb (13.5 - 17.5 gm/dL) 7.3 8.6 Hct (41.0 - 53.0 %) 22.6 25.6 MCV (80 - 100 fL) 104 MCH (26 - 34 pg) 35 RDW (11.6 - 14.8 %) 19.6 Neut % (Auto) (50 - 75 %) 83.2 Lymph % (Auto) (25 - 40 %) 7.0 [place] % (Auto) (3 - 14 %) 9.8 Eos % (Auto) (0 - 4 %) 0 Baso % (Auto) (0 - 2 %) 0 Plt Count, EDTA (150 - 400 K/uL) 68 PUBS MCHC (31 - 37 g/dL) 34 Assessment and Plan Problem List 1. Upper GI bleeding Plan -The patient presents with findings of upper GI bleed -Patient recently presented with upper GI bleed secondary to erosive esophagitis -Patient has continued to drink alcohol status post last hospitalization -He has apparently been noncompliant with his current medical regimen -Serial hemoglobin/hematocrit -Transfuse 3 units packed RBCs -Transfuse 2 units fresh frozen plasma -Consider platelet transfusion -Protonix IV twice a day -Surgical consultation-Dr. Chan for upper endoscopy in a.m. 2. Alcoholic hepatitis Plan -Patient presents with findings suggestive of chronic hepatitis -Monitor transaminases -Encourage alcohol abstinence post discharge -Encourage enrollment in alcohol treatment post discharge 3. Acute blood loss anemia Plan -Patient presents with findings of acute blood loss anemia -Monitor serial H&H -Transfuse 3 units packed RBCs -Iron/multivitamin on discharge 4. Cirrhosis Plan -Patient with history of cirrhosis -Monitor liver function studies, signs of hepatic encephalopathy -Encourage alcohol abstinence post discharge 5. Alcoholism Plan -See above -Alcohol withdrawal protocol -Encourage alcohol abstinence post discharge in enrollment in alcohol treatment program 6. Coagulopathy Status Acute Onset Date Unknown Plan -Patient presents with findings of elevated INR -Vitamin K orally when taking well -Fresh frozen plasma 2 units IV -Monitor 7. Hypotension Plan -Patient presents with findings of hypotension most likely secondary to acute blood loss -Transfuse 3 units packed RBCs, 2 units fresh frozen plasma, vigorous IV fluid support -Monitor Current status: Critical, unstable Anticipated discharge date: Anticipated discharge in 3-4 days Anticipated discharge placement: Home Patient care time: Time spent in chart review, patient interview, physical exam, CPOE, and care documentation: 75 minutes Visit to patient today: 2 Complexity of care: High Initial evaluation: Emergency department Approximately 75 critical care minutes was devoted to chart review, patient interview, CPOE, physical examination, discussion with specialist and ER physicians, and direction of patient care. E&M Codes Critical Care: 30-74 min/[id number]
--- NOTE | 2017-01-01 23:45 | Progress Note ---
Subjective General Admission History and Physical Examination Patient Name: Davide Kasper Admission Date: January 01, 2017 Primary Care Provider: [facility] Attending Physician: J Carlos Hobson M.D. Admitting Physician: J Carlos Hobson M.D. Code Status: Full Code Room: 302 SUBJECTIVE Historian: Patient Reliability: Poor Chief Complaint: Vomiting blood, melena History of Present Illness: The patient is a 36-year-old white male with a significant past medical history of alcohol abuse/dependence, recurrent upper GI bleed, cirrhosis, who presented to [facility] emergency department on the day of admission secondary to complaints of hematemesis and melena. [facility] ER evaluation was consistent with upper GI bleed with associated anemia and hypotension. Secondary to the above, the patient was admitted by J Carlos Hobson M.D. with consultation by Dr. Bala Chan (general surgery) for further evaluation and treatment. The history of present illness apparently began on the day of admission when the patient noted melanotic stools and subsequent hematemesis. He continued to drink heavily up until the day of his admission. His average consumption of alcohol is approximately one fifth of hard liquor per day. Secondary to melanotic stools with associated hematemesis the patient presented to [facility] emergency department for further evaluation and treatment. [facility] ER evaluation showed the patient to be tachycardic and hypotensive. He was anemic with an H&H of 8.6/25.6. Secondary to the above the patient was admitted with a diagnosis of upper GI bleed, alcohol abuse/dependence, cirrhosis, mild coagulopathy for further evaluation and treatment. PAST MEDICAL HISTORY Illnesses: 1. Alcohol abuse/dependence 2. Avascular necrosis hips 3. Erosive esophagitis with upper GI bleed 4. Anemia Allergies: 1. No Known Drug Allergies Medications: 1. Lisinopril 10 mg 1 by mouth daily 2. Lopressor 25 mg by mouth daily 3. Oxycodone 5 mg by mouth every 4 hours when necessary pain 4. Protonix 40 mg by mouth twice a day 5. vitamin 1 by mouth daily 6. Ferrous sulfate 325 mg by mouth twice a day Surgery: 1. None Injuries: 1. No significant Hospitalizations: 1. For above medical problems FAMILY HISTORY Parents: 1. Father, Hypertension, colon cancer 2. Mother, Hypertension SOCIAL HISTORY 1. Marital Status: Single 2. Anabaptism: None 3. Education: High school 4. 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 Occupational health exposures: No significant HABITS 1. Tobacco: Previous smoker 2. Drugs: None 3. Alcohol: One fifth hard liquor per day HEALTH SUPERVISION Item/Test 1. Not reviewed IMMUNIZATIONS: 1. Pneumococcal: No previous 2. Influenza: Unknown 3. Tetanus: Unknown REVIEW OF SYSTEMS Remarkable for those things stated in the history of present illness and past medical history. Seventeen point review of system completed with the following notable findings: Unobtainable Physical Exam Vital Signs / I&Os Vital Signs Date Time Temp Pulse Resp B/P Pulse O2 O2 Flow FiO2 Ox Delivery Rate 01/01 2222 99.5 126 21 100/59 100 Nasal 2.0 Cannula General Appearance Cooperative, No acute distress, Slightly lethargic HEENT Atraumatic, PERRLA, EOMI, Moist mucous membranes Lungs Clear to auscultation, Normal air movement Neck Supple, No JVD Cardiovascular Normal S1 and S2, No murmurs, gallops, rubs, mild tachycardia Abdomen Normal bowel sounds, Soft, mild epigastric tenderness Extremities No cyanosis, No clubbing, No edema Neurological Cranial nerves intact, No lateralizing signs Psych/Mental Status Mental status normal, Confused, slightly lethargic LAB Results Laboratory Tests 01/01 Chemistry Plasma Sodium (136 - 145 mmol/L) 137 Plasma Potassium (3.5 - 5.1 mmol/L) 3.0 Plasma Chloride (98 - 107 mmol/L) 93 CO2 (Enzymatic) (21 - 32 mmol/L) 14 BUN (7 - 18 mg/dL) 22 Creatinine (0.6 - 1.3 mg/dL) 1.2 Est GFR ( Amer) (mL/min) >60 Est GFR (Non-Af Amer) (mL/min) >60 Glucose (70 - 110 mg/dL) 100 Plasma Calcium (8.5 - 10.1 mg/dL) 7.5 Total Bilirubin (0.0 - 1.0 mg/dL) 8.6 AST (15 - 37 U/L) 230 ALT (12 - 78 U/L) 67 Alkaline Phosphatase (46 - 116 U/L) 154 Total Protein (6.4 - 8.2 g/dL) 5.9 Albumin (3.3 - 5.0 g/dL) 2.0 Lipase (73 - 393 U/L) 114 Coagulation INR (0.8 - 1.2) 1.4 APTT (24 - 34 SECONDS) 33 Hematology WBC (4.5 - 11.5 K/uL) 15.4 RBC (4.50 - 5.90 M/uL) 2.47 Hgb (13.5 - 17.5 gm/dL) 7.3 8.6 Hct (41.0 - 53.0 %) 22.6 25.6 MCV (80 - 100 fL) 104 MCH (26 - 34 pg) 35 RDW (11.6 - 14.8 %) 19.6 Neut % (Auto) (50 - 75 %) 83.2 Lymph % (Auto) (25 - 40 %) 7.0 [place] % (Auto) (3 - 14 %) 9.8 Eos % (Auto) (0 - 4 %) 0 Baso % (Auto) (0 - 2 %) 0 Plt Count, EDTA (150 - 400 K/uL) 68 PUBS MCHC (31 - 37 g/dL) 34 Assessment and Plan Problem List 1. Upper GI bleeding Plan -The patient presents with findings of upper GI bleed -Patient recently presented with upper GI bleed secondary to erosive esophagitis -Patient has continued to drink alcohol status post last hospitalization -He has apparently been noncompliant with his current medical regimen -Serial hemoglobin/hematocrit -Transfuse 3 units packed RBCs -Transfuse 2 units fresh frozen plasma -Consider platelet transfusion -Protonix IV twice a day -Surgical consultation-Dr. Chan for upper endoscopy in a.m. 2. Alcoholic hepatitis Plan -Patient presents with findings suggestive of chronic hepatitis -Monitor transaminases -Encourage alcohol abstinence post discharge -Encourage enrollment in alcohol treatment post discharge 3. Acute blood loss anemia Plan -Patient presents with findings of acute blood loss anemia -Monitor serial H&H -Transfuse 3 units packed RBCs -Iron/multivitamin on discharge 4. Cirrhosis Plan -Patient with history of cirrhosis -Monitor liver function studies, signs of hepatic encephalopathy -Encourage alcohol abstinence post discharge 5. Alcoholism Plan -See above -Alcohol withdrawal protocol -Encourage alcohol abstinence post discharge in enrollment in alcohol treatment program 6. Coagulopathy Status Acute Onset Date Unknown Plan -Patient presents with findings of elevated INR -Vitamin K orally when taking well -Fresh frozen plasma 2 units IV -Monitor 7. Hypotension Plan -Patient presents with findings of hypotension most likely secondary to acute blood loss -Transfuse 3 units packed RBCs, 2 units fresh frozen plasma, vigorous IV fluid support -Monitor Current status: Critical, unstable Anticipated discharge date: Anticipated discharge in 3-4 days Anticipated discharge placement: Home Patient care time: Time spent in chart review, patient interview, physical exam, CPOE, and care documentation: 75 minutes Visit to patient today: 2 Complexity of care: High Initial evaluation: Emergency department Approximately 75 critical care minutes was devoted to chart review, patient interview, CPOE, physical examination, discussion with specialist and ER physicians, and direction of patient care. E&M Codes Critical Care: 30-74 min/[id number]
[2017-01-01] MEDS ORDERED: PERCOCET1 TA1 PO (23:54)
[2017-01-01 23:56] VITALS: BP 109/39
[2017-01-02] VITALS (30 sets, daily range): BP systolic 82–116; BP diastolic 40–66
--- NOTE | 2017-01-02 08:51 | CONSULTATION REPORT ---
DATE OF CONSULTATION: 01/02/2017 CHIEF COMPLAINT: Hematemesis. HISTORY OF PRESENT ILLNESS: The patient is a 36-year-old man who comes to the hospital with hematemesis and lightheadedness. This patient has had multiple previous upper GI hemorrhages and was seen on 11/27/2016 for the same problem. At that time, he was having vomiting of blood and coffee-ground material. He had 2 endoscopies over the previous several months. The patient has a history of alcoholism and has attempted to cut back in the past, but has continued to have ongoing drinking. Previous endoscopies in October showed esophagitis and gastritis, possibly alcohol-related. The endoscopy on 11/27/2016 showed erosive esophagitis and a hiatal hernia. On this occasion, he vomited copious blood initially was somewhat hypotensive, but has since stabilized. He has received, I believe, 3 units of blood transfusion so far. MEDICAL/SURGICAL HISTORY: Medical history of alcoholism and alcohol withdrawal. He has had bilateral avascular necrosis of the hips, previous urinary tract infection, dehydration, depression, hypomagnesemia, hypertension and hepatitis. PAST SURGICAL HISTORY: Knee surgery and multiple upper GI endoscopies. MEDICATIONS: 1. Lisinopril 20 mg daily. 2. Metoprolol 25 every day. 3. In the past oral Percocet. ALLERGIES: 1. NONE KNOWN TO MEDICATIONS. SOCIAL HISTORY: The patient has ongoing drinking problems as mentioned. 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 He does not smoke cigarettes. FAMILY HISTORY: Father with hypertension and colon cancer. REVIEW OF SYSTEMS: A multipoint review of systems was obtained on admission by Dr. Hobson. PHYSICAL EXAMINATION: VITAL SIGNS: Initial vital signs: Blood pressure 70/47, heart rate of 124, respirations 18, O2 saturation 100%. Vital signs this morning, blood pressure is 84/44, temperature 99.3, heart rate of 117, O2 saturation 100%. Height 5 feet 9 inches, weight 200 pounds. GENERAL: The patient is alert and cooperative. HEENT: His ears and nose demonstrate no obvious evidence of icterus. NECK: Without palpable masses or thyromegaly. HEART: Regular, without murmur or gallop. ABDOMEN: He has a protuberant and obese abdomen, but no specific sensation of ascites or hepatosplenomegaly. I did not see any caput medusae. EXTREMITIES: Symmetric. He seems to move without much restriction. LAB/IMAGING: Initial hemoglobin and hematocrit were 10.3 and 30.5. He has since received some transfusion. His original platelet count was 49,000 and platelets have been ordered as his INRs have been 1.4 and 1.3. Chemistry demonstrated a low potassium, low magnesium, bilirubin of 9.5, which in the dark room was not visualized on exam. IMPRESSION: 1. Recurrent gastrointestinal bleed. 2. Alcoholic liver disease. PLAN: I recommended an EGD later today. Hopefully, he will stop bleeding and can be managed with medical management as he has in the past. This patient clearly is headed for demise if he fails to control his drinking habits.
--- NOTE | 2017-01-02 09:17 | ED MAR SUMMARY ---
..... Medication Administration Record [facility] [address] [place] [address] Patient: HENRIK WINSTON Visit ID: [id number] 36y, M Weight: 95.2 kg Height/Length: 69 in BMI: 31 ALLERGIES: None Start 19:11 01/01/2017 Destiny Rubi R.N., Stop 20:21 01/01/2017 Destiny Rubi R.N. Medication Administered: IV NS (SALINE), Dose: IV Fluids over 1 hour(s), Rate: 1000 mL/hr, Dispensed: 1000 mL bag, Site: #1. Medication Ordered: IV NS : initial bolus 2L, then none - for X1 (NOW). Given 19:45 01/01/2017 Destiny Rubi R.N. Medication Administered: PROTONIX [IVP] (PANTOPRAZOLE SODIUM), Dose: 80 mg IVP over 5 minute(s), Site: #1 right hand. Medication Ordered: Protonix IVP 80mg 80 mg (Mix in NS 20ml over 4min). Start 19:58 01/01/2017 Destiny Rubi R.N., Stop 20:25 01/01/2017 Destiny Rubi R.N. Medication Administered: CEFTRIAXONE [IVPB], Dose: 1 gm IVPB over 30 hour(s), Rate: 150 mL/hr, Dispensed: 50 mL bag, Site: #2 left hand. Medication Ordered: Ceftriaxone IV 1 gm/50mL (NOW). Start 20:34 01/01/2017 Destiny Rubi R.N. Medication Administered: PROTONIX [IV DRIP], Dose: 80 mg Drip IV over 72 hour(s), Rate: 8 mg/hr, Dispensed: 100 mL bag, Site: #1 right hand. Medication Ordered: - (Protonix drip 8mg/hr start now). Given 20:55 01/01/2017 Destiny Rubi R.N. Medication Administered: ZOFRAN [IVP] (ONDANSETRON HCL), Dose: 4 mg IVP over 2 minute(s), Site: #1 right hand. Medication Ordered: Zofran IV 4 mg (NOW). Given 21:21 01/01/2017 Destiny Rubi R.N. Medication Administered: FENTANYL [IVP], Dose: 50 mcg IVP over 1 minute(s), Site: #2 left hand. Medication Ordered: Fentanyl IV 50 mcg (HIGH ALERT MEDICATION, NOW).
--- NOTE | 2017-01-02 09:17 | ED MAR SUMMARY ---
..... Medication Administration Record [facility] [address] [place] [address] Patient: HENRIK WINSTON Visit ID: [id number] 36y, M Weight: 95.2 kg Height/Length: 69 in BMI: 31 ALLERGIES: None Start 19:11 01/01/2017 Destiny Rubi R.N., Stop 20:21 01/01/2017 Destiny Rubi R.N. Medication Administered: IV NS (SALINE), Dose: IV Fluids over 1 hour(s), Rate: 1000 mL/hr, Dispensed: 1000 mL bag, Site: #1. Medication Ordered: IV NS : initial bolus 2L, then none - for X1 (NOW). Given 19:45 01/01/2017 Destiny Rubi R.N. Medication Administered: PROTONIX [IVP] (PANTOPRAZOLE SODIUM), Dose: 80 mg IVP over 5 minute(s), Site: #1 right hand. Medication Ordered: Protonix IVP 80mg 80 mg (Mix in NS 20ml over 4min). Start 19:58 01/01/2017 Destiny Rubi R.N., Stop 20:25 01/01/2017 Destiny Rubi R.N. Medication Administered: CEFTRIAXONE [IVPB], Dose: 1 gm IVPB over 30 hour(s), Rate: 150 mL/hr, Dispensed: 50 mL bag, Site: #2 left hand. Medication Ordered: Ceftriaxone IV 1 gm/50mL (NOW). Start 20:34 01/01/2017 Destiny Rubi R.N. Medication Administered: PROTONIX [IV DRIP], Dose: 80 mg Drip IV over 72 hour(s), Rate: 8 mg/hr, Dispensed: 100 mL bag, Site: #1 right hand. Medication Ordered: - (Protonix drip 8mg/hr start now). Given 20:55 01/01/2017 Destiny Rubi R.N. Medication Administered: ZOFRAN [IVP] (ONDANSETRON HCL), Dose: 4 mg IVP over 2 minute(s), Site: #1 right hand. Medication Ordered: Zofran IV 4 mg (NOW). Given 21:21 01/01/2017 Destiny Rubi R.N. Medication Administered: FENTANYL [IVP], Dose: 50 mcg IVP over 1 minute(s), Site: #2 left hand. Medication Ordered: Fentanyl IV 50 mcg (HIGH ALERT MEDICATION, NOW).
--- NOTE | 2017-01-02 09:17 | ED CLINICAL REPORT ---
Clinical Report - Physicians/Mid Levels [facility] [address] [place] [address] 01/01/2017 19:02 Patient: HENRIK WINSTON Time Seen: 1900. Arrived- By ambulance. Historian- patient. HISTORY OF PRESENT ILLNESS Chief Complaint: VOMITING BLOOD and DARK/TARRY STOOLS. This started past few days, has been severe and is still present. It was abrupt in onset and has been intermittent but is not gone now. The patient has had dark stools, nausea and vomiting. (hx of alcohol dependence. reports last drink today. has mild epigastric abdominal pain associated with it and generalized fatigue.). Similar symptoms previously: Many times. Recent medical care: Not recently seen/assessed. REVIEW OF SYSTEMS No difficulty breathing, chest pain or skin rash. All systems otherwise negative, except as recorded above. PAST HISTORY See nurses notes. Medications: Lisinopril Oral 20 mg, daily. Metoprolol Tartrate Oral 25 mg, daily. Percocet Oral. Allergies: None. SOCIAL HISTORY Never smoker. Alcohol use. No drug use. No recent travel. Is a local resident. ADDITIONAL NOTES The nursing notes have been reviewed. PHYSICAL EXAM Vital Signs: 01/01/2017 19:00 BP: 70/47. HR: 124. RR: 18. O2 saturation: 100%. Temp: 98.5 F. Pain level now: 7/10. Hypotensive. Oxygen saturation normal. Appearance: Alert. Oriented X3. Patient in severe distress. (ill appearing). Eyes: Pupils equal, round and reactive to light. Pale conjunctivae. Scleral icterus. ENT: Ears normal. Nose normal. Pharynx normal. Neck: Normal inspection. Neck supple. CVS: Tachycardia. Heart sounds normal. Pulses normal. Rhythm normal. Respiratory: No respiratory distress. Breath sounds normal. No rales, rhonchi or wheezes. Abdomen: Soft and nontender. (hyperactive bowel sounds). Back: Normal inspection. Rectal: (black colored stool. grossly positive for blood.). Skin: Skin warm and dry. Normal skin color. No rash. Normal skin turgor. Extremities: Extremities exhibit normal ROM. No lower extremity edema. Neuro: Oriented X 3. No motor deficit. No sensory deficit. LABS, X-RAYS, AND EKG EKG: No acute ischemia. Tachycardia. Sinus tachycardia. Normal P waves. Normal ANTHONY. Normal QRS complex. Normal axis. Normal ST and T waves, QT and QTc. The study has been interpreted contemporaneously. The study has been independently viewed by me. The EKG appears to be a good tracing. Laboratory Tests: UA-Culture if indicated: (JASS: 01/02/2017 02:25) ( MsgRcvd 01/02/2017 05:41) Final results Test Result Flag Units (Reference) URINE COLOR BROWN DIPSTICK RESULTS MAY BE FALSELY POSITIVE DUE TO SPECIMENBEING MARKEDLY ICTERIC. This is a corrected result 01/02/17 0541:URINE COLOR previously reported as: BROWN URINE APPEARANCE CLEAR URINE GLUCOSE TRACE (NEGATIVE) URINE GLUCOSE CLINITEST NEGATIVE % (NEGATIVE) URINE BILIRUBIN 3+ (NEGATIVE) URINE BILIRUBIN ICTOTEST POSITIVE (NEGATIVE) URINE KETONE 1+ (NEGATIVE) URINE SPECIFIC GRAVITY 1.020 (1.010-1.030) URINE PH 6.5 (5.0-8.0) URINE PROTEIN 1+ (NEGATIVE) URINE UROBILINOGEN 4.0 EU/dL (0.2-1.0) The urobilinogen reagent area may react with interferingsubstances known to react with Jerzy's reagent such asp-aminosalicylic acid and sulfonamides. Atypical colorreactions may be obtained in the presence of highconcentrations of p-aminobenzoic acid. The absence ofurobilinogen cannot be determined with this test. URINE NITRITE POSITIVE (NEGATIVE) URINE BLOOD NEGATIVE (NEGATIVE) URINE LEUK ESTERASE TRACE (NEGATIVE) URINE RBC 0-1 rbc/hpf (0-1) URINE WBC 0-1 wbc/hpf (0-1) URINE EPITHELIAL CELLS 0-1 EPI/hpf (0-5) URINE BACTERIA TRACE (<1+) (NONE SEEN) URINE COMMENT CULTURE INDICATED URINE CULTURES ARE SET-UP BASED ON THE FOLLOWING CRITERIA:POSITIVE NITRITEPOSITIVE LEUKOCYTE ESTERASEGREATER THAN 10 WHITE BLOOD CELLSMODERATE (2+) OR GREATER BACTERIA CBC w Manual Diff: (JASS: 01/02/2017 03:48) ( [facility] 01/02/2017 05:49) Final results Test Result Flag Units (Reference) WHITE BLOOD COUNT NO REFLEX 12.0 H K/uL (4.5-11.5) RED BLOOD COUNT 3.05 L M/uL (4.50-5.90) HEMOGLOBIN 10.3 L gm/dL (13.5-17.5) HEMATOCRIT 30.5 L % (41.0-53.0) MEAN CELL VOLUME 100 fL (80-100) MEAN CORPUSCULAR HGB 34 pg (26-34) MEAN CORPUSCULAR HGB CONC 34 g/dL (31-37) RED CELL DISTRIBUTION WIDTH 21.2 H % (11.6-14.8) PLATELET COUNT 49 L K/uL (150-400) POLY % 49 L % (50-75) BAND % 36 H % (0-8) LYMPH 13 L % (25-40) MONO 1 L % (3-14) EOSINOPHIL % 1 % (0-4) BASOPHIL % 0 % (0-2) METAMYELOCYTE % 0 % (0-1) MYELOCYTE 0 % (0-1) OTHER CELL TYPE 0 HYPOCHROMIA 2+ ANISOCYTOSIS 3+ TARGET CELLS 2+ PT with INR: (JASS: 01/02/2017 03:48) ( [facility] 01/02/2017 05:11) Final results Test Result Flag Units (Reference) INR 1.3 H (0.8-1.2) Low Intensity Therapy: INR 1.5-2.0 PT range 18.5-23.1Mod.Intensity Therapy: INR 2.0-3.0 PT range 23.1-31.5High Intensity Therapy: INR 2.5-3.5 PT range 27.4-35.5High Intensity Therapy 2: INR 3.0-4.0 PT range 31.5-39.3 APTT 38 H SECONDS (24-34) BMP: (JASS: 01/02/2017 02:15) ( MsgRcvd 01/02/2017 02:47) Final results Test Result Flag Units (Reference) GLUCOSE 83 mg/dL (70-110) BUN 23 H mg/dL (7-18) CREATININE 1.4 H mg/dL (0.6-1.3) Estimated GFR >60 mL/min Estimated GFR- >60 mL/min Note: Persistent reduction over 3 months in eGFR<60 mL/min/1.73 m2 defines CKD. Patients with eGFR values>=60 mL/min/1.73 m2 may also have CKD if evidence ofpersistent proteinuria. Additional information may be foundat [email or web address]. SODIUM 139 mmol/L (136-145) POTASSIUM 3.3 L mmol/L (3.5-5.1) CHLORIDE 98 mmol/L (98-107) CARBON DIOXIDE 17 L mmol/L (21-32) CALCIUM 6.7 L mg/dL (8.5-10.1) CMP: (JASS: 01/02/2017 03:48) ( MsgRcvd 01/02/2017 05:14) Final results Test Result Flag Units (Reference) GLUCOSE 72 mg/dL (70-110) BUN 23 H mg/dL (7-18) CREATININE 1.4 H mg/dL (0.6-1.3) Estimated GFR >60 mL/min Estimated GFR- >60 mL/min Note: Persistent reduction over 3 months in eGFR<60 mL/min/1.73 m2 defines CKD. Patients with eGFR values>=60 mL/min/1.73 m2 may also have CKD if evidence ofpersistent proteinuria. Additional information may be foundat [email or web address]. SODIUM 139 mmol/L (136-145) POTASSIUM 2.9 *L mmol/L (3.5-5.1) CRITICAL RESULTS CALLEDCalled to NALLELY TREVIZO RN 01/02/17 0512Were 2 patient identifiers used? YWas the result read back? Y CHLORIDE 99 mmol/L (98-107) CARBON DIOXIDE 18 L mmol/L (21-32) CALCIUM 6.9 L mg/dL (8.5-10.1) TOTAL PROTEIN 5.5 L g/dL (6.4-8.2) ALBUMIN 2.1 L g/dL (3.3-5.0) BILIRUBIN, TOTAL 9.5 H mg/dL (0.0-1.0) ALKALINE PHOSPHATASE 129 H U/L (46-116) AST (SGOT) 207 H U/L (15-37) ALT (SGPT) 61 U/L (12-78) MAGNESIUM 0.5 *L mg/dL (1.8-2.4) CRITICAL RESULTS CALLEDCalled to NALLELY TREVIZO RN 01/02/17 0513Were 2 patient identifiers used? YWas the result read back? Y Hgb/Hct: (JASS: 01/01/2017 22:55) ( [facility] 01/01/2017 23:07) Final results Test Result Flag Units (Reference) HEMOGLOBIN 7.3 L gm/dL (13.5-17.5) HEMATOCRIT 22.6 L % (41.0-53.0) CBC w Diff: (JASS: 01/01/2017 18:50) ( [facility] 01/01/2017 19:53) Final results Test Result Flag Units (Reference) WHITE BLOOD COUNT 15.4 H K/uL (4.5-11.5) RED BLOOD COUNT 2.47 L M/uL (4.50-5.90) HEMOGLOBIN 8.6 L gm/dL (13.5-17.5) HEMATOCRIT 25.6 L % (41.0-53.0) MEAN CELL VOLUME 104 H fL (80-100) MEAN CORPUSCULAR HGB 35 H pg (26-34) MEAN CORPUSCULAR HGB CONC 34 g/dL (31-37) RED CELL DISTRIBUTION WIDTH 19.6 H % (11.6-14.8) PLATELET COUNT 68 L K/uL (150-400) NEUTROPHIL % 83.2 H % (50-75) LYMPH % 7.0 L % (25-40) MONO % 9.8 % (3-14) EOSINOPHIL % 0 % (0-4) BASOPHIL % 0 % (0-2) PT with INR: (JASS: 01/01/2017 19:10) ( MsgRcvd 01/01/2017 20:02) Final results Test Result Flag Units (Reference) INR 1.4 H (0.8-1.2) Low Intensity Therapy: INR 1.5-2.0 PT range 18.5-23.1Mod.Intensity Therapy: INR 2.0-3.0 PT range 23.1-31.5High Intensity Therapy: INR 2.5-3.5 PT range 27.4-35.5High Intensity Therapy 2: INR 3.0-4.0 PT range 31.5-39.3 APTT 33 SECONDS (24-34) CMP: (JASS: 01/01/2017 19:15) ( MsgRcvd 01/01/2017 19:57) Final results Test Result Flag Units (Reference) GLUCOSE 100 mg/dL (70-110) BUN 22 H mg/dL (7-18) CREATININE 1.2 mg/dL (0.6-1.3) Estimated GFR >60 mL/min Estimated GFR- >60 mL/min Note: Persistent reduction over 3 months in eGFR<60 mL/min/1.73 m2 defines CKD. Patients with eGFR values>=60 mL/min/1.73 m2 may also have CKD if evidence ofpersistent proteinuria. Additional information may be foundat [email or web address]. SODIUM 137 mmol/L (136-145) POTASSIUM 3.0 L mmol/L (3.5-5.1) CHLORIDE 93 L mmol/L (98-107) CARBON DIOXIDE 14 L mmol/L (21-32) CALCIUM 7.5 L mg/dL (8.5-10.1) TOTAL PROTEIN 5.9 L g/dL (6.4-8.2) ALBUMIN 2.0 L g/dL (3.3-5.0) BILIRUBIN, TOTAL 8.6 H mg/dL (0.0-1.0) ALKALINE PHOSPHATASE 154 H U/L (46-116) AST (SGOT) 230 H U/L (15-37) ALT (SGPT) 67 U/L (12-78) LIPASE 114 U/L (73-393) ABG: (JASS: 01/01/2017 23:41) ( MsgRcvd 01/02/2017 01:25) IP Test Result Flag Units (Reference) FIO2 28 % (20-101) ABG MODE OF DELIVERY NC MODIFIED SREEDHAR TEST POSITIVE? YES LITERS PER MIN. 2 L/MIN (0-20) ABG PATIENT RESP RATE 18 /MIN ARTERIAL BLOOD GAS SITE RR ARTERIAL BLOOD GAS pH 7.47 H (7.35-7.45) ABG PCO2 20.2 L mmHg (35-45) ABG PO2 142.0 H mmHg (80.0-100.0) ABG BASE EXCESS 8.3 *H mmol/L (-6.0--6.0) ABG HCO3 14.8 *L mmol/L (20.0-26.0) ABG TCO2 15.4 L mmol/L (24.0-30.0) ABG BnZnA7c 32.7 H mmHg (7.0-14.0) *NOTE: Normal rangeis based on aFIO2 of 21% ABG SAT O2 100.0 % (95.1-100.0) ABG TOTAL HEMOGLOBIN 8.4 L g/dL (14.0-18.0) ABG CARBOXYHEMOGLOBIN 1.1 % (0.5-1.5) ABG RHEMOGLOBIN 0.2 % Blood Product: FFP: (JASS: 01/01/2017 19:30) ( MsgRcvd 01/02/2017 01:53) IP Test Result Flag Units (Reference) PATIENT BLOOD TYPE O Positive Above is a corrected result. Previously reported on ( MsgRcvd 01/01/2017 20:26) as: PATIENT BLOOD TYPE O Positive ANTIBODY SCREEN NEGATIVE Above is a corrected result. Previously reported on ( MsgRcvd 01/01/2017 20:26) as: ANTIBODY SCREEN NEGATIVE LEUKOREDUCED PACKED CELLS [id number] OP PC XM COMPATIBLE [id number] OP PC XM COMPATIBLE [id number] OP PC TRANSFUSED 01/02/17113 [id number] OP PC TRANSFUSED 01/01/172327 [id number] OP PC TRANSFUSED 01/01/172327 FRESH FROZEN PLASMA [id number] OP FFP TRANSFUSED 01/02/17115 [id number] OP FFP TRANSFUSED 01/02/17115 . PROGRESS AND PROCEDURES Course of Care: The patient is a 36 yo male with history of GI bleed and alcoholism presenting for evaluation of GI bleed. Patient hypotensive. Aggressive fluid bolus with two large bore IVs. Patient will be monitored closely. Protonix and cetriaxone ordered. Will anticipate admit and surgery consult once labs are back. Fluids were given. BP increased significantly. patients tachycardia still present. Consulted hospitalist and surgery. Patient typed and crossed for 2 units of PRBCs. INR elevated. FFP also given. Informed verbal consent obtained due to urgency of the patients condition. No further recommendations. Patient to be admitted. Tachycardia improved slightly while here. Patient slightly more stable with vital signs but will need to be in the ICU for close monitoring. Patient at great risk for acute decompensation. Prior to patient's departure from the ED he was noted to be feeling better. No other abnormalities noted on patient's work up. Unable to obtain UA however this should not delay transport to ICU. Do not feel UA would pipe changer at this time either. Patient updated on work up here in the emergency department and need to admit to the ICU. Patient was also counseled on his drinking and the negative effects it has had on his health. Urged patient to sober up as his alcoholism is putting his life at significant risk. Patient expressed understanding and said this is a "wake up call.". Critical care performed (45 minutes). Time is exclusive of separately billable procedures. Time includes: direct patient care, patient reassessment, coordination of patient care, interpretation of data (laboratory data), review of patient's medical records, medical consultation and documentation of patient care. Consult obtained from surgery. Case discussed. Disposition: Admitted to the Critical Care Unit. Condition: critical. (Electronically signed by Sreekanth Amor Dr. 01/02/2017 9:17) Addenda for HENRIK WINSTON VisitID: [id number] Date: 01/01/2017 01/01/2017 22:38 Last disposition under Discharge was done under Destiny Rubi instead of Yaima Monge. VSS and pt transferred and report. (Electronically signed by Destiny Rubi R.N. - 01/01/2017 22:38)
--- NOTE | 2017-01-02 09:17 | ED MED RECONCILIATION SUMMARY ---
Patient: HENRIK WINSTON Medication Reconciliation Report [facility] VisitID: [id number] [address] [place] [address] 36y, M Registration Date/Time: 01/01/2017 Weight: 95.2 kg Height/Length: 69 in. BMI: 31.0 ALLERGIES: None The patient's Home Medications are listed below: THE FOLLOWING MEDICATIONS NEED TO BE RECONCILED: Lisinopril Oral 20 mg, daily Metoprolol Tartrate Oral 25 mg, daily Percocet Oral The source(s) of the original Home Medication information: patient The following Medications were given to the patient in the Emergency Department: IV NS IV Fluids bolus 0, then 1000 mL/hr, administered: 01/01/2017 7:11:00 PM Ceftriaxone [IVPB] IVPB bolus 0, then 1 gm 150 mL/hr, administered: 01/01/2017 7:58:00 PM PROTONIX [IVP] IVP 80 mg, administered: 01/01/2017 7:45:00 PM Protonix [IV Drip] Drip IV bolus 0, then 80 mg 8 mg/hr, administered: 01/01/2017 8:34:00 PM Zofran [IVP] IVP 4 mg, administered: 01/01/2017 8:55:00 PM Fentanyl [IVP] IVP 50 mcg, administered: 01/01/2017 9:21:00 PM The following Medications were prescribed to the patient: None.
--- NOTE | 2017-01-02 09:17 | ED MED RECONCILIATION SUMMARY ---
Patient: HENRIK WINSTON Medication Reconciliation Report [facility] VisitID: [id number] [address] [place] [address] 36y, M Registration Date/Time: 01/01/2017 Weight: 95.2 kg Height/Length: 69 in. BMI: 31.0 ALLERGIES: None The patient's Home Medications are listed below: THE FOLLOWING MEDICATIONS NEED TO BE RECONCILED: Lisinopril Oral 20 mg, daily Metoprolol Tartrate Oral 25 mg, daily Percocet Oral The source(s) of the original Home Medication information: patient The following Medications were given to the patient in the Emergency Department: IV NS IV Fluids bolus 0, then 1000 mL/hr, administered: 01/01/2017 7:11:00 PM Ceftriaxone [IVPB] IVPB bolus 0, then 1 gm 150 mL/hr, administered: 01/01/2017 7:58:00 PM PROTONIX [IVP] IVP 80 mg, administered: 01/01/2017 7:45:00 PM Protonix [IV Drip] Drip IV bolus 0, then 80 mg 8 mg/hr, administered: 01/01/2017 8:34:00 PM Zofran [IVP] IVP 4 mg, administered: 01/01/2017 8:55:00 PM Fentanyl [IVP] IVP 50 mcg, administered: 01/01/2017 9:21:00 PM The following Medications were prescribed to the patient: None.
--- NOTE | 2017-01-02 09:17 | ED CLINICAL REPORT ---
Clinical Report - Physicians/Mid Levels [facility] [address] [place] [address] 01/01/2017 19:02 Patient: HENRIK WINSTON Time Seen: 1900. Arrived- By ambulance. Historian- patient. HISTORY OF PRESENT ILLNESS Chief Complaint: VOMITING BLOOD and DARK/TARRY STOOLS. This started past few days, has been severe and is still present. It was abrupt in onset and has been intermittent but is not gone now. The patient has had dark stools, nausea and vomiting. (hx of alcohol dependence. reports last drink today. has mild epigastric abdominal pain associated with it and generalized fatigue.). Similar symptoms previously: Many times. Recent medical care: Not recently seen/assessed. REVIEW OF SYSTEMS No difficulty breathing, chest pain or skin rash. All systems otherwise negative, except as recorded above. PAST HISTORY See nurses notes. Medications: Lisinopril Oral 20 mg, daily. Metoprolol Tartrate Oral 25 mg, daily. Percocet Oral. Allergies: None. SOCIAL HISTORY Never smoker. Alcohol use. No drug use. No recent travel. Is a local resident. ADDITIONAL NOTES The nursing notes have been reviewed. PHYSICAL EXAM Vital Signs: 01/01/2017 19:00 BP: 70/47. HR: 124. RR: 18. O2 saturation: 100%. Temp: 98.5 F. Pain level now: 7/10. Hypotensive. Oxygen saturation normal. Appearance: Alert. Oriented X3. Patient in severe distress. (ill appearing). Eyes: Pupils equal, round and reactive to light. Pale conjunctivae. Scleral icterus. ENT: Ears normal. Nose normal. Pharynx normal. Neck: Normal inspection. Neck supple. CVS: Tachycardia. Heart sounds normal. Pulses normal. Rhythm normal. Respiratory: No respiratory distress. Breath sounds normal. No rales, rhonchi or wheezes. Abdomen: Soft and nontender. (hyperactive bowel sounds). Back: Normal inspection. Rectal: (black colored stool. grossly positive for blood.). Skin: Skin warm and dry. Normal skin color. No rash. Normal skin turgor. Extremities: Extremities exhibit normal ROM. No lower extremity edema. Neuro: Oriented X 3. No motor deficit. No sensory deficit. LABS, X-RAYS, AND EKG EKG: No acute ischemia. Tachycardia. Sinus tachycardia. Normal P waves. Normal ANTHONY. Normal QRS complex. Normal axis. Normal ST and T waves, QT and QTc. The study has been interpreted contemporaneously. The study has been independently viewed by me. The EKG appears to be a good tracing. Laboratory Tests: UA-Culture if indicated: (JASS: 01/02/2017 02:25) ( MsgRcvd 01/02/2017 05:41) Final results Test Result Flag Units (Reference) URINE COLOR BROWN DIPSTICK RESULTS MAY BE FALSELY POSITIVE DUE TO SPECIMENBEING MARKEDLY ICTERIC. This is a corrected result 01/02/17 0541:URINE COLOR previously reported as: BROWN URINE APPEARANCE CLEAR URINE GLUCOSE TRACE (NEGATIVE) URINE GLUCOSE CLINITEST NEGATIVE % (NEGATIVE) URINE BILIRUBIN 3+ (NEGATIVE) URINE BILIRUBIN ICTOTEST POSITIVE (NEGATIVE) URINE KETONE 1+ (NEGATIVE) URINE SPECIFIC GRAVITY 1.020 (1.010-1.030) URINE PH 6.5 (5.0-8.0) URINE PROTEIN 1+ (NEGATIVE) URINE UROBILINOGEN 4.0 EU/dL (0.2-1.0) The urobilinogen reagent area may react with interferingsubstances known to react with Jerzy's reagent such asp-aminosalicylic acid and sulfonamides. Atypical colorreactions may be obtained in the presence of highconcentrations of p-aminobenzoic acid. The absence ofurobilinogen cannot be determined with this test. URINE NITRITE POSITIVE (NEGATIVE) URINE BLOOD NEGATIVE (NEGATIVE) URINE LEUK ESTERASE TRACE (NEGATIVE) URINE RBC 0-1 rbc/hpf (0-1) URINE WBC 0-1 wbc/hpf (0-1) URINE EPITHELIAL CELLS 0-1 EPI/hpf (0-5) URINE BACTERIA TRACE (<1+) (NONE SEEN) URINE COMMENT CULTURE INDICATED URINE CULTURES ARE SET-UP BASED ON THE FOLLOWING CRITERIA:POSITIVE NITRITEPOSITIVE LEUKOCYTE ESTERASEGREATER THAN 10 WHITE BLOOD CELLSMODERATE (2+) OR GREATER BACTERIA CBC w Manual Diff: (JASS: 01/02/2017 03:48) ( [facility] 01/02/2017 05:49) Final results Test Result Flag Units (Reference) WHITE BLOOD COUNT NO REFLEX 12.0 H K/uL (4.5-11.5) RED BLOOD COUNT 3.05 L M/uL (4.50-5.90) HEMOGLOBIN 10.3 L gm/dL (13.5-17.5) HEMATOCRIT 30.5 L % (41.0-53.0) MEAN CELL VOLUME 100 fL (80-100) MEAN CORPUSCULAR HGB 34 pg (26-34) MEAN CORPUSCULAR HGB CONC 34 g/dL (31-37) RED CELL DISTRIBUTION WIDTH 21.2 H % (11.6-14.8) PLATELET COUNT 49 L K/uL (150-400) POLY % 49 L % (50-75) BAND % 36 H % (0-8) LYMPH 13 L % (25-40) MONO 1 L % (3-14) EOSINOPHIL % 1 % (0-4) BASOPHIL % 0 % (0-2) METAMYELOCYTE % 0 % (0-1) MYELOCYTE 0 % (0-1) OTHER CELL TYPE 0 HYPOCHROMIA 2+ ANISOCYTOSIS 3+ TARGET CELLS 2+ PT with INR: (JASS: 01/02/2017 03:48) ( [facility] 01/02/2017 05:11) Final results Test Result Flag Units (Reference) INR 1.3 H (0.8-1.2) Low Intensity Therapy: INR 1.5-2.0 PT range 18.5-23.1Mod.Intensity Therapy: INR 2.0-3.0 PT range 23.1-31.5High Intensity Therapy: INR 2.5-3.5 PT range 27.4-35.5High Intensity Therapy 2: INR 3.0-4.0 PT range 31.5-39.3 APTT 38 H SECONDS (24-34) BMP: (JASS: 01/02/2017 02:15) ( MsgRcvd 01/02/2017 02:47) Final results Test Result Flag Units (Reference) GLUCOSE 83 mg/dL (70-110) BUN 23 H mg/dL (7-18) CREATININE 1.4 H mg/dL (0.6-1.3) Estimated GFR >60 mL/min Estimated GFR- >60 mL/min Note: Persistent reduction over 3 months in eGFR<60 mL/min/1.73 m2 defines CKD. Patients with eGFR values>=60 mL/min/1.73 m2 may also have CKD if evidence ofpersistent proteinuria. Additional information may be foundat [email or web address]. SODIUM 139 mmol/L (136-145) POTASSIUM 3.3 L mmol/L (3.5-5.1) CHLORIDE 98 mmol/L (98-107) CARBON DIOXIDE 17 L mmol/L (21-32) CALCIUM 6.7 L mg/dL (8.5-10.1) CMP: (JASS: 01/02/2017 03:48) ( MsgRcvd 01/02/2017 05:14) Final results Test Result Flag Units (Reference) GLUCOSE 72 mg/dL (70-110) BUN 23 H mg/dL (7-18) CREATININE 1.4 H mg/dL (0.6-1.3) Estimated GFR >60 mL/min Estimated GFR- >60 mL/min Note: Persistent reduction over 3 months in eGFR<60 mL/min/1.73 m2 defines CKD. Patients with eGFR values>=60 mL/min/1.73 m2 may also have CKD if evidence ofpersistent proteinuria. Additional information may be foundat [email or web address]. SODIUM 139 mmol/L (136-145) POTASSIUM 2.9 *L mmol/L (3.5-5.1) CRITICAL RESULTS CALLEDCalled to NALLELY TREVIZO RN 01/02/17 0512Were 2 patient identifiers used? YWas the result read back? Y CHLORIDE 99 mmol/L (98-107) CARBON DIOXIDE 18 L mmol/L (21-32) CALCIUM 6.9 L mg/dL (8.5-10.1) TOTAL PROTEIN 5.5 L g/dL (6.4-8.2) ALBUMIN 2.1 L g/dL (3.3-5.0) BILIRUBIN, TOTAL 9.5 H mg/dL (0.0-1.0) ALKALINE PHOSPHATASE 129 H U/L (46-116) AST (SGOT) 207 H U/L (15-37) ALT (SGPT) 61 U/L (12-78) MAGNESIUM 0.5 *L mg/dL (1.8-2.4) CRITICAL RESULTS CALLEDCalled to NALLELY TREVIZO RN 01/02/17 0513Were 2 patient identifiers used? YWas the result read back? Y Hgb/Hct: (JASS: 01/01/2017 22:55) ( [facility] 01/01/2017 23:07) Final results Test Result Flag Units (Reference) HEMOGLOBIN 7.3 L gm/dL (13.5-17.5) HEMATOCRIT 22.6 L % (41.0-53.0) CBC w Diff: (JASS: 01/01/2017 18:50) ( [facility] 01/01/2017 19:53) Final results Test Result Flag Units (Reference) WHITE BLOOD COUNT 15.4 H K/uL (4.5-11.5) RED BLOOD COUNT 2.47 L M/uL (4.50-5.90) HEMOGLOBIN 8.6 L gm/dL (13.5-17.5) HEMATOCRIT 25.6 L % (41.0-53.0) MEAN CELL VOLUME 104 H fL (80-100) MEAN CORPUSCULAR HGB 35 H pg (26-34) MEAN CORPUSCULAR HGB CONC 34 g/dL (31-37) RED CELL DISTRIBUTION WIDTH 19.6 H % (11.6-14.8) PLATELET COUNT 68 L K/uL (150-400) NEUTROPHIL % 83.2 H % (50-75) LYMPH % 7.0 L % (25-40) MONO % 9.8 % (3-14) EOSINOPHIL % 0 % (0-4) BASOPHIL % 0 % (0-2) PT with INR: (JASS: 01/01/2017 19:10) ( MsgRcvd 01/01/2017 20:02) Final results Test Result Flag Units (Reference) INR 1.4 H (0.8-1.2) Low Intensity Therapy: INR 1.5-2.0 PT range 18.5-23.1Mod.Intensity Therapy: INR 2.0-3.0 PT range 23.1-31.5High Intensity Therapy: INR 2.5-3.5 PT range 27.4-35.5High Intensity Therapy 2: INR 3.0-4.0 PT range 31.5-39.3 APTT 33 SECONDS (24-34) CMP: (JASS: 01/01/2017 19:15) ( MsgRcvd 01/01/2017 19:57) Final results Test Result Flag Units (Reference) GLUCOSE 100 mg/dL (70-110) BUN 22 H mg/dL (7-18) CREATININE 1.2 mg/dL (0.6-1.3) Estimated GFR >60 mL/min Estimated GFR- >60 mL/min Note: Persistent reduction over 3 months in eGFR<60 mL/min/1.73 m2 defines CKD. Patients with eGFR values>=60 mL/min/1.73 m2 may also have CKD if evidence ofpersistent proteinuria. Additional information may be foundat [email or web address]. SODIUM 137 mmol/L (136-145) POTASSIUM 3.0 L mmol/L (3.5-5.1) CHLORIDE 93 L mmol/L (98-107) CARBON DIOXIDE 14 L mmol/L (21-32) CALCIUM 7.5 L mg/dL (8.5-10.1) TOTAL PROTEIN 5.9 L g/dL (6.4-8.2) ALBUMIN 2.0 L g/dL (3.3-5.0) BILIRUBIN, TOTAL 8.6 H mg/dL (0.0-1.0) ALKALINE PHOSPHATASE 154 H U/L (46-116) AST (SGOT) 230 H U/L (15-37) ALT (SGPT) 67 U/L (12-78) LIPASE 114 U/L (73-393) ABG: (JASS: 01/01/2017 23:41) ( MsgRcvd 01/02/2017 01:25) IP Test Result Flag Units (Reference) FIO2 28 % (20-101) ABG MODE OF DELIVERY NC MODIFIED SREEDHAR TEST POSITIVE? YES LITERS PER MIN. 2 L/MIN (0-20) ABG PATIENT RESP RATE 18 /MIN ARTERIAL BLOOD GAS SITE RR ARTERIAL BLOOD GAS pH 7.47 H (7.35-7.45) ABG PCO2 20.2 L mmHg (35-45) ABG PO2 142.0 H mmHg (80.0-100.0) ABG BASE EXCESS 8.3 *H mmol/L (-6.0--6.0) ABG HCO3 14.8 *L mmol/L (20.0-26.0) ABG TCO2 15.4 L mmol/L (24.0-30.0) ABG [id number] 32.7 H mmHg (7.0-14.0) *NOTE: Normal rangeis based on aFIO2 of 21% ABG SAT O2 100.0 % (95.1-100.0) ABG TOTAL HEMOGLOBIN 8.4 L g/dL (14.0-18.0) ABG CARBOXYHEMOGLOBIN 1.1 % (0.5-1.5) ABG RHEMOGLOBIN 0.2 % Blood Product: FFP: (JASS: 01/01/2017 19:30) ( MsgRcvd 01/02/2017 01:53) IP Test Result Flag Units (Reference) PATIENT BLOOD TYPE O Positive Above is a corrected result. Previously reported on ( MsgRcvd 01/01/2017 20:26) as: PATIENT BLOOD TYPE O Positive ANTIBODY SCREEN NEGATIVE Above is a corrected result. Previously reported on ( MsgRcvd 01/01/2017 20:26) as: ANTIBODY SCREEN NEGATIVE LEUKOREDUCED PACKED CELLS [id number] OP PC XM COMPATIBLE [id number] OP PC XM COMPATIBLE [id number] OP PC TRANSFUSED 01/02/17113 [id number] OP PC TRANSFUSED 01/01/172327 [id number] OP PC TRANSFUSED 01/01/172327 FRESH FROZEN PLASMA [id number] OP FFP TRANSFUSED 01/02/17115 [id number] OP FFP TRANSFUSED 01/02/17115 . PROGRESS AND PROCEDURES Course of Care: The patient is a 36 yo male with history of GI bleed and alcoholism presenting for evaluation of GI bleed. Patient hypotensive. Aggressive fluid bolus with two large bore IVs. Patient will be monitored closely. Protonix and cetriaxone ordered. Will anticipate admit and surgery consult once labs are back. Fluids were given. BP increased significantly. patients tachycardia still present. Consulted hospitalist and surgery. Patient typed and crossed for 2 units of PRBCs. INR elevated. FFP also given. Informed verbal consent obtained due to urgency of the patients condition. No further recommendations. Patient to be admitted. Tachycardia improved slightly while here. Patient slightly more stable with vital signs but will need to be in the ICU for close monitoring. Patient at great risk for acute decompensation. Prior to patient's departure from the ED he was noted to be feeling better. No other abnormalities noted on patient's work up. Unable to obtain UA however this should not delay transport to ICU. Do not feel UA would change control specialist at this time either. Patient updated on work up here in the emergency department and need to admit to the ICU. Patient was also counseled on his drinking and the negative effects it has had on his health. Urged patient to sober up as his alcoholism is putting his life at significant risk. Patient expressed understanding and said this is a "wake up call.". Critical care performed (45 minutes). Time is exclusive of separately billable procedures. Time includes: direct patient care, patient reassessment, coordination of patient care, interpretation of data (laboratory data), review of patient's medical records, medical consultation and documentation of patient care. Consult obtained from surgery. Case discussed. Disposition: Admitted to the Critical Care Unit. Condition: critical. (Electronically signed by Sreekanth Amor Dr. 01/02/2017 9:17) Addenda for HENRIK WINSTON VisitID: [id number] Date: 01/01/2017 01/01/2017 22:38 Last disposition under Discharge was done under Destiny Rubi instead of Yaima Monge. VSS and pt transferred and report. (Electronically signed by Destiny Rubi R.N. - 01/01/2017 22:38)
--- NOTE | 2017-01-02 19:32 | Progress Note ---
Subjective General Pt seen and examined. Patient is very somnolent and has no evidence of alcohol withdrawal. Patient will possibly go for a scope later. Constitutional Other (too sedated to provide info ). Physical Exam Vital Signs / I&Os Vital Signs Date Time Temp Pulse Resp B/P Pulse O2 O2 Flow FiO2 Ox Delivery Rate 01/03 1813 99.0 108 20 107/54 98 Room Air 04/ 1428 101 23 131/77 100 04/ 1313 142 22 107/65 97 Room Air 04/06 1010 99.0 101 22 109/62 100 Nasal 2.0 Cannula 04/06 0945 103 20 94/57 100 Nasal 2.0 Cannula 04/06 0930 104 20 92/43 100 Nasal 2.0 Cannula 04/06 0915 109 20 97/50 99 Nasal 2.0 Cannula 04/06 0910 99.0 103 19 92/50 100 Nasal 2.0 Cannula 04/06 0855 98.4 104 27 95/48 98 04/06 0845 101 20 89/51 97 04/06 0839 101 27 85/45 96 04/06 0834 98.8 100 29 82/45 97 Nasal 2.0 Cannula 04/06 0711 101 16 100/59 99 Nasal 1.0 Cannula 04/06 0637 98.8 93 19 107/65 98 Nasal 1.0 Cannula 04/06 0517 100 19 100/55 100 04/06 0411 98.6 96 14 95/49 100 Nasal 1.0 Cannula 04/06 0315 98.6 98 11 97/52 100 Nasal 1.0 Cannula 04/06 0200 100 13 93/48 100 Nasal 1.0 Cannula 04/06 0100 110 16 95/63 100 Nasal 1.0 Cannula 04/06 0000 100 14 94/50 99 Nasal 1.0 Cannula 04/05 2313 102 16 90/52 98 04/05 2208 98.4 103 16 84/41 96 04/05 2123 102 19 96/47 100 /05 2010 102 18 93/50 97 04/05 1913 98 20 94/52 98 I&O 04/05 0800 04/05 1600 04/06 0000 Intake Total 2958 444 0 Output Total 150 325 132 Balance 2808 119 -132 General Appearance No acute distress HEENT Atraumatic, EOMI, Moist mucous membranes Lungs Clear to auscultation Cardiovascular Regular rate and rhythm, Normal S1 and S2, No murmurs, gallops, rubs Abdomen Soft, No tenderness Extremities No cyanosis, No clubbing, No edema, Normal pulses Skin No Rashes, No Breakdown, No Significant Lesions Neurological Normal speech, Sensation intact, Cranial nerves intact Psych/Mental Status Mood normal LAB Results Laboratory Tests 01/02 01/03 01/03 1900 1200 1213 Chemistry Plasma Sodium (136 - 145 mmol/L) 138 Plasma Potassium (3.5 - 5.1 mmol/L) 3.2 Plasma Chloride (98 - 107 mmol/L) 103 CO2 (Enzymatic) (21 - 32 mmol/L) 22 BUN (7 - 18 mg/dL) 26 Creatinine (0.6 - 1.3 mg/dL) 0.9 Est GFR ( Amer) (mL/min) >60 Est GFR (Non-Af Amer) (mL/min) >60 Glucose (70 - 110 mg/dL) 70 Plasma Calcium (8.5 - 10.1 mg/dL) 6.5 Total Bilirubin (0.0 - 1.0 mg/dL) 9.1 AST (15 - 37 U/L) 259 ALT (12 - 78 U/L) 67 Alkaline Phosphatase (46 - 116 U/L) 109 Total Protein (6.4 - 8.2 g/dL) 4.8 Albumin (3.3 - 5.0 g/dL) 1.6 Hematology WBC (4.5 - 11.5 K/uL) 12.0 9.5 RBC (4.50 - 5.90 M/uL) 2.78 2.72 Hgb (13.5 - 17.5 gm/dL) 9.3 9.0 Hct (41.0 - 53.0 %) 27.4 26.8 MCV (80 - 100 fL) 99 99 MCH (26 - 34 pg) 34 33 RDW (11.6 - 14.8 %) 20.6 21.1 Neut % (Auto) (50 - 75 %) 85.4 60 Lymph % (Auto) (25 - 40 %) 6.9 2 [place] % (Auto) (3 - 14 %) 7.3 0 Eos % (Auto) (0 - 4 %) 0.2 0 Baso % (Auto) (0 - 2 %) 0.2 0 Band Neutrophils % (0 - 8 %) 38 Metamyelocytes % (0 - 1 %) 0 Myelocytes (0 - 1 %) 0 Other Cell Type 0 Plt Count, EDTA (150 - 400 K/uL) 66 90 RBC Morphology 2+ ANISOCYTOSIS Poikilocytosis (manual 1+ Anisocytosis (manual) 2+ Target Cells OCC PUBS MCHC (31 - 37 g/dL) 34 34 Urines Urine Color BROWN Urine Appearance CLEAR Urine pH (5.0 - 8.0) 6.5 Ur Specific [place] (1.010 - 1.030) 1.010 Urine Protein (NEGATIVE) 1+ Urine Ketones (NEGATIVE) 2+ Urine Blood (NEGATIVE) NEGATIVE Urine Nitrite (NEGATIVE) POSITIVE Urine Bilirubin (NEGATIVE) 3+ Ur Bilirubin Confirm (NEGATIVE) POSITIVE Urine Urobilinogen (0.2 - 1.0 EU/dL) 4.0 Ur Leukocyte Esterase (NEGATIVE) TRACE Urine RBC (0 - 1 rbc/hpf) NONE SEEN Urine WBC (0 - 1 wbc/hpf) 1-3 Ur Epithelial Cells (0 - 5 EPI/hpf) 0-1 Urine Bacteria (NONE SEEN) FEW (1+) Urine Glucose (NEGATIVE) TRACE Urine Comment I Assessment and Plan Problem List 1. Upper GI bleeding Plan - pt is coming for a repeat episode of upper gi bleed - pt admits to not stopping drinking and that he continued to drink hard alcohol - pt will possibly for an upper endoscopy today - will continue to monitor 2. Alcoholic gastritis Plan - most likely secondary to alcoholic gastritis - will provide proton pump inhibitors and keep pt npo - no repeat episodes of bleeeding today 3. Volume depletion Plan - will aggressively rehydrate with IV fluids - will monitor urine out put
[2017-01-03] VITALS (17 sets, daily range): BP systolic 89–131; BP diastolic 43–77
--- NOTE | 2017-01-03 09:15 | OPERATIVE REPORT ---
DATE OF SURGERY: 01/03/2017 SURGEON: Bala Chan MD PREOPERATIVE DIAGNOSIS: 1. Upper gastrointestinal hemorrhage POSTOPERATIVE DIAGNOSES: 1. Erosive esophagitis 2. Alcoholic liver failure SURGICAL TECHNIQUE: The patient was taken to the endoscopy suite, where total IV general was administered and the patient was placed in the left lateral decubitus position. Noteworthy on this occasion is that the patient is markedly jaundiced and thrombocytopenic. The endoscope was introduced down the esophagus. The lower end of the esophagus demonstrated areas of erosion and fibrinous exudate as well as one clear area of open erosion. None of these were actively bleeding. I did not see clear cut varices at any point. There was also some hyperplastic tissue around the edge of the erosions, which may simply be regenerating tissue in the face of numerous injuries. This, however, was sampled with the biopsy forceps. There was oozing from this area, which was not catastrophic and this responded well to instillation of epinephrine containing local anesthetic. The stomach was entered and there was no active bleeding seen and there was no coffee-ground material. The pylorus was approached and this appeared normal. The duodenum also demonstrated no ulcers or active bleeding sites. A retroflexed view showed no gastric varices or Leyda-Lowry tears. On withdrawal, there were no additional findings. The patient left in good condition to continue his medical therapy.
--- NOTE | 2017-01-03 19:00 | Progress Note ---
Subjective General Pt seen and examined. Patient had the upper endoscopy today which revealed alcohol gastritis. Patient otherwise had no repeat episodes of upper GI bleed. Will continue to monitor. Constitutional Denies: Fever, Chills, Sweats, Weakness, Malaise, Other. Respiratory Denies: Cough, Dry, SOB w/exertion, Wheezing, Hemoptysis, Pleuritic Pain, Sputum , Other. Cardiovascular Denies: Chest Pain, Palpitations, Orthopnea, PND, Edema, Light-headedness, Other. Gastrointestinal Denies: Nausea, Vomiting, Abdominal Pain, Diarrhea, Constipation, Melena, Hematochezia, Other. Genitourinary Denies: Dysuria, Frequency, Incontinence, Hematuria, Retention, Other. Musculoskeletal Denies: Neck Pain, Shoulder Pain, Arm Pain, Back Pain, Hand Pain, Leg Pain, Foot Pain, Other. Neurological Denies: Weakness, Numbness, Incoordination, Change in speech, Confusion, Seizures, Other. Physical Exam Vital Signs / I&Os Vital Signs Date Time Temp Pulse Resp B/P Pulse O2 O2 Flow FiO2 Ox Delivery Rate 01/03 1813 99.0 108 20 107/54 98 Room Air 04/06 1428 101 23 131/77 100 04/06 1313 142 22 107/65 97 Room Air 04/06 1010 99.0 101 22 109/62 100 Nasal 2.0 Cannula 04/06 0945 103 20 94/57 100 Nasal 2.0 Cannula 04/06 0930 104 20 92/43 100 Nasal 2.0 Cannula 04/06 0915 109 20 97/50 99 Nasal 2.0 Cannula 04/06 0910 99.0 103 19 92/50 100 Nasal 2.0 Cannula 04/06 0855 98.4 104 27 95/48 98 04/06 0845 101 20 89/51 97 04/06 0839 101 27 85/45 96 04/06 0834 98.8 100 29 82/45 97 Nasal 2.0 Cannula 04/06 0711 101 16 100/59 99 Nasal 1.0 Cannula 04/06 0637 98.8 93 19 107/65 98 Nasal 1.0 Cannula 04/06 0517 100 19 100/55 100 04/06 0411 98.6 96 14 95/49 100 Nasal 1.0 Cannula 04/06 0315 98.6 98 11 97/52 100 Nasal 1.0 Cannula 04/06 0200 100 13 93/48 100 Nasal 1.0 Cannula 01/03 0100 110 16 95/63 100 Nasal 1.0 Cannula 01/03 0000 100 14 94/50 99 Nasal 1.0 Cannula 01/02 2313 102 16 90/52 98 01/02 2208 98.4 103 16 84/41 96 01/023 102 19 96/47 100 01/02 2011 102 18 93/50 97 01/02 1913 98 20 94/52 98 I&O 01/02 0800 01/02 1600 01/03 0000 Intake Total 2958 444 0 Output Total 150 325 132 Balance 2808 119 -132 General Appearance Alert, Oriented X3, No acute distress HEENT Atraumatic, Moist mucous membranes Lungs Clear to auscultation Cardiovascular Regular rate and rhythm, Normal S1 and S2, No murmurs, gallops, rubs Abdomen Soft, No tenderness Extremities No clubbing, No edema, Normal pulses, No tenderness Skin No Breakdown, No Significant Lesions Neurological Normal gait, Normal tone, Cranial nerves intact Psych/Mental Status Mood normal LAB Results Laboratory Tests 01/02 01/03 01/03 1900 1200 1213 Chemistry Plasma Sodium (136 - 145 mmol/L) 138 Plasma Potassium (3.5 - 5.1 mmol/L) 3.2 Plasma Chloride (98 - 107 mmol/L) 103 CO2 (Enzymatic) (21 - 32 mmol/L) 22 BUN (7 - 18 mg/dL) 26 Creatinine (0.6 - 1.3 mg/dL) 0.9 Est GFR ( Amer) (mL/min) >60 Est GFR (Non-Af Amer) (mL/min) >60 Glucose (70 - 110 mg/dL) 70 Plasma Calcium (8.5 - 10.1 mg/dL) 6.5 Total Bilirubin (0.0 - 1.0 mg/dL) 9.1 AST (15 - 37 U/L) 259 ALT (12 - 78 U/L) 67 Alkaline Phosphatase (46 - 116 U/L) 109 Total Protein (6.4 - 8.2 g/dL) 4.8 Albumin (3.3 - 5.0 g/dL) 1.6 Hematology WBC (4.5 - 11.5 K/uL) 12.0 9.5 RBC (4.50 - 5.90 M/uL) 2.78 2.72 Hgb (13.5 - 17.5 gm/dL) 9.3 9.0 Hct (41.0 - 53.0 %) 27.4 26.8 MCV (80 - 100 fL) 99 99 MCH (26 - 34 pg) 34 33 RDW (11.6 - 14.8 %) 20.6 21.1 Neut % (Auto) (50 - 75 %) 85.4 60 Lymph % (Auto) (25 - 40 %) 6.9 2 [place] % (Auto) (3 - 14 %) 7.3 0 Eos % (Auto) (0 - 4 %) 0.2 0 Baso % (Auto) (0 - 2 %) 0.2 0 Band Neutrophils % (0 - 8 %) 38 Metamyelocytes % (0 - 1 %) 0 Myelocytes (0 - 1 %) 0 Other Cell Type 0 Plt Count, EDTA (150 - 400 K/uL) 66 90 RBC Morphology 2+ ANISOCYTOSIS Poikilocytosis (manual 1+ Anisocytosis (manual) 2+ Target Cells OCC PUBS MCHC (31 - 37 g/dL) 34 34 Urines Urine Color BROWN Urine Appearance CLEAR Urine pH (5.0 - 8.0) 6.5 Ur Specific [place] (1.010 - 1.030) 1.010 Urine Protein (NEGATIVE) 1+ Urine Ketones (NEGATIVE) 2+ Urine Blood (NEGATIVE) NEGATIVE Urine Nitrite (NEGATIVE) POSITIVE Urine Bilirubin (NEGATIVE) 3+ Ur Bilirubin Confirm (NEGATIVE) POSITIVE Urine Urobilinogen (0.2 - 1.0 EU/dL) 4.0 Ur Leukocyte Esterase (NEGATIVE) TRACE Urine RBC (0 - 1 rbc/hpf) NONE SEEN Urine WBC (0 - 1 wbc/hpf) 1-3 Ur Epithelial Cells (0 - 5 EPI/hpf) 0-1 Urine Bacteria (NONE SEEN) FEW (1+) Urine Glucose (NEGATIVE) TRACE Urine Comment I Assessment and Plan Problem List 1. Alcoholic gastritis Plan - pt had endoscopic evidence of alcohol gastritis and esophagitis - pt placed on ppis and will monitor for improvement - will continue to trend hemoglobin 2. Upper GI bleeding Plan - no repeat episodes - will continue to monitor 3. Anemia Status Acute Onset Date Unknown Plan - will continue to trend cbc - secondary to acute blood loss anemia 4. Alcoholism Plan - pt has been admitted for the same thing in the past - pt advised to seek help given his current findings - will approach the patient about seeking help upon discharge 5. Hyperbilirubinemia Plan - pt has evidence of elevated systemic bilirubin with bilirubin spill out in the urine - presumably from alcoholic hepatitis - will continue to trend
[2017-01-04] VITALS (8 sets, daily range): BP systolic 92–113; BP diastolic 41–67
--- NOTE | 2017-01-04 18:03 | Progress Note ---
Subjective General Patient seen and examined. Patient is doing well however has periodic episodes of hypotension and low urine output. Patient otherwise counseled about drinking again. Constitutional Malaise. Denies: Fever, Chills, Sweats, Weakness, Other. Eyes Denies: Pain, Vision Change, Conjunctival Inflammation, Eyelid Inflammation, Redness, Other. ENT Denies: Ear Pain, Ear Discharge, Nose Pain, Nasal Discharge, Nasal Congestion, Mouth Pain, Mouth Swelling, Throat Pain, Throat Swelling, Other. Respiratory Denies: Cough, Dry, SOB w/exertion, Wheezing, Hemoptysis, Pleuritic Pain, Sputum , Other. Cardiovascular Denies: Chest Pain, Palpitations, Orthopnea, PND, Edema, Light-headedness, Other. Gastrointestinal Nausea. Genitourinary Denies: Other (dark urine ). Musculoskeletal Denies: Neck Pain, Shoulder Pain, Arm Pain, Back Pain, Hand Pain, Leg Pain, Foot Pain, Other. Skin Jaundice. Neurological Denies: Weakness, Numbness, Incoordination, Change in speech, Confusion, Seizures, Other. Physical Exam Vital Signs / I&Os Vital Signs Date Time Temp Pulse Resp B/P Pulse O2 O2 Flow FiO2 Ox Delivery Rate 01/04 1434 98.8 98 21 100/60 100 01/04 1304 142 21 113/67 100 Room Air 01/04 1231 98.2 01/04 1219 96/61 01/04 1051 96 19 98 Room Air 01/04 0616 98.8 91 17 95/54 98 Room Air 01/04 0423 98.8 90 17 99/55 100 Room Air 01/04 0221 98.2 89 23 92/41 95 Room Air 01/03 2254 99.3 90 24 89/45 100 / 1813 99.0 108 20 107/54 98 Room Air I&O 01/03 0800 04/06 1600 04/07 0000 Intake Total 2819 2991 600 Output Total 208 162 145 Balance 2611 2829 455 General Appearance Alert, Oriented X3, No acute distress HEENT Atraumatic, PERRLA, EOMI, Moist mucous membranes Lungs Clear to auscultation, Normal air movement Neck No JVD, No masses, No thyromegaly, No lymphadenopathy, 2+ carotid pulse wo bruit Cardiovascular Normal S1 and S2, No murmurs, gallops, rubs, - tachycardic Abdomen Soft, No tenderness, No masses, No hepatosplenomegaly Extremities No edema, Normal pulses, No tenderness, Ramon's sign negative Skin No Breakdown Neurological Normal speech, Sensation intact, Cranial nerves intact, Strength 5/ 5 x4 ext's, No lateralizing signs Psych/Mental Status Mental status normal LAB Results Laboratory Tests 01/03 9582 Chemistry Plasma Magnesium (1.8 - 2.4 mg/dL) 1.4 Hematology WBC (4.5 - 11.5 K/uL) 15.0 RBC (4.50 - 5.90 M/uL) 2.78 Hgb (13.5 - 17.5 gm/dL) 9.2 Hct (41.0 - 53.0 %) 27.8 MCV (80 - 100 fL) 100 MCH (26 - 34 pg) 33 RDW (11.6 - 14.8 %) 21.7 Neut % (Auto) (50 - 75 %) 53 Lymph % (Auto) (25 - 40 %) 13 [place] % (Auto) (3 - 14 %) 1 Eos % (Auto) (0 - 4 %) 0 Baso % (Auto) (0 - 2 %) 0 Band Neutrophils % (0 - 8 %) 33 Metamyelocytes % (0 - 1 %) 0 Myelocytes (0 - 1 %) 0 Other Cell Type 0 Plt Count, EDTA (150 - 400 K/uL) 98 Hypochromic-Microcytic 2+ Anisocytosis (manual) 2+ Target Cells 1+ PUBS MCHC (31 - 37 g/dL) 33 Assessment and Plan Problem List 1. Alcoholic gastritis Plan - patient has endoscopic evidence of alcoholic gastritis - bleeding has subsided and hemoglobin appears to be stable - will monitor for further blood loss - will continue to trend cbc 2. Anemia Status Acute Onset Date Unknown Plan - secondary to alcholic gastritis - no other bleeding areas noted - urine is dark secondary to bilirubin spill off - will continue to trend cbc 3. Hyperbilirubinemia Plan - pt has significant hyperbilirubinemia secondary to alcoholic gastritis - will trend lfts and continue to monitor - given severity of alcholic gastritis and inability to improve will start the patient on prednisolone 40 mg daily 4. Knee pain Plan - pt has a established history of avascular necrosis of the knee - pt needs further clearance before knee replacement can be done - will assist pt with pre-surgical work up as needed
[2017-01-05] VITALS (7 sets, daily range): BP systolic 100–117; BP diastolic 63–67
--- NOTE | 2017-01-05 18:24 | Progress Note ---
Subjective General Pt seen and examined. Patient has no complaints and his jaundice is improving. Pts blood pressure has improved as well. Constitutional Weakness, Malaise. Denies: Fever, Chills, Sweats, Other. Eyes Denies: Pain, Vision Change, Conjunctival Inflammation, Eyelid Inflammation, Redness, Other. Respiratory Denies: Cough, Dry, SOB w/exertion, Wheezing, Hemoptysis, Pleuritic Pain, Sputum , Other. Cardiovascular Denies: Chest Pain, Palpitations, Orthopnea, PND, Edema, Light-headedness, Other. Gastrointestinal Denies: Nausea, Vomiting, Abdominal Pain, Diarrhea, Constipation, Melena, Hematochezia, Other. Genitourinary Denies: Dysuria, Frequency, Incontinence, Hematuria, Retention, Other. Musculoskeletal Leg Pain. Denies: Neck Pain, Shoulder Pain, Arm Pain, Back Pain, Hand Pain, Foot Pain, Other. Skin Jaundice. Denies: Rash, Lesions, Bruising, Other. Neurological Denies: Weakness, Numbness, Incoordination, Change in speech, Confusion, Seizures, Other. Physical Exam Vital Signs / I&Os Vital Signs Date Time Temp Pulse Resp B/P Pulse O2 O2 Flow FiO2 Ox Delivery Rate 01/05 1806 97.7 82 22 102/63 96 Room Air 01/05 1451 98.6 83 23 108/65 98 Room Air 01/05 1050 98.4 81 24 101/65 98 Room Air 01/05 0621 98.4 83 28 108/64 100 Room Air 01/05 0220 98.6 81 18 117/67 100 Room Air 01/04 2230 98.4 83 21 106/67 98 Room Air 01/04 1826 98.6 101 18 97/60 98 I&O 01/04 0800 01/04 1600 01/05 0000 Intake Total 1994 720 991 Output Total 490 300 275 Balance 1505 420 716 General Appearance Alert, Oriented X3, No acute distress HEENT Atraumatic, PERRLA, Moist mucous membranes, - scleral icterus Lungs Clear to auscultation, Normal air movement Neck Supple, No JVD, No masses, 2+ carotid pulse wo bruit Cardiovascular Regular rate and rhythm, No murmurs, gallops, rubs Abdomen Soft, No tenderness, No rebound Extremities No edema, Normal pulses, Strength = upper ext's, Strength = lower ext's Skin No Significant Lesions, - juandice Neurological Normal speech, Normal tone, Sensation intact, Cranial nerves intact , No lateralizing signs LAB Results Laboratory Tests 01/05 0946 Chemistry Plasma Sodium (136 - 145 mmol/L) 139 Plasma Potassium (3.5 - 5.1 mmol/L) 3.2 Plasma Chloride (98 - 107 mmol/L) 107 CO2 (Enzymatic) (21 - 32 mmol/L) 19 BUN (7 - 18 mg/dL) 23 Creatinine (0.6 - 1.3 mg/dL) 0.9 Est GFR ( Amer) (mL/min) >60 Est GFR (Non-Af Amer) (mL/min) >60 Glucose (70 - 110 mg/dL) 127 Plasma Calcium (8.5 - 10.1 mg/dL) 7.3 Total Bilirubin (0.0 - 1.0 mg/dL) 8.5 AST (15 - 37 U/L) 235 ALT (12 - 78 U/L) 104 Alkaline Phosphatase (46 - 116 U/L) 126 Total Protein (6.4 - 8.2 g/dL) 4.9 Albumin (3.3 - 5.0 g/dL) 1.6 Hematology WBC (4.5 - 11.5 K/uL) 18.0 RBC (4.50 - 5.90 M/uL) 2.81 Hgb (13.5 - 17.5 gm/dL) 9.2 Hct (41.0 - 53.0 %) 27.9 MCV (80 - 100 fL) 100 MCH (26 - 34 pg) 33 RDW (11.6 - 14.8 %) 21.4 Neut % (Auto) (50 - 75 %) 81.3 Lymph % (Auto) (25 - 40 %) 7.2 [place] % (Auto) (3 - 14 %) 11.3 Eos % (Auto) (0 - 4 %) 0.1 Baso % (Auto) (0 - 2 %) 0.1 Plt Count, EDTA (150 - 400 K/uL) 136 PUBS MCHC (31 - 37 g/dL) 33 Assessment and Plan Problem List 1. Alcoholic gastritis Plan - secondary to excessive alcohol consumption - currently stable - will continue to trend cbc 2. Hyperbilirubinemia Plan - secondary to alcohol hepatitis - pt placed on prednisolone 40 mg daily - will continue to trend lfts 3. Anemia Plan - secondary to bleeding - will continue to trend cbc
[2017-01-06] VITALS (7 sets, daily range): BP systolic 11–145; BP diastolic 53–83
[2017-01-07 02:18] VITALS: BP 101/66
[2017-01-07 07:08] VITALS: BP 87/60
--- NOTE | 2017-01-07 08:14 | Progress Note ---
Subjective General Patient states that he is doing pretty well. No chest pain or abdominal jayden. Has been weak and needs assist to get to chair. No active bleeding. Physical Exam Vital Signs / I&Os Vital Signs Date Time Temp Pulse Resp B/P Pulse O2 O2 Flow FiO2 Ox Delivery Rate 01/07 0708 98.4 86 22 87/60 98 Room Air 0.0 01/07 0218 97.5 86 22 101/66 100 Room Air 01/06 2340 98.2 92 15 90/53 98 Room Air 01/06 1817 97.9 96 20 115/81 97 Room Air 01/06 1630 Room Air 01/06 1617 98.4 87 24 118/82 99 Room Air 01/06 1420 97.5 89 16 11/76 96 Room Air 0.0 01/06 1420 99.0 89 18 145/83 100 Room Air 0.0 01/06 1051 98.6 89 17 104/63 100 Room Air I&O 01/07 0000 01/06 1600 01/06 0800 Intake Total 109 151 2900 Output Total 50 275 200 Balance 190 -35 2260 General Appearance Alert, Cooperative HEENT slightly icteric eyes Lungs Clear to auscultation, Normal air movement Cardiovascular Regular rate and rhythm Abdomen Soft, No tenderness Extremities No edema LAB Results Laboratory Tests 01/07 01/07 0535 0535 Chemistry Plasma Sodium (136 - 145 mmol/L) 140 Plasma Potassium (3.5 - 5.1 mmol/L) 3.4 Plasma Chloride (98 - 107 mmol/L) 108 CO2 (Enzymatic) (21 - 32 mmol/L) 19 BUN (7 - 18 mg/dL) 23 Creatinine (0.6 - 1.3 mg/dL) 1.0 Est GFR ( Amer) (mL/min) >60 Est GFR (Non-Af Amer) (mL/min) >60 Glucose (70 - 110 mg/dL) 88 Plasma Calcium (8.5 - 10.1 mg/dL) 7.4 Plasma Magnesium (1.8 - 2.4 mg/dL) 1.7 Total Bilirubin (0.0 - 1.0 mg/dL) 8.1 Direct Bilirubin (0 - 0.3 mg/dL) 6.7 AST (15 - 37 U/L) 280 ALT (12 - 78 U/L) 149 Alkaline Phosphatase (46 - 116 U/L) 142 Ammonia (11 - 32 umol/L) 56 Total Protein (6.4 - 8.2 g/dL) 5.0 Albumin (3.3 - 5.0 g/dL) 1.6 Coagulation INR (0.8 - 1.2) 1.4 Hematology WBC (4.5 - 11.5 K/uL) 21.6 RBC (4.50 - 5.90 M/uL) 2.89 Hgb (13.5 - 17.5 gm/dL) 9.6 Hct (41.0 - 53.0 %) 28.9 MCV (80 - 100 fL) 100 MCH (26 - 34 pg) 33 RDW (11.6 - 14.8 %) 21.7 Neut % (Auto) (50 - 75 %) 71 Lymph % (Auto) (25 - 40 %) 11 [place] % (Auto) (3 - 14 %) 7 Eos % (Auto) (0 - 4 %) 1 Baso % (Auto) (0 - 2 %) 0 Band Neutrophils % (0 - 8 %) 10 Metamyelocytes % (0 - 1 %) 0 Myelocytes (0 - 1 %) 0 Other Cell Type 0 Plt Count, EDTA (150 - 400 K/uL) 172 RBC Morphology (78241 A) 2+ TARGET CELLS PUBS MCHC (31 - 37 g/dL) 33 Assessment and Plan Problem List 1. Upper GI bleeding Plan Hct stable at this time 2. Alcoholic gastritis Plan Is better and likely cause of bleed initially 3. Anemia Plan Secondary to gastritis now stable. 4. Weakness Plan PT eval ? SNF for strengthening. 5. Cirrhosis Plan Patient is going to likely from complications of his alcoholism if he continues to drink. I have discussed this today and will have SW eval and d/c planning.
[2017-01-07 09:39] VITALS: BP 107/76
[2017-01-07 13:53] VITALS: BP 106/73
[2017-01-07 17:48] VITALS: BP 103/71
--- NOTE | 2017-01-07 20:03 | Progress Note ---
Late Entry Date/Time Late Entry Date and Time LATE ENTRY Date of visit:01/06/17 Time of visit:914 Subjective General Davide Kasper is seen in follow-up of alcoholism with presenting complaint of hematemesis on January 02, 2017. He had an EGD done by Dr. Hinkle which showed erosive esophagitis but no evidence of active GI bleeding and no varices. He did require transfusion with 3 units of packed red blood cells and 2 units of fresh frozen plasma. Since then he stabilized. He has been going through alcohol withdrawal symptoms and has shown evidence of alcohol-induced hepatitis with elevated liver enzymes and significantly elevated bilirubin level. He has been started on prednisolone for this. He is continuing to be somewhat confused at times and has not been very physically active. He has been out of bed very little, most likely to just go to the bedside commode and sometimes for meals. He has gained a fair amount of weight with ongoing fluids. He is having an IV flow rate at 150 cc per hour. He is taking oral fluids fairly well and has had no emesis or major problems with diarrhea. Constitutional Weakness, Malaise. Eyes Denies: Vision Change, Conjunctival Inflammation, Eyelid Inflammation. ENT Denies: Other (no ENT issues.). Respiratory Denies: Cough, SOB w/exertion, Wheezing, Hemoptysis, Pleuritic Pain. Cardiovascular Edema. Denies: Chest Pain, Palpitations, Other (heart rhythm and rate have bee) . Gastrointestinal Abdominal Pain (mild epigastric pain). Denies: Diarrhea, Constipation, Hematochezia. Genitourinary Other (passing urine okay.). Musculoskeletal Other (generalized weakness and achin). Skin Jaundice, Bruising (some scattered small bruises.). Neurological Confusion. Denies: Incoordination, Seizures. Physical Exam Vital Signs / I&Os Vital Signs Date Time Temp Pulse Resp B/P Pulse O2 O2 Flow FiO2 Ox Delivery Rate 01/07 1748 97.5 92 20 103/71 96 01/07 1530 Room Air 0.0 01/07 1353 98.8 82 18 106/73 97 01/07 0939 98.2 113 22 107/76 98 Room Air 0.0 01/07 0800 0.0 01/07 0708 98.4 86 22 87/60 98 Room Air 0.0 01/07 0218 97.5 86 22 101/66 100 Room Air 01/06 2340 98.2 92 15 90/53 98 Room Air I&O 01/06 0800 01/06 1600 01/07 0000 Intake Total 2460 240 240 Output Total 200 275 50 Balance 2260 -35 190 General Appearance patient is a little somnolent and not clearly identified time and exact place. HEENT scleral icterus noted Lungs Clear to auscultation, Normal air movement Cardiovascular Regular rate and rhythm, Normal S1 and S2, No murmurs, gallops, rubs Abdomen abdomen is soft with some tenderness in epigastric area. There is some edema of the abdominal wall tissues. No fluid wave is present. Liver is not easily palpable. Bowel sounds are normal. Extremities Normal exam (extremities show generalized +), Normal pulses, No tenderness, extremities show generalized +1 edema. Skin generalized jaundice is noted. Neurological Normal exam (see the psych entry for detail) Psych/Mental Status patient shows some confusion and some impulsiveness. He is not having distinct hallucinations. Cranial nerves are stable. Motor and sensory exams are equal with no lateralizing findings. Other * LAB Results Laboratory Tests 01/07 01/07 0535 0535 Chemistry Plasma Sodium (136 - 145 mmol/L) 140 Plasma Potassium (3.5 - 5.1 mmol/L) 3.4 Plasma Chloride (98 - 107 mmol/L) 108 CO2 (Enzymatic) (21 - 32 mmol/L) 19 BUN (7 - 18 mg/dL) 23 Creatinine (0.6 - 1.3 mg/dL) 1.0 Est GFR ( Amer) (mL/min) >60 Est GFR (Non-Af Amer) (mL/min) >60 Glucose (70 - 110 mg/dL) 88 Plasma Calcium (8.5 - 10.1 mg/dL) 7.4 Plasma Magnesium (1.8 - 2.4 mg/dL) 1.7 Total Bilirubin (0.0 - 1.0 mg/dL) 8.1 Direct Bilirubin (0 - 0.3 mg/dL) 6.7 AST (15 - 37 U/L) 280 ALT (12 - 78 U/L) 149 Alkaline Phosphatase (46 - 116 U/L) 142 Ammonia (11 - 32 umol/L) 56 Total Protein (6.4 - 8.2 g/dL) 5.0 Albumin (3.3 - 5.0 g/dL) 1.6 Coagulation INR (0.8 - 1.2) 1.4 Hematology WBC (4.5 - 11.5 K/uL) 21.6 RBC (4.50 - 5.90 M/uL) 2.89 Hgb (13.5 - 17.5 gm/dL) 9.6 Hct (41.0 - 53.0 %) 28.9 MCV (80 - 100 fL) 100 MCH (26 - 34 pg) 33 RDW (11.6 - 14.8 %) 21.7 Neut % (Auto) (50 - 75 %) 71 Lymph % (Auto) (25 - 40 %) 11 [place] % (Auto) (3 - 14 %) 7 Eos % (Auto) (0 - 4 %) 1 Baso % (Auto) (0 - 2 %) 0 Band Neutrophils % (0 - 8 %) 10 Metamyelocytes % (0 - 1 %) 0 Myelocytes (0 - 1 %) 0 Other Cell Type 0 Plt Count, EDTA (150 - 400 K/uL) 172 RBC Morphology (40503 A) 2+ TARGET CELLS PUBS MCHC (31 - 37 g/dL) 33 Assessment and Plan Problem List 1. Upper GI bleeding Plan Patient's hematocrit is stable in the upper 20s. This will continued to be followed. He will continue on acid suppression therapy. 2. Alcoholic hepatitis Qualifiers Ascites presence: without ascites Qualified Code: K70.10 - Alcoholic hepatitis without ascites Plan Patient continues to show laboratory evidence of alcoholic hepatitis. He is started on prednisolone and this will continue. He does have some confusion. His heart is or whether this is part of his alcohol withdrawal syndrome still or perhaps due to elevated ammonia levels. Ammonia level will be ordered for tomorrow. 3. Alcohol withdrawal syndrome Status Acute Onset Date Unknown Plan Patient seems to be improving with the acute alcohol withdrawal situation. He will continue to be watched carefully for this. He will continue episodic lorazepam if necessary. 4. Hypomagnesemia Status Acute Onset Date Unknown Plan Magnesium is being replaced. Level of magnesium will be rechecked tomorrow. 5. Edema Plan Patient has had significant weight gain and edema develop. His IV fluids will be cut down to 60 cc per hour. He will be started on spironolactone. E&M Codes Rounding: Inpt-Moderate/01545
[2017-01-07 22:35] VITALS: BP 112/79
[2017-01-08] VITALS (7 sets, daily range): BP systolic 106–113; BP diastolic 61–72
--- NOTE | 2017-01-08 07:40 | Progress Note ---
Subjective General Admitted with alcoholism with presenting complaint of hematemesis on January 02, 2017. EGD done by Dr. Hinkle which showed erosive esophagitis but no evidence of active GI bleeding and no varices. He did require transfusion with 3 units of packed red blood cells and 2 units of fresh frozen plasma. Since then he stabilized. He has been going through alcohol withdrawal symptoms and has shown evidence of alcohol-induced hepatitis with elevated liver enzymes and significantly elevated bilirubin level. He has been started on prednisolone for this. He is continuing to be somewhat confused at times and has not been very physically active. He has been out of bed very little, most likely to just go to the bedside commode and sometimes for meals. He has gained a fair amount of weight with ongoing fluids. Now denies problems but nursing reports weakness and confusion. Unable to safely transfer. Physical Exam Vital Signs / I&Os Vital Signs Date Time Temp Pulse Resp B/P Pulse O2 O2 Flow FiO2 Ox Delivery Rate 01/08 0627 98.4 86 20 108/69 96 Room Air 01/08 0155 97.9 85 18 113/71 100 Room Air 01/07 2235 97.9 84 20 112/79 100 Room Air 01/07 1748 97.5 92 20 103/71 96 01/07 1530 Room Air 0.0 01/07 1353 98.8 82 18 106/73 97 01/07 0939 98.2 113 22 107/76 98 Room Air 0.0 01/07 0800 0.0 I&O 01/07 0800 01/07 1600 01/08 0000 Intake Total 240 360 480 Output Total 412 250 575 Balance -172 110 -95 General Appearance Alert, Confused. Lungs Clear to auscultation Cardiovascular Regular rate and rhythm Abdomen Normal bowel sounds, Full abdomen with some edema. Extremities 3+ edema Skin No Rashes Neurological No lateralizing signs, No oriented but states he wants to go home. No asterixis. LAB Results Laboratory Tests 01/08 01/08 0520 0520 Chemistry Plasma Sodium (136 - 145 mmol/L) 141 Plasma Potassium (3.5 - 5.1 mmol/L) 3.3 Plasma Chloride (98 - 107 mmol/L) 110 CO2 (Enzymatic) (21 - 32 mmol/L) 20 BUN (7 - 18 mg/dL) 24 Creatinine (0.6 - 1.3 mg/dL) 0.9 Est GFR ( Amer) (mL/min) >60 Est GFR (Non-Af Amer) (mL/min) >60 Glucose (70 - 110 mg/dL) 81 Plasma Calcium (8.5 - 10.1 mg/dL) 7.7 Total Bilirubin (0.0 - 1.0 mg/dL) 8.1 AST (15 - 37 U/L) 285 ALT (12 - 78 U/L) 164 Alkaline Phosphatase (46 - 116 U/L) 139 Ammonia (11 - 32 umol/L) 80 Total Protein (6.4 - 8.2 g/dL) 4.5 Albumin (3.3 - 5.0 g/dL) 1.5 Hematology WBC (4.5 - 11.5 K/uL) 25.6 RBC (4.50 - 5.90 M/uL) 2.79 Hgb (13.5 - 17.5 gm/dL) 9.4 Hct (41.0 - 53.0 %) 28.3 MCV (80 - 100 fL) 101 MCH (26 - 34 pg) 34 RDW (11.6 - 14.8 %) 22.7 Neut % (Auto) (50 - 75 %) 66 Lymph % (Auto) (25 - 40 %) 4 [place] % (Auto) (3 - 14 %) 7 Eos % (Auto) (0 - 4 %) 1 Baso % (Auto) (0 - 2 %) 0 Band Neutrophils % (0 - 8 %) 22 Metamyelocytes % (0 - 1 %) 0 Myelocytes (0 - 1 %) 0 Other Cell Type 0 Plt Count, EDTA (150 - 400 K/uL) 176 RBC Morphology (63235 A) 2+ TARGET CELLS PUBS MCHC (31 - 37 g/dL) 33 Assessment and Plan Problem List 1. Alcoholic hepatitis Qualifiers Ascites presence: without ascites Qualified Code: K70.10 - Alcoholic hepatitis without ascites Plan Ammonia increased. Ontreatment. 2. Upper GI bleeding Plan No active bleed. 3. Weakness Plan Will need snf. 4. Leukocytosis Plan Probably due to steroids. Will check cxr and repeat ua.
--- NOTE | 2017-01-08 08:38 | DIAGNOSTIC IMAGING REPORT ---
PROCEDURE: XR CHEST 2 VIEW INDICATION: WBC elevation TECHNIQUE: PA and lateral views. COMPARISON: Compared to chest x-ray on 11/10/2016. FINDINGS: Allowing for suboptimal inspiration, there is mild left basilar subsegmental atelectasis. Right lung is clear. Heart and mediastinum are normal. Thorax is normal. IMPRESSION: 1. Mild left basilar subsegmental atelectasis (findings accentuated due to suboptimal inspiration). 2. Otherwise negative chest.
[2017-01-09 01:59] VITALS: BP 132/68
[2017-01-09 06:29] VITALS: BP 114/78
--- NOTE | 2017-01-09 07:38 | Progress Note ---
Subjective General Admitted with alcoholism, hematemesis on January 02, 2017. EGD done by Dr. Hinkle which showed erosive esophagitis but no evidence of active GI bleeding and no varices. Transfusion with 3 units of packed red blood cells and 2 units of fresh frozen plasma, stabilized. Has alcohol withdrawal symptoms and evidence of alcohol-induced hepatitis with elevated liver enzymes and significantly elevated bilirubin level. He has been started on prednisolone for this. Confused at times and has not been very physically active. He has been out of bed very little, most likely to just go to the bedside commode and sometimes for meals. He has gained a fair amount of weight with ongoing fluids. Now denies problems but nursing reports weakness and confusion. Unable to safely transfer. Today is oriented to place and date and reason for admit but is a bit lethargic. Physical Exam Vital Signs / I&Os Vital Signs Date Time Temp Pulse Resp B/P Pulse O2 O2 Flow FiO2 Ox Delivery Rate 01/09 0629 98.4 92 18 114/78 99 Room Air 01/09 0430 0.0 01/09 0159 98.2 74 17 132/68 99 Room Air 01/08 2246 98.4 82 17 109/68 98 Room Air 01/08 2044 91 106/61 98 01/08 1820 98.2 80 18 111/72 100 Room Air 01/08 1619 0.0 01/08 1450 98.2 79 18 106/69 98 Room Air 01/08 1042 98.4 86 18 113/67 100 Room Air I&O 01/08 0800 01/08 1600 01/09 0000 Intake Total 550 360 360 Output Total 50 350 250 Balance 500 10 110 General Appearance Alert, Oriented X3, Cooperative Lungs Clear to auscultation Cardiovascular Regular rate and rhythm Abdomen Soft, No tenderness Extremities 2+ edema LAB Results Laboratory Tests 01/08 01/09 1240 0530 Chemistry Plasma Sodium (136 - 145 mmol/L) 142 Plasma Potassium (3.5 - 5.1 mmol/L) 3.7 Plasma Chloride (98 - 107 mmol/L) 109 CO2 (Enzymatic) (21 - 32 mmol/L) 20 BUN (7 - 18 mg/dL) 27 Creatinine (0.6 - 1.3 mg/dL) 1.0 Est GFR ( Amer) (mL/min) >60 Est GFR (Non-Af Amer) (mL/min) >60 Glucose (70 - 110 mg/dL) 103 Plasma Calcium (8.5 - 10.1 mg/dL) 7.8 Plasma Magnesium (1.8 - 2.4 mg/dL) 1.9 Total Bilirubin (0.0 - 1.0 mg/dL) 8.2 AST (15 - 37 U/L) 301 ALT (12 - 78 U/L) 186 Alkaline Phosphatase (46 - 116 U/L) 155 Total Protein (6.4 - 8.2 g/dL) 5.0 Albumin (3.3 - 5.0 g/dL) 1.5 Hematology WBC (4.5 - 11.5 K/uL) 28.9 RBC (4.50 - 5.90 M/uL) 2.95 Hgb (13.5 - 17.5 gm/dL) 9.8 Hct (41.0 - 53.0 %) 30.0 MCV (80 - 100 fL) 101 MCH (26 - 34 pg) 33 RDW (11.6 - 14.8 %) 22.7 Neut % (Auto) (50 - 75 %) 63 Lymph % (Auto) (25 - 40 %) 8 [place] % (Auto) (3 - 14 %) 10 Eos % (Auto) (0 - 4 %) 1 Baso % (Auto) (0 - 2 %) 0 Band Neutrophils % (0 - 8 %) 18 Metamyelocytes % (0 - 1 %) 0 Myelocytes (0 - 1 %) 0 Other Cell Type 0 Plt Count, EDTA (150 - 400 K/uL) 171 RBC Morphology 2+ ANISOCYTOSIS PUBS MCHC (31 - 37 g/dL) 33 Urines Urine Color BROWN Urine Appearance CLEAR Urine pH (5.0 - 8.0) 5.5 Ur Specific [place] (1.010 - 1.030) 1.010 Urine Protein (NEGATIVE) TRACE Urine Ketones (NEGATIVE) TRACE Urine Blood (NEGATIVE) NEGATIVE Urine Nitrite (NEGATIVE) POSITIVE Urine Bilirubin (NEGATIVE) 3+ Ur Bilirubin Confirm (NEGATIVE) POSITIVE Urine Urobilinogen (0.2 - 1.0 EU/dL) 1.0 Ur Leukocyte Esterase (NEGATIVE) NEGATIVE Urine RBC (0 - 1 rbc/hpf) 0-1 Urine WBC (0 - 1 wbc/hpf) 3-5 Ur Epithelial Cells (0 - 5 EPI/hpf) 0-1 Urine Bacteria (NONE SEEN) FEW (1+) Urine Glucose (NEGATIVE) TRACE Urine Comment CULTURE INDICATED 01/09 0530 Chemistry Ammonia (11 - 32 umol/L) 49 Microbiology Date/Time Procedure - Status Source Growth 01/08 1240 Urine Culture - RECD URINE CC Assessment and Plan Problem List 1. Cirrhosis Plan Stable with improved ammonia with med change as per pharmacy. Generally weak. Will start PT as tolerated. Disposition plans. 2. Alcohol withdrawal syndrome Status Acute Onset Date Unknown Plan Stable. 3. Anemia Status Acute Onset Date Unknown Plan Stable post transfusion with no evidence of bleeding.
[2017-01-09 10:41] VITALS: BP 113/78
[2017-01-09 14:45] VITALS: BP 117/77
[2017-01-09 18:50] VITALS: BP 126/65
[2017-01-09 22:27] VITALS: BP 120/69
[2017-01-10 02:37] VITALS: BP 119/52
[2017-01-10 06:47] VITALS: BP 105/79
[2017-01-10 10:35] VITALS: BP 118/82
--- NOTE | 2017-01-10 11:13 | Progress Note ---
Subjective General Admitted with alcoholism, hematemesis on January 02, 2017. EGD done by Dr. Hinkle which showed erosive esophagitis but no evidence of active GI bleeding and no varices. Transfusion with 3 units of packed red blood cells and 2 units of fresh frozen plasma, stabilized. Has alcohol withdrawal symptoms and evidence of alcohol-induced hepatitis with elevated liver enzymes and significantly elevated bilirubin level. He has been started on prednisolone for this. Confused at times and has not been very physically active. He has been out of bed very little, most likely to just go to the bedside commode and sometimes for meals. He has gained a fair amount of weight with ongoing fluids. Patient is still weak and lethargic. Able to follow instructions. No active bleeding No chest pain or shortness of breath Physical Exam Vital Signs / I&Os Vital Signs Date Time Temp Pulse Resp B/P Pulse O2 O2 Flow FiO2 Ox Delivery Rate 01/10 1035 98.1 86 18 118/82 100 Room Air 01/10 1019 Room Air 01/10 0647 97.9 85 18 105/79 100 Room Air 01/10 0237 98.2 71 17 119/52 97 Room Air 01/09 2227 97.9 77 18 120/69 98 Room Air 01/09 1958 Room Air 01/09 1850 97.9 82 28 126/65 99 Room Air 01/09 1445 98.2 96 18 117/77 98 Room Air I&O 01/10 0000 01/09 1600 01/09 0800 Intake Total 480 460 300 Output Total 600 400 375 Balance -120 60 -75 General Appearance Alert, Cooperative, No acute distress Lungs Clear to auscultation Cardiovascular Regular rate and rhythm, Normal S1 and S2 Abdomen Soft, No tenderness, No guarding Extremities bilateral pitting edema up to both calves Skin echymotic areas on both forearms Neurological No lateralizing signs, negative asterixis Psych/Mental Status lethargic, slow to answer questions Assessment and Plan Problem List 1. Upper GI bleeding Plan patient hgb and hct stable. no evidence of recurrent bleeding patient more oriented. will decreased dose of ativan start Gabapentin 600 mg tid x 2 weeks, then 600 mg bid x 1 week then 600 mg daily for alcoohol withdrawal symptoms check chronic hepatitis panel. ultrasound of liver/gallablader leukocytosis probaby secondary to steroids/ stress. repeat chest xray. patient easily at risk for aspiration pneumonia. recheck labs in am 2. Alcoholic gastritis 3. Alcohol withdrawal syndrome Status Acute Onset Date Unknown 4. Anemia Status Acute Onset Date Unknown 5. Hypomagnesemia Status Acute Onset Date Unknown 6. Cirrhosis 7. Leukocytosis
--- NOTE | 2017-01-10 11:43 | DIAGNOSTIC IMAGING REPORT ---
PROCEDURE: XR CHEST 1 VIEW INDICATION: r/o pneumonia TECHNIQUE: Portable AP view 11:27 a.m. COMPARISON: Chest 01/08/2017 and 09/28/2016 FINDINGS: Poor inspiration. Lungs are clear. Heart and mediastinum are normal. Thorax is normal. IMPRESSION: 1. Negative chest.
[2017-01-10 14:33] VITALS: BP 115/83
[2017-01-10 18:15] VITALS: BP 118/81
[2017-01-10 23:45] VITALS: BP 109/69
[2017-01-11] VITALS (7 sets, daily range): BP systolic 92–126; BP diastolic 54–80
--- NOTE | 2017-01-11 09:19 | DIAGNOSTIC IMAGING REPORT ---
PROCEDURE: US ABDOMEN ULTRASOUND-LIMITED INDICATION: liver and gallbladder TECHNIQUE: Wang scale and color Doppler sonographic images of the abdomen were obtained. COMPARISON: CT abdomen/pelvis 09/28/2016 FINDINGS: Liver measures 29 cm with diffuse increased echogenicity and liver contour irregularity. New mild ascites. Normal gallbladder without gallstones. Common bile duct not well visualized. Pancreas, aorta, portal vein and IVC are not well visualized. Right kidney measures 11.8 cm. IMPRESSION: 1. Hepatomegaly with findings suggestive of cirrhosis with new mild ascites
--- NOTE | 2017-01-11 19:16 | Progress Note ---
Subjective General Patient seen and examined. Patient has not had any significant improvement over the past day but he does remark that he is feeling well. Patient otherwise has no complaints. Constitutional Weakness. Denies: Fever, Chills, Sweats, Malaise, Other. Eyes Denies: Pain, Vision Change, Conjunctival Inflammation, Eyelid Inflammation, Redness, Other. ENT Denies: Ear Pain, Ear Discharge, Nose Pain, Nasal Discharge, Nasal Congestion, Mouth Pain, Mouth Swelling, Throat Pain, Throat Swelling, Other. Respiratory Denies: Cough, Dry, SOB w/exertion, Wheezing, Hemoptysis, Pleuritic Pain, Sputum , Other. Cardiovascular Denies: Chest Pain, Palpitations, Orthopnea, PND, Edema, Light-headedness, Other. Gastrointestinal Abdominal Pain, Diarrhea. Denies: Nausea, Vomiting, Constipation, Melena, Hematochezia, Other. Genitourinary Denies: Dysuria, Frequency, Incontinence, Hematuria, Retention, Other. Musculoskeletal Denies: Neck Pain, Shoulder Pain, Arm Pain, Back Pain, Hand Pain, Leg Pain, Foot Pain, Other. Skin Denies: Rash, Lesions, Jaundice, Bruising, Other. Neurological Denies: Weakness, Numbness, Incoordination, Change in speech, Confusion, Seizures, Other. Physical Exam Vital Signs / I&Os Vital Signs Date Time Temp Pulse Resp B/P Pulse O2 O2 Flow FiO2 Ox Delivery Rate 01/12 1010 98.1 99 18 119/76 97 Room Air 01/12 0855 Room Air 0.0 01/12 0623 98.8 94 20 122/73 100 Room Air 01/12 0235 98.1 88 20 113/72 99 Room Air 01/11 2313 98.1 88 20 126/80 100 Room Air 01/11 2120 Room Air 01/11 1936 Room Air 01/11 1753 98.1 89 20 108/79 97 I&O 01/11 0800 01/11 1600 01/12 0000 Intake Total 50 240 1080 Output Total 250 100 Balance -200 240 980 General Appearance Alert, Oriented X3, No acute distress HEENT Atraumatic, Moist mucous membranes Lungs Clear to auscultation, Normal air movement Cardiovascular Regular rate and rhythm, Normal S1 and S2, No murmurs, gallops, rubs Abdomen Soft, No rebound, No masses, - slight tenderness to the sub umbilicus Extremities No clubbing, No edema, Normal pulses, - persisent hip pain and left knee pain Skin - diffuse jaundice Neurological Normal speech, Sensation intact, Cranial nerves intact, No lateralizing signs LAB Results Laboratory Tests 01/12 01/12 0520 0520 Chemistry Plasma Sodium (136 - 145 mmol/L) 138 Plasma Potassium (3.5 - 5.1 mmol/L) 4.1 Plasma Chloride (98 - 107 mmol/L) 107 CO2 (Enzymatic) (21 - 32 mmol/L) 21 BUN (7 - 18 mg/dL) 30 Creatinine (0.6 - 1.3 mg/dL) 1.1 Est GFR ( Amer) (mL/min) >60 Est GFR (Non-Af Amer) (mL/min) >60 Glucose (70 - 110 mg/dL) 112 Plasma Calcium (8.5 - 10.1 mg/dL) 7.7 Total Bilirubin (0.0 - 1.0 mg/dL) 7.3 AST (15 - 37 U/L) 321 ALT (12 - 78 U/L) 248 Alkaline Phosphatase (46 - 116 U/L) 174 Total Protein (6.4 - 8.2 g/dL) 5.4 Albumin (3.3 - 5.0 g/dL) 1.6 Procalcitonin (0 - 0.5 ng/mL) 2.7 Hematology WBC (4.5 - 11.5 K/uL) 37.2 RBC (4.50 - 5.90 M/uL) 3.20 Hgb (13.5 - 17.5 gm/dL) 10.7 Hct (41.0 - 53.0 %) 33.1 MCV (80 - 100 fL) 103 MCH (26 - 34 pg) 34 RDW (11.6 - 14.8 %) 22.0 Neut % (Auto) (50 - 75 %) 64 Lymph % (Auto) (25 - 40 %) 9 [place] % (Auto) (3 - 14 %) 1 Eos % (Auto) (0 - 4 %) 1 Baso % (Auto) (0 - 2 %) 0 Band Neutrophils % (0 - 8 %) 25 Metamyelocytes % (0 - 1 %) 0 Myelocytes (0 - 1 %) 0 Other Cell Type 0 Plt Count, EDTA (150 - 400 K/uL) 176 Hypochromic-Microcytic 2+ Anisocytosis (manual) 2+ PUBS MCHC (31 - 37 g/dL) 32 Microbiology Date/Time Procedure - Status Source Growth 01/12 430 Clostridium difficile Toxin A & B - COMP STOOL 01/12 430 Specimen Source - COMP STOOL Assessment and Plan Problem List 1. Leukocytosis Plan - pt has been having persistent leukocytosis - could be partially due to the prednisolone , will obtain procalcitonin - will send for the pt for ct scan if white blood count does not resolve 2. Alcoholic hepatitis Qualifiers Ascites presence: without ascites Qualified Code: K70.10 - Alcoholic hepatitis without ascites Plan - will continue to trend liver function tests - will c/w prednisolone - 3. Knee pain Plan - secondary to osteoarthritis and avascular necrosis - will treat pain as needed
[2017-01-12 02:35] VITALS: BP 113/72
[2017-01-12 06:23] VITALS: BP 122/73
[2017-01-12 10:10] VITALS: BP 119/76
--- NOTE | 2017-01-12 15:31 | DIAGNOSTIC IMAGING REPORT ---
PROCEDURE: CT ABD/PELVIS WITH CONTRAST CLINICAL INDICATION: Jaundice. TECHNIQUE: 145 ml. of Isovue 300 were injected intravenously and axial images were obtained of the entire abdomen and pelvis with sagittal and coronal reformations. COMPARISON: Abdominal ultrasound 01/11/[address] abdomen/pelvis 09/28/2016. FINDINGS: ABDOMEN: Mild left basilar atelectasis and small left pleural effusion. Heart size is normal. Progression of hepatomegaly (27.6 cm, previously 23 cm) with fatty infiltration, liver contour irregularity and new mild to moderate ascites. Spleen is normal size with new peripheral hypodensities which may represent infarcts. The gallbladder, pancreas and adrenal glands are normal. Normal left kidney. Small right renal cyst. Normal abdominal aorta. PELVIS: Normal appendix. 1.9 cm periumbilical fat-containing hernia with infiltration of the fat. Moderate ascites. No pelvic mass. Right hip avascular necrosis. IMPRESSION: 1. Progression of hepatomegaly with fatty infiltration and liver contour irregularity suggestive of cirrhosis with new mild to moderate ascites 2. Peripheral splenic hypodensities suggestive of splenic infarcts 3. 1.9 cm periumbilical fat-containing hernia with infiltration of the fat. Consider incarceration. Correlate clinically. 4. Right hip avascular necrosis 5. Small left pleural effusion 6. Results discussed with Dr. Alfonso All CT scans at this facility use dose modulation, iterative reconstruction, and/or weight-based dosing when appropriate to reduce radiation dose to as low as reasonably achievable.
--- NOTE | 2017-01-12 16:40 | Progress Note ---
Subjective General Pt seen and examined. Patient has improved abdominal pain and claims to be feeling well. Patient is persistenly jaundiced and is still very lethargic. Constitutional Weakness. Denies: Fever, Chills, Sweats, Malaise, Other. Eyes Denies: Pain, Vision Change, Conjunctival Inflammation, Eyelid Inflammation, Redness, Other. ENT Denies: Ear Pain, Ear Discharge, Nose Pain, Nasal Discharge, Nasal Congestion, Mouth Pain, Mouth Swelling, Throat Pain, Throat Swelling, Other. Respiratory Denies: Cough, Dry, SOB w/exertion, Wheezing, Hemoptysis, Pleuritic Pain, Sputum , Other. Cardiovascular Denies: Chest Pain, Palpitations, Orthopnea, PND, Edema, Light-headedness, Other. Gastrointestinal Abdominal Pain, Diarrhea. Denies: Nausea, Vomiting, Constipation, Melena, Hematochezia, Other. Genitourinary Denies: Dysuria, Frequency, Incontinence, Hematuria, Retention, Other. Musculoskeletal Other (hip pain and knee pain). Skin Jaundice. Denies: Rash, Lesions, Bruising, Other. Neurological Denies: Weakness, Numbness, Incoordination, Change in speech, Confusion, Seizures, Other. Physical Exam Vital Signs / I&Os Vital Signs Date Time Temp Pulse Resp B/P Pulse O2 O2 Flow FiO2 Ox Delivery Rate 01/12 1010 98.1 99 18 119/76 97 Room Air 01/12 0855 Room Air 0.0 01/12 0623 98.8 94 20 122/73 100 Room Air 01/12 0235 98.1 88 20 113/72 99 Room Air 01/11 2313 98.1 88 20 126/80 100 Room Air 01/11 2120 Room Air 01/11 1936 Room Air 01/11 1753 98.1 89 20 108/79 97 I&O 01/11 0800 01/11 1600 01/12 0000 Intake Total 50 240 1080 Output Total 250 100 Balance -200 240 980 General Appearance Alert, Oriented X3, No acute distress Lungs Clear to auscultation, Normal air movement Neck Supple, No JVD, No masses Cardiovascular Regular rate and rhythm, Normal S1 and S2, No murmurs, gallops, rubs Abdomen Soft, No tenderness Extremities No edema, Normal pulses, No tenderness Skin No Breakdown, No Significant Lesions Neurological Normal speech, Normal tone, Cranial nerves intact Psych/Mental Status Mood normal LAB Results Laboratory Tests 01/12 01/12 0520 0520 Chemistry Plasma Sodium (136 - 145 mmol/L) 138 Plasma Potassium (3.5 - 5.1 mmol/L) 4.1 Plasma Chloride (98 - 107 mmol/L) 107 CO2 (Enzymatic) (21 - 32 mmol/L) 21 BUN (7 - 18 mg/dL) 30 Creatinine (0.6 - 1.3 mg/dL) 1.1 Est GFR ( Amer) (mL/min) >60 Est GFR (Non-Af Amer) (mL/min) >60 Glucose (70 - 110 mg/dL) 112 Plasma Calcium (8.5 - 10.1 mg/dL) 7.7 Total Bilirubin (0.0 - 1.0 mg/dL) 7.3 AST (15 - 37 U/L) 321 ALT (12 - 78 U/L) 248 Alkaline Phosphatase (46 - 116 U/L) 174 Total Protein (6.4 - 8.2 g/dL) 5.4 Albumin (3.3 - 5.0 g/dL) 1.6 Procalcitonin (0 - 0.5 ng/mL) 2.7 Hematology WBC (4.5 - 11.5 K/uL) 37.2 RBC (4.50 - 5.90 M/uL) 3.20 Hgb (13.5 - 17.5 gm/dL) 10.7 Hct (41.0 - 53.0 %) 33.1 MCV (80 - 100 fL) 103 MCH (26 - 34 pg) 34 RDW (11.6 - 14.8 %) 22.0 Neut % (Auto) (50 - 75 %) 64 Lymph % (Auto) (25 - 40 %) 9 [place] % (Auto) (3 - 14 %) 1 Eos % (Auto) (0 - 4 %) 1 Baso % (Auto) (0 - 2 %) 0 Band Neutrophils % (0 - 8 %) 25 Metamyelocytes % (0 - 1 %) 0 Myelocytes (0 - 1 %) 0 Other Cell Type 0 Plt Count, EDTA (150 - 400 K/uL) 176 Hypochromic-Microcytic 2+ Anisocytosis (manual) 2+ PUBS MCHC (31 - 37 g/dL) 32 Microbiology Date/Time Procedure - Status Source Growth 01/12 430 Clostridium difficile Toxin A & B - COMP STOOL 04/15 0430 Specimen Source - COMP STOOL Assessment and Plan Problem List 1. Alcoholic hepatitis Qualifiers Ascites presence: without ascites Qualified Code: K70.10 - Alcoholic hepatitis without ascites Plan - liver enzymes are beginning to show signs of leveling off - will continue with the prednisolone for the time being - daily liver function testst - will continue to monitor - CT scan does not show any evidence of large volume asictes 2. Leukocytosis Plan - pt has persistent leukocytosis - it was thought that this could be secondary to steroids however patient has a persistently elevated pro-oscar - will order indium tagged scan 3. Knee pain Plan - secondary to osteoarthritis and avascular necrosis - will treat symptomatically 4. Anemia Status Acute Onset Date Unknown Plan - stable
[2017-01-12 18:00] VITALS: BP 109/76
[2017-01-12 22:47] VITALS: BP 116/71
[2017-01-13 02:25] VITALS: BP 117/67
[2017-01-13 06:31] VITALS: BP 113/68
--- NOTE | 2017-01-13 09:51 | Progress Note ---
Subjective General Pt seen and examined. Patient feels better however is still having persistent diarrhe. Will send stool for analysis/ Constitutional Denies: Fever, Chills, Sweats, Weakness, Malaise, Other. Eyes Denies: Pain, Vision Change, Conjunctival Inflammation, Eyelid Inflammation, Redness, Other. Respiratory Denies: Cough, Dry, SOB w/exertion, Wheezing, Hemoptysis, Pleuritic Pain, Sputum , Other. Cardiovascular Denies: Chest Pain, Palpitations, Orthopnea, PND, Edema, Light-headedness, Other. Gastrointestinal Denies: Nausea, Vomiting, Abdominal Pain, Diarrhea, Constipation, Melena, Hematochezia, Other. Genitourinary Denies: Dysuria, Frequency, Incontinence, Hematuria, Retention, Other. Musculoskeletal Denies: Neck Pain, Shoulder Pain, Arm Pain, Back Pain, Hand Pain, Leg Pain, Foot Pain, Other. Skin Denies: Rash, Lesions, Jaundice, Bruising, Other. Neurological Denies: Weakness, Numbness, Incoordination, Change in speech, Confusion, Seizures, Other. Physical Exam Vital Signs / I&Os Vital Signs Date Time Temp Pulse Resp B/P Pulse O2 O2 Flow FiO2 Ox Delivery Rate 01/13 0631 98.1 89 18 113/68 99 Room Air 01/13 0225 98.4 86 16 117/67 100 Room Air 01/12 2247 98.1 83 16 116/71 98 Room Air 01/12 2100 Room Air 01/12 1800 98.1 86 16 109/76 98 Room Air 0.0 01/12 1010 98.1 99 18 119/76 97 Room Air I&O 01/12 0800 01/12 1600 01/13 0000 Intake Total 550 1200 860 Output Total Balance 550 1200 860 General Appearance Alert, Oriented X3, No acute distress HEENT Atraumatic, PERRLA, Moist mucous membranes, - scleral icterus Lungs Clear to auscultation Cardiovascular Regular rate and rhythm, Normal S1 and S2, No murmurs, gallops, rubs Abdomen Soft, No tenderness, No masses, No hepatosplenomegaly Extremities No clubbing, No edema, Normal pulses, No tenderness, Strength = upper ext's, Strength = lower ext's Skin No Breakdown, - diffuse jaundice Neurological Normal speech, Normal tone, Cranial nerves intact, Strength 5/5 x4 ext's Psych/Mental Status Mood normal LAB Results Laboratory Tests 01/13 01/13 0605 0605 Chemistry Plasma Sodium (136 - 145 mmol/L) 137 Plasma Potassium (3.5 - 5.1 mmol/L) 4.2 Plasma Chloride (98 - 107 mmol/L) 107 CO2 (Enzymatic) (21 - 32 mmol/L) 18 BUN (7 - 18 mg/dL) 33 Creatinine (0.6 - 1.3 mg/dL) 1.1 Est GFR ( Amer) (mL/min) >60 Est GFR (Non-Af Amer) (mL/min) >60 Glucose (70 - 110 mg/dL) 105 Plasma Calcium (8.5 - 10.1 mg/dL) 7.6 Total Bilirubin (0.0 - 1.0 mg/dL) 6.3 AST (15 - 37 U/L) 260 ALT (12 - 78 U/L) 217 Alkaline Phosphatase (46 - 116 U/L) 158 Ammonia (11 - 32 umol/L) 35 Total Protein (6.4 - 8.2 g/dL) 5.0 Albumin (3.3 - 5.0 g/dL) 1.5 Coagulation INR (0.8 - 1.2) 1.2 Hematology WBC (4.5 - 11.5 K/uL) 35.8 RBC (4.50 - 5.90 M/uL) 2.94 Hgb (13.5 - 17.5 gm/dL) 9.8 Hct (41.0 - 53.0 %) 30.6 MCV (80 - 100 fL) 104 MCH (26 - 34 pg) 33 RDW (11.6 - 14.8 %) 22.2 Neut % (Auto) (50 - 75 %) Pending Lymph % (Auto) (25 - 40 %) Pending [place] % (Auto) (3 - 14 %) Pending Band Neutrophils % (0 - 8 %) Pending Plt Count, EDTA (150 - 400 K/uL) 169 PUBS MCHC (31 - 37 g/dL) 32 Microbiology Date/Time Procedure - Status Source Growth 01/13 UNK Escherichia coli Shiga Toxins EIA - ORD STOOL 01/13 UNK Campylobacter Culture - ORD STOOL 01/13 UNK Salmonella/Shigella Culture - ORD STOOL 01/13 UNK Stool Leukocytes - ORD STOOL Assessment and Plan Problem List 1. Alcoholic hepatitis Qualifiers Ascites presence: without ascites Qualified Code: K70.10 - Alcoholic hepatitis without ascites Plan - liver function enzymes are starting to trend downwards - will continue to trend - will continue with prednisolone at current dose - no further intervention needed 2. Leukocytosis Plan - pts leukocytosis is not improving - will obtain tagged wbc scan tomorrow - no need for antibiotics or fluid culture at the moment 3. Cirrhosis Plan - US evidence of cirrhosis - some degreee of ascites however nothing significant enough to tap - no evidence of peritonitis 4. Knee pain Plan - pt has persistent knee and hip pain from osteoarthritis and avascular necrosis respectively - will treat symptomatically
[2017-01-13 10:05] VITALS: BP 112/70
[2017-01-13 14:35] VITALS: BP 113/63
[2017-01-13 19:29] VITALS: BP 114/80
[2017-01-13 22:51] VITALS: BP 112/70
[2017-01-14] VITALS (7 sets, daily range): BP systolic 98–112; BP diastolic 61–72
--- NOTE | 2017-01-14 16:50 | Progress Note ---
Subjective General Patient seen and examined. Patient is improving steadily. Will monitor for any further changes. Constitutional Denies: Fever, Chills, Sweats, Weakness, Malaise, Other. Eyes Other (jaundice ). ENT Denies: Ear Pain, Ear Discharge, Nose Pain, Nasal Discharge, Nasal Congestion, Mouth Pain, Mouth Swelling, Throat Pain, Throat Swelling, Other. Respiratory Denies: Cough, Dry, SOB w/exertion, Wheezing, Hemoptysis, Pleuritic Pain, Sputum , Other. Cardiovascular Denies: Chest Pain, Palpitations, Orthopnea, PND, Edema, Light-headedness, Other. Gastrointestinal Denies: Nausea, Vomiting, Abdominal Pain, Diarrhea, Constipation, Melena, Hematochezia, Other. Genitourinary Denies: Dysuria, Frequency, Incontinence, Hematuria, Retention, Other. Musculoskeletal Denies: Neck Pain, Shoulder Pain, Arm Pain, Back Pain, Hand Pain, Leg Pain, Foot Pain, Other. Skin Denies: Rash, Lesions, Jaundice, Bruising, Other. Physical Exam Vital Signs / I&Os Vital Signs Date Time Temp Pulse Resp B/P Pulse O2 O2 Flow FiO2 Ox Delivery Rate 01/14 1557 0.0 01/14 1500 98.4 79 18 102/63 96 Room Air 01/14 1057 98.2 76 22 103/64 94 Room Air 0.0 01/14 0656 97.5 81 24 109/69 96 Room Air 0.0 01/14 0302 98.4 71 16 98/61 99 Room Air 0.0 01/13 2251 98.2 77 18 112/70 95 Room Air 01/13 2020 Room Air 01/13 1929 98.1 87 18 114/80 98 Room Air I&O 01/13 0800 01/13 1600 01/14 0000 Intake Total 1050 480 810 Output Total 325 425 Balance 725 55 810 General Appearance Alert, Oriented X3, No acute distress HEENT Atraumatic, PERRLA, Moist mucous membranes Lungs Clear to auscultation Cardiovascular Regular rate and rhythm, No murmurs, gallops, rubs Abdomen Soft, - some umblicial area tenderness otherwise negative Extremities No edema, Normal pulses, No tenderness Skin No Breakdown Neurological Normal speech, Normal tone LAB Results Laboratory Tests 01/14 01/14 0510 0510 Chemistry Plasma Sodium (136 - 145 mmol/L) 137 Plasma Potassium (3.5 - 5.1 mmol/L) 4.5 Plasma Chloride (98 - 107 mmol/L) 108 CO2 (Enzymatic) (21 - 32 mmol/L) 19 BUN (7 - 18 mg/dL) 35 Creatinine (0.6 - 1.3 mg/dL) 1.0 Est GFR ( Amer) (mL/min) >60 Est GFR (Non-Af Amer) (mL/min) >60 Glucose (70 - 110 mg/dL) 91 Plasma Calcium (8.5 - 10.1 mg/dL) 7.8 Total Bilirubin (0.0 - 1.0 mg/dL) 5.7 AST (15 - 37 U/L) 254 ALT (12 - 78 U/L) 210 Alkaline Phosphatase (46 - 116 U/L) 155 Total Protein (6.4 - 8.2 g/dL) 5.1 Albumin (3.3 - 5.0 g/dL) 1.5 Procalcitonin (0 - 0.5 ng/mL) 2.1 Hematology WBC (4.5 - 11.5 K/uL) 30.5 RBC (4.50 - 5.90 M/uL) 2.87 Hgb (13.5 - 17.5 gm/dL) 9.6 Hct (41.0 - 53.0 %) 29.8 MCV (80 - 100 fL) 104 MCH (26 - 34 pg) 34 RDW (11.6 - 14.8 %) 22.1 Neut % (Auto) (50 - 75 %) 52 Lymph % (Auto) (25 - 40 %) 6 [place] % (Auto) (3 - 14 %) 1 Eos % (Auto) (0 - 4 %) 0 Baso % (Auto) (0 - 2 %) 1 Band Neutrophils % (0 - 8 %) 40 Metamyelocytes % (0 - 1 %) 0 Myelocytes (0 - 1 %) 0 Other Cell Type 0 Plt Count, EDTA (150 - 400 K/uL) 166 Hypochromic-Microcytic 2+ Anisocytosis (manual) 2+ Target Cells 1+ PUBS MCHC (31 - 37 g/dL) 32 Assessment and Plan Problem List 1. Alcoholic hepatitis Qualifiers Ascites presence: without ascites Qualified Code: K70.10 - Alcoholic hepatitis without ascites Plan - lfts are trending downward - when patient is less symptomatic will plan for discharge - will stop prednisolone once lfts go below 100 2. Anemia Plan - stable - will continue to trend 3. Knee pain Plan - pain control is working - continue to work with physical therapy 4. Leukocytosis Plan - will obtain results of tagged wbc cell scan today - will follow and treat accordingly
[2017-01-15 02:45] VITALS: BP 126/80
[2017-01-15 06:29] VITALS: BP 121/77
[2017-01-15 13:04] VITALS: BP 126/85
--- NOTE | 2017-01-15 13:40 | DIAGNOSTIC IMAGING REPORT ---
PROCEDURE: NM WHITE BLOOD CELL-WHOLE BODY INDICATION: Elevated white blood count (30,000). Liver disease. Assess for infectious source. TECHNIQUE: 537 microcuries of Indium-111 autologously labeled WBCs injected intravenously. Four hour and 22 hour whole body images were obtained in anterior and posterior projections. COMPARISON: Comparison is made to CT abdomen and pelvis on 01/12/2017 and chest x-ray (01/10/2017). FINDINGS: There is marked photopenia in the region of the liver compatible with intrinsic liver disease. The rest of the uptake is normal and there is no evidence of infectious source. Injection site located over left upper arm. IMPRESSION: 1. Markedly diminished uptake of the liver compatible with intrinsic liver disease (previously documented). 2. Otherwise negative nuclear medicine white blood cell study. No evidence of infectious source. 3. Findings discussed with Dr. Justin Alfonso.
[2017-01-15 15:20] VITALS: BP 108/74
--- NOTE | 2017-01-15 17:30 | Progress Note ---
Subjective General Patient seen and examined. Patient is improving slowly. Patient has no problems at the moment. Tagged wbc scan results should happen today. Constitutional Denies: Fever, Chills, Sweats, Weakness, Malaise, Other. Eyes Denies: Pain, Vision Change, Conjunctival Inflammation, Eyelid Inflammation, Redness, Other. Respiratory Denies: Cough, Dry, SOB w/exertion, Wheezing, Hemoptysis, Pleuritic Pain, Sputum , Other. Cardiovascular Denies: Chest Pain, Palpitations, Orthopnea, PND, Edema, Light-headedness, Other. Gastrointestinal Denies: Nausea, Vomiting, Abdominal Pain, Diarrhea, Constipation, Melena, Hematochezia, Other. Genitourinary Denies: Dysuria, Frequency, Incontinence, Hematuria, Retention, Other. Musculoskeletal Denies: Neck Pain, Shoulder Pain, Arm Pain, Back Pain, Hand Pain, Leg Pain, Foot Pain, Other. Skin Jaundice. Denies: Rash, Lesions, Bruising, Other. Neurological Denies: Weakness, Numbness, Incoordination, Change in speech, Confusion, Seizures, Other. Physical Exam Vital Signs / I&Os Vital Signs Date Time Temp Pulse Resp B/P Pulse O2 O2 Flow FiO2 Ox Delivery Rate 01/15 1520 98.8 80 16 108/74 98 Room Air 0.0 01/15 1304 97.9 94 18 126/85 99 01/15 0818 96 01/15 0629 97.5 87 20 121/77 96 Room Air 0.0 01/15 0245 98.1 86 16 126/80 96 Room Air 01/15 0227 0.0 01/14 2246 97.7 88 18 112/67 99 Room Air 01/14 2059 91 105/71 99 01/14 1927 97.9 01/14 1839 90 18 112/72 99 I&O 01/14 0800 01/14 1600 01/15 0000 Intake Total 770 860 Output Total 525 275 550 Balance 245 -275 310 General Appearance Alert, Oriented X3 HEENT Atraumatic, PERRLA, - slight scleral icterus Lungs Clear to auscultation, Normal air movement Neck Supple, No JVD, No masses, No thyromegaly Cardiovascular Regular rate and rhythm, Normal S1 and S2, No murmurs, gallops, rubs Abdomen Soft, No tenderness, No guarding Extremities No edema, Normal pulses, Strength = upper ext's, Strength = lower ext's Skin - jaundiced Neurological Normal speech, Normal tone, Cranial nerves intact, Strength 5/5 x4 ext's, No lateralizing signs Psych/Mental Status Mood normal Assessment and Plan Problem List 1. Leukocytosis Plan - no reasoning behing pts leukocytosis - will need to follow up on patients tagged wbc scan - stool studies are coming back negative - will treat diarrhea with loperamide 2. Alcoholic hepatitis Qualifiers Ascites presence: without ascites Qualified Code: K70.10 - Alcoholic hepatitis without ascites Plan - will continue with prednisolone once bilirubin begins to normalize - will continue to monitor lfts 3. Knee pain Plan - controlled
[2017-01-15 18:23] VITALS: BP 111/70
[2017-01-15 21:54] VITALS: BP 116/72
[2017-01-16 02:01] VITALS: BP 106/67
[2017-01-16 06:57] VITALS: BP 122/77
--- NOTE | 2017-01-16 07:48 | Progress Note ---
Subjective General Note Date: January 16, 2017 Admission Date: January 01, 2017 Hospital Day: 16 PCP: Satish Lloyd Status: Inpatient Advanced Directive: FULL CODE Room: 208 Brief History: The patient is a 36-year-old white male with a significant past medical history of alcohol abuse/dependence, recurrent upper GI bleed, cirrhosis, who presented to [facility] emergency department on the day of admission secondary to complaints of hematemesis and melena. [facility] ER evaluation was consistent with upper GI bleed with associated anemia and hypotension. Secondary to the above, the patient was admitted by J Carlos Hobson M.D. with consultation by Dr. Bala Chan (general surgery) for further evaluation and treatment. For other history present illness, past medical history, family history, social history, review of systems, and admission physical examination please see the patient's history and physical examination and ER visit note in the patient's medical record. Subjective: The patient states she is doing much better today. Eating well. No signs of alcohol withdrawal syndrome. Patient requests: None Medications and Allergies Medications Current Medications Sig/Jamarcus Start time Last Medication Dose Route Stop Time Status Admin Loperamide HCl 2 MG PRN PRN 01/15 1730 AC PO Rifaximin 550 MG BID 01/14 0900 AC 01/15 PO 2158 Gabapentin 600 MG TID 01/10 1400 AC 01/16 PO 0506 Lorazepam 0.5 MG Q4H PRN 01/10 1230 AC 01/16 PO 0258 Furosemide 20 MG DIUB 01/10 1115 AC 01/16 PO 0506 Nystatin See Dose BID 01/10 1057 AC 01/15 Insts (1) TOP 2200 Spironolactone 25 MG BID 01/06 09 AC 01/15 PO 2158 Prednisolone 40 MG DAILY 01/04 1750 AC 01/15 PO 0833 Pantoprazole Sodium 40 MG PPIBID 01/04 1600 AC 01/16 Sesquihydrate PO 0506 Metoprolol Tartrate 12.5 MG BID 01/04 09 AC 01/15 PO 2158 Magnesium Chloride 535 MG TID 01/03 2200 AC 01/16 PO 0506 Oxycodone HCl 5 MG Q4HR PRN 01/03 2115 AC 01/16 PO 0258 Multivit/ 1 TAB DAILY 01/03 09 AC 01/15 Folic Acid/Iron PO 0832 Thiamine HCl 100 MG DAILY 01/03 0900 AC 01/15 PO 0832 Diazepam 5 MG PRN PRN 01/02 0330 AC IV Al Hydrox/Mg Hydrox/ 15 ML Q1H PRN 01/01 2215 AC Simethicone PO Atropine Sulfate 0.5 MG Q3MIN PRN 01/01 2215 AC IV Lidocaine HCl See Dose ONCE PRN 01/01 2215 AC Insts (2) IV Magnesium Hydroxide 10 ML DAILY PRN 01/01 2215 AC PO Morphine Sulfate 2 MG Q3M PRN 01/01 2215 AC 01/02 IV 1834 Nitroglycerin 0.4 MG Q5M PRN 01/01 2215 AC SL Ondansetron HCl 4 MG Q6H PRN 01/01 2215 AC 01/10 IV 1947 Dose Instructions: (1)Nystatin: TO AFFECTED AREA (2)Lidocaine HCl: 1.5 MG/KG Allergies Coded Allergies: NKA (05/19/16) Physical Exam Vital Signs / I&Os Vital Signs Date Time Temp Pulse Resp B/P Pulse O2 O2 Flow FiO2 Ox Delivery Rate 01/16 0657 97.9 76 20 122/77 100 Room Air 01/16 0201 97.9 78 18 106/67 97 01/15 2154 97.9 84 18 116/72 97 01/15 1954 Room Air 01/15 1823 97.9 88 18 111/70 99 01/15 1520 98.8 80 16 108/74 98 Room Air 0.0 01/15 1304 97.9 94 18 126/85 99 01/15 0818 96 I&O 01/16 0000 01/15 1600 01/15 0800 Intake Total 360 340 480 Output Total 575 600 400 Balance -215 -260 80 General Appearance Alert, Oriented X3, Cooperative, No acute distress Lungs Clear to auscultation, Normal air movement Cardiovascular Regular rate and rhythm, Normal S1 and S2 Abdomen Normal bowel sounds, Soft, No tenderness Extremities No cyanosis, No clubbing, Edema unchanged Neurological Cranial nerves intact, No lateralizing signs Psych/Mental Status Mental status normal, Mood normal LAB Results Laboratory Tests 01/16 0503 Chemistry Plasma Sodium (136 - 145 mmol/L) 137 Plasma Potassium (3.5 - 5.1 mmol/L) 4.3 Plasma Chloride (98 - 107 mmol/L) 108 CO2 (Enzymatic) (21 - 32 mmol/L) 22 BUN (7 - 18 mg/dL) 34 Creatinine (0.6 - 1.3 mg/dL) 1.1 Est GFR ( Amer) (mL/min) >60 Est GFR (Non-Af Amer) (mL/min) >60 Glucose (70 - 110 mg/dL) 98 Plasma Calcium (8.5 - 10.1 mg/dL) 8.0 Total Bilirubin (0.0 - 1.0 mg/dL) 4.1 AST (15 - 37 U/L) 241 ALT (12 - 78 U/L) 220 Alkaline Phosphatase (46 - 116 U/L) 150 Total Protein (6.4 - 8.2 g/dL) 5.1 Albumin (3.3 - 5.0 g/dL) 1.5 Coagulation INR (0.8 - 1.2) 1.2 Hematology WBC (4.5 - 11.5 K/uL) 29.7 RBC (4.50 - 5.90 M/uL) 2.74 Hgb (13.5 - 17.5 gm/dL) 9.5 Hct (41.0 - 53.0 %) 28.4 MCV (80 - 100 fL) 104 MCH (26 - 34 pg) 35 RDW (11.6 - 14.8 %) 22.0 Neut % (Auto) (50 - 75 %) Pending Lymph % (Auto) (25 - 40 %) Pending [place] % (Auto) (3 - 14 %) Pending Band Neutrophils % (0 - 8 %) Pending Plt Count, EDTA (150 - 400 K/uL) 164 PUBS MCHC (31 - 37 g/dL) 34 Imaging White Blood Cell Scan IMPRESSION: 1. Markedly diminished uptake of the liver compatible with intrinsic liver disease (previously documented). 2. Otherwise negative nuclear medicine white blood cell study. No evidence of infectious source. 3. Findings discussed with Dr. Justin Alfonso. Dictated by: GABRIELLE LEYVA MD D: CLOTILDE;01/15/17 1340 Assessment and Plan Problem List 1. Upper GI bleeding Plan -Resolved -Continue present therapy -H&H stable at 9.5/28.4 2. Alcoholic hepatitis Qualifiers Ascites presence: without ascites Qualified Code: K70.10 - Alcoholic hepatitis without ascites Plan -Patient with findings of alcoholic hepatitis. -Transaminases continue to improve -Bilirubin improved -Emphasize need for no alcohol consumption post hospitalization -Continue prednisolone -Plan discharge in a.m. 3. Acute blood loss anemia Plan -See above -No evidence of ongoing GI bleeding -Monitor 4. Cirrhosis Plan -Patient with findings of cirrhosis -No further evaluation at this time -Low-salt diet -Alcohol abstinence -Increased diuretic therapy secondary to lower extremity edema -Monitor 5. Alcoholism Plan -See above -Encourage enrollment in outpatient treatment program -Discharge planning to discuss outpatient treatment with patient 6. Coagulopathy Status Acute Onset Date Unknown Plan -Normalized -INR 1.2 Current status: Fair, improved Anticipated discharge date: Anticipated discharge in 1-2 days Anticipated discharge placement: Home with alcohol treatment program Patient care time: Time spent in chart review, patient interview, physical exam, CPOE, and care documentation: 35 minutes Visit to patient today: 1 Complexity of care: High E&M Codes Rounding: Inpt-Moderate/[id number]
[2017-01-16 11:01] VITALS: BP 106/65
[2017-01-16 14:22] VITALS: BP 103/67
[2017-01-16 18:15] VITALS: BP 119/81
[2017-01-16 22:34] VITALS: BP 112/65
[2017-01-17 02:12] VITALS: BP 113/74
[2017-01-17 06:09] VITALS: BP 109/56
--- NOTE | 2017-01-17 07:35 | Progress Note ---
Subjective General Note Date: January 17, 2017 Admission Date: January 01, 2017 Hospital Day: 17 PCP: Satish Lloyd Status: Inpatient Advanced Directive: FULL CODE Room: 208 Brief History: The patient is a 36-year-old white male with a significant past medical history of alcohol abuse/dependence, recurrent upper GI bleed, cirrhosis, who presented to [facility] emergency department on the day of admission secondary to complaints of hematemesis and melena. [facility] ER evaluation was consistent with upper GI bleed with associated anemia and hypotension. Secondary to the above, the patient was admitted by J Carlos Hobson M.D. with consultation by Dr. Bala Chan (general surgery) for further evaluation and treatment. For other history present illness, past medical history, family history, social history, review of systems, and admission physical examination please see the patient's history and physical examination and ER visit note in the patient's medical record. Subjective: The patient states he is doing better today. Eating well. Persistent lower extremity edema but increasing urinary output change in diuretics. Patient requests: None Medications and Allergies Medications Current Medications Sig/Jamarcus Start time Last Medication Dose Route Stop Time Status Admin Furosemide 40 MG DIUB 01/16 1800 AC 01/17 PO 0533 Loperamide HCl 2 MG PRN PRN 01/15 1730 AC PO Rifaximin 550 MG BID 01/14 09 AC 01/16 PO 2058 Gabapentin 600 MG TID 01/10 1400 AC 01/17 PO 0533 Lorazepam 0.5 MG Q4H PRN 01/10 1230 AC 01/17 PO 0218 Nystatin See Dose BID 01/10 1057 AC 01/16 Insts (1) TOP 2058 Spironolactone 25 MG BID 01/06 0900 AC 01/16 PO 205 Prednisolone 40 MG DAILY 01/04 1750 AC 01/16 PO 0815 Pantoprazole Sodium 40 MG PPIBID 01/04 1600 AC 01/17 Sesquihydrate PO 0533 Metoprolol Tartrate 12.5 MG BID 01/04 0900 AC 01/16 PO 2100 Magnesium Chloride 535 MG TID 01/03 2200 AC 01/17 PO 0533 Oxycodone HCl 5 MG Q4HR PRN 01/03 2115 AC 01/17 PO 0726 Multivit/ 1 TAB DAILY 01/03 09 AC 01/16 Folic Acid/Iron PO 0810 Thiamine HCl 100 MG DAILY 01/03 0900 AC 01/16 PO 0810 Diazepam 5 MG PRN PRN 01/02 0330 AC IV Al Hydrox/Mg Hydrox/ 15 ML Q1H PRN 01/01 2215 AC Simethicone PO Atropine Sulfate 0.5 MG Q3MIN PRN 01/01 2215 AC IV Lidocaine HCl See Dose ONCE PRN 01/01 2215 AC Insts (2) IV Magnesium Hydroxide 10 ML DAILY PRN 01/01 2215 AC PO Morphine Sulfate 2 MG Q3M PRN 01/01 2215 AC 01/02 IV 1834 Nitroglycerin 0.4 MG Q5M PRN 01/01 2215 AC SL Ondansetron HCl 4 MG Q6H PRN 01/01 2215 AC 01/10 IV 1947 Dose Instructions: (1)Nystatin: TO AFFECTED AREA (2)Lidocaine HCl: 1.5 MG/KG Allergies Coded Allergies: NKA (05/19/16) Physical Exam Vital Signs / I&Os Vital Signs Date Time Temp Pulse Resp B/P Pulse O2 O2 Flow FiO2 Ox Delivery Rate 01/17 0609 98.1 90 20 109/56 100 Room Air 01/17 0212 98.2 93 18 113/74 100 Room Air 01/16 2234 97.5 78 22 112/65 98 Room Air 01/16 1955 Room Air 01/16 1815 98.2 95 20 119/81 98 Room Air 01/16 1422 97.9 88 20 103/67 95 Room Air 01/16 1101 98.4 88 18 106/65 97 Room Air I&O 01/17 0000 01/16 1600 01/16 0800 Intake Total 200 600 500 Output Total 350 200 800 Balance -150 400 -300 General Appearance Alert, Oriented X3, Cooperative, No acute distress Lungs Clear to auscultation, Normal air movement Cardiovascular Regular rate and rhythm, Normal S1 and S2 Abdomen Normal bowel sounds, Soft, No tenderness Extremities No cyanosis, No clubbing, edema unchanged lower extremities Neurological Cranial nerves intact, No lateralizing signs Psych/Mental Status Mental status normal, Mood normal LAB Results Laboratory Tests 01/17 600 Chemistry Plasma Sodium (136 - 145 mmol/L) 138 Plasma Potassium (3.5 - 5.1 mmol/L) 4.4 Plasma Chloride (98 - 107 mmol/L) 108 CO2 (Enzymatic) (21 - 32 mmol/L) 22 BUN (7 - 18 mg/dL) 34 Creatinine (0.6 - 1.3 mg/dL) 1.1 Est GFR ( Amer) (mL/min) >60 Est GFR (Non-Af Amer) (mL/min) >60 Glucose (70 - 110 mg/dL) 82 Plasma Calcium (8.5 - 10.1 mg/dL) 7.9 Total Bilirubin (0.0 - 1.0 mg/dL) 3.8 AST (15 - 37 U/L) 257 ALT (12 - 78 U/L) 237 Alkaline Phosphatase (46 - 116 U/L) 142 Total Protein (6.4 - 8.2 g/dL) 4.8 Albumin (3.3 - 5.0 g/dL) 1.6 Hematology WBC (4.5 - 11.5 K/uL) 29.3 RBC (4.50 - 5.90 M/uL) 2.69 Hgb (13.5 - 17.5 gm/dL) 9.2 Hct (41.0 - 53.0 %) 27.9 MCV (80 - 100 fL) 104 MCH (26 - 34 pg) 34 RDW (11.6 - 14.8 %) 21.4 Neut % (Auto) (50 - 75 %) 63 Lymph % (Auto) (25 - 40 %) 11 [place] % (Auto) (3 - 14 %) 2 Eos % (Auto) (0 - 4 %) 0 Baso % (Auto) (0 - 2 %) 0 Band Neutrophils % (0 - 8 %) 24 Metamyelocytes % (0 - 1 %) 0 Myelocytes (0 - 1 %) 0 Other Cell Type 0 Plt Count, EDTA (150 - 400 K/uL) 167 Hypochromic-Microcytic 1+ Anisocytosis (manual) 1+ Target Cells 1+ PUBS MCHC (31 - 37 g/dL) 33 Assessment and Plan Problem List 1. Upper GI bleeding Plan -Resolved -H&H stable 2. Alcoholic hepatitis Qualifiers Ascites presence: without ascites Qualified Code: K70.10 - Alcoholic hepatitis without ascites Plan -Continued improvement in status -Bilirubin improved. -Transaminases trending down -Continue prednisone 40 mg by mouth daily -Plan discharge in a.m. with continued improvement 3. Alcoholism Plan -Encouraged patient to enroll in treatment program post hospitalization -No signs of alcohol withdrawal syndrome -Stressed alcohol abstinence post discharge 4. Acute blood loss anemia Plan -See above -Stable -No signs of ongoing GI bleeding 5. Cirrhosis Plan -Status unchanged -Monitor -I've encouraged patient to pursue a alcohol abstinence program post discharge 6. Coagulopathy Status Acute Onset Date Unknown Plan -Resolved 7. Edema Plan -Persistent edema -Improved urine output -Continue IV Lasix and Aldactone -Monitor 8. Leukocytosis Plan -Patient with persistent leukocytosis without clear signs of infection -Most likely secondary to chronic steroid usage -Monitor Current status: Fair, stable Anticipated discharge date: Anticipated discharge in a.m. Anticipated discharge placement: Home Patient care time: Time spent in chart review, patient interview, physical exam, CPOE, and care documentation: 25 minutes Visit to patient today: 1 Complexity of care: Moderate E&M Codes Rounding: Inpt-Moderate/[id number]
[2017-01-17 14:30] VITALS: BP 109/61
[2017-01-17 18:37] VITALS: BP 123/75
[2017-01-17 22:28] VITALS: BP 112/73
[2017-01-18 03:17] VITALS: BP 115/73
[2017-01-18 06:52] VITALS: BP 110/65
--- NOTE | 2017-01-18 07:50 | Progress Note ---
Subjective General Note Date: January 18, 2017 Admission Date: January 01, 2017 Hospital Day: 18 PCP: Satish Lloyd Status: Inpatient Advanced Directive: FULL CODE Room: 208 Brief History: The patient is a 36-year-old white male with a significant past medical history of alcohol abuse/dependence, recurrent upper GI bleed, cirrhosis, who presented to [facility] emergency department on the day of admission secondary to complaints of hematemesis and melena. [facility] ER evaluation was consistent with upper GI bleed with associated anemia and hypotension. Secondary to the above, the patient was admitted by J Carlos Hobson M.D. with consultation by Dr. Bala Chan (general surgery) for further evaluation and treatment. For other history present illness, past medical history, family history, social history, review of systems, and admission physical examination please see the patient's history and physical examination and ER visit note in the patient's medical record. Subjective: The patient states status continues to improve. Ready for discharge at this time. Patient requests: None Medications and Allergies Medications Current Medications Sig/Jamarcus Start time Last Medication Dose Route Stop Time Status Admin Furosemide 40 MG DIUB 01/16 1800 AC 01/18 PO 0518 Loperamide HCl 2 MG PRN PRN 01/15 1730 AC PO Rifaximin 550 MG BID 01/14 09 AC 01/17 PO 2132 Gabapentin 600 MG TID 01/10 1400 AC 01/18 PO 0518 Lorazepam 0.5 MG Q4H PRN 01/10 1230 AC 01/18 PO 0112 Nystatin See Dose BID 01/10 1057 AC 01/17 Insts (1) TOP 2132 Spironolactone 25 MG BID 01/06 09 AC 01/17 PO 2132 Prednisolone 40 MG DAILY 01/04 1750 AC 01/17 PO 0820 Pantoprazole Sodium 40 MG PPIBID 01/04 1600 AC 01/18 Sesquihydrate PO 0518 Metoprolol Tartrate 12.5 MG BID 01/04 09 AC 01/17 PO 2133 Magnesium Chloride 535 MG TID 01/03 2200 AC 01/18 PO 0518 Oxycodone HCl 5 MG Q4HR PRN 01/03 2115 AC 01/18 PO 0112 Multivit/ 1 TAB DAILY 01/03 09 AC 01/17 Folic Acid/Iron PO 08 Thiamine HCl 100 MG DAILY 01/03 900 AC 01/17 PO 0820 Diazepam 5 MG PRN PRN 01/02 0330 AC IV Al Hydrox/Mg Hydrox/ 15 ML Q1H PRN 01/01 2215 AC Simethicone PO Atropine Sulfate 0.5 MG Q3MIN PRN 01/01 2215 AC IV Lidocaine HCl See Dose ONCE PRN 01/01 2215 AC Insts (2) IV Magnesium Hydroxide 10 ML DAILY PRN 01/01 2215 AC PO Morphine Sulfate 2 MG Q3M PRN 01/01 2215 AC 01/02 IV 1834 Nitroglycerin 0.4 MG Q5M PRN 01/01 2215 AC SL Ondansetron HCl 4 MG Q6H PRN 01/01 2215 AC 01/10 IV 1947 Dose Instructions: (1)Nystatin: TO AFFECTED AREA (2)Lidocaine HCl: 1.5 MG/KG Allergies Coded Allergies: NKA (05/19/16) Physical Exam Vital Signs / I&Os Vital Signs Date Time Temp Pulse Resp B/P Pulse O2 O2 Flow FiO2 Ox Delivery Rate 01/18 0652 97.9 88 20 110/65 98 Room Air 0.0 01/18 0317 98.2 91 20 115/73 100 Room Air 01/18 0114 Room Air 0.0 01/17 2228 98.2 81 18 112/73 100 Room Air 01/17 1837 98.4 100 18 123/75 99 Room Air 01/17 1430 98.4 85 18 109/61 96 Room Air 01/17 1330 Room Air 0.0 01/17 0815 Room Air 0.0 I&O 01/18 0000 01/17 1600 01/17 0800 Intake Total 825 1260 1040 Output Total 401 1455 975 Balance 424 -195 65 General Appearance Alert, Oriented X3, Cooperative, No acute distress Lungs Clear to auscultation, Normal air movement Cardiovascular Regular rate and rhythm, Normal S1 and S2 Abdomen Normal bowel sounds, Soft, No tenderness Extremities No cyanosis, No clubbing, Edema Improved Lower Extremities- Persistent Neurological Cranial nerves intact, No lateralizing signs Psych/Mental Status Mental status normal, Mood normal LAB Results Laboratory Tests 01/18 01/18 0640 0640 Chemistry Plasma Sodium (136 - 145 mmol/L) 137 Plasma Potassium (3.5 - 5.1 mmol/L) 3.9 Plasma Chloride (98 - 107 mmol/L) 106 CO2 (Enzymatic) (21 - 32 mmol/L) 22 BUN (7 - 18 mg/dL) 33 Creatinine (0.6 - 1.3 mg/dL) 1.0 Est GFR ( Amer) (mL/min) >60 Est GFR (Non-Af Amer) (mL/min) >60 Glucose (70 - 110 mg/dL) 86 Plasma Calcium (8.5 - 10.1 mg/dL) 8.0 Total Bilirubin (0.0 - 1.0 mg/dL) 3.5 AST (15 - 37 U/L) 230 ALT (12 - 78 U/L) 241 Alkaline Phosphatase (46 - 116 U/L) 139 Ammonia (11 - 32 umol/L) 20 Total Protein (6.4 - 8.2 g/dL) 5.3 Albumin (3.3 - 5.0 g/dL) 1.6 Hematology WBC (4.5 - 11.5 K/uL) 29.8 RBC (4.50 - 5.90 M/uL) 2.78 Hgb (13.5 - 17.5 gm/dL) 9.5 Hct (41.0 - 53.0 %) 28.9 MCV (80 - 100 fL) 104 MCH (26 - 34 pg) 34 RDW (11.6 - 14.8 %) 21.8 Neut % (Auto) (50 - 75 %) Pending Lymph % (Auto) (25 - 40 %) Pending [place] % (Auto) (3 - 14 %) Pending Band Neutrophils % (0 - 8 %) Pending Plt Count, EDTA (150 - 400 K/uL) 174 PUBS MCHC (31 - 37 g/dL) 33 Assessment and Plan Problem List 1. Upper GI bleeding Plan -Resolved 2. Alcoholic hepatitis Qualifiers Ascites presence: without ascites Qualified Code: K70.10 - Alcoholic hepatitis without ascites Plan -Improving -Bilirubin, Transaminases Improving -Continue Methylprednisolone -Outpatient Follow-Up with PCP -See Discharge Instructions 3. Alcoholism Plan -Encourage Rehabilitation Program 4. Acute blood loss anemia Plan -Stable -No Ongoing Blood Loss 5. Cirrhosis Plan -Patient with Alcohol-induced Cirrhosis -Encouraged Alcohol Abstinence Program -Encourage Enrollment in Alcohol Treatment Post Discharge 6. Coagulopathy Status Acute Onset Date Unknown Plan -Stable 7. Edema Plan -Improved -Continue Diuretic Therapy -Low Salt Diet 8. Leukocytosis Plan -Stable -related to Methylprednisolone -No signs of Infectious Process Current status: Fair, improved Anticipated discharge date: Today Anticipated discharge placement: Home Patient care time: Time spent in chart review, patient interview, physical exam, CPOE, and care documentation: Greater than 30 minutes Visit to patient today: 1 Complexity of care: Moderate For other recommendations regarding discharge diet, activity, followup, and discharge medications please see the patient's discharge instructions. Greater than 30 min. was spent in the patient's discharge preparation including discharge interview and physical examination, progress note, discharge instructions, and discharge summary E&M Codes Discharge: Inpt >30 min spent/[id number]
--- NOTE | 2017-01-18 07:53 | Discharge Summary ---
Discharge Summary Report Admit Date 01/01/17 Discharge Date 01/18/17 Admission Diagnosis 1. Upper GI bleed 2. Alcoholic hepatitis 3. Acute blood loss anemia 4. Alcoholism 5. Cirrhosis 6. Coagulopathy 7. Hypotension Discharge Diagnosis 1. Upper GI bleed 2. Alcoholic hepatitis 3. Acute blood loss anemia 4. Alcoholism 5. Cirrhosis 6. Coagulopathy Brief History The patient is a 36-year-old white male with a significant past medical history of alcohol abuse/dependence, recurrent upper GI bleed, cirrhosis, who presented to [facility] emergency department on the day of admission secondary to complaints of hematemesis and melena. [facility] ER evaluation was consistent with upper GI bleed with associated anemia and hypotension. Secondary to the above, the patient was admitted by J Carlos Hobson M.D. with consultation by Dr. Bala Cahn (general surgery) for further evaluation and treatment. For other history present illness, past medical history, family history, social history, review of systems, and admission physical examination please see the patient's history and physical examination and ER visit note in the patient's medical record. Hospital Course The following problems and their management were noted during the patient's hospitalization: 1. Upper GI bleed The patient presented with history of upper GI bleed. Findings were consistent with erosive esophagitis. No signs of varices. The patient was treated with PPI with good control of symptoms. No evidence of ongoing bleeding at time of discharge. H&H stable. 2. Alcoholic hepatitis The patient was noted on admission to have findings of hepatitis. Findings were consistent with alcoholic hepatitis. He was placed on methylprednisolone 40 mg by mouth daily. Hip persistent hyperbilirubinemia and transaminitis but both of these were improving at the time of discharge and much better than their peak levels. He was discharged on prednisone 42.5 mg by mouth daily. Continue for a full month treatment with tapering of steroids at the end of this course. Outpatient follow-up with PCP/gastroenterology as necessary. 3. Acute blood loss anemia The patient had acute blood loss anemia. This was stable at the time of discharge. No evidence of ongoing bleeding. 4. Alcoholism The patient has a history of alcoholism. He has had multiple admissions for upper GI bleeding and alcohol withdrawal syndrome. He was encouraged to follow up with alcohol treatment program post hospitalization. He is aware of the severe health risk of ongoing alcohol consumption. 5. Cirrhosis The patient has findings of cirrhosis. He was placed on low-salt diet. Please see discharge medications. Outpatient follow up with PCP. 6. Coagulopathy The patient had mild coagulopathy. This was stable at the time of discharge with no signs of ongoing bleeding. Lab/Imaging Laboratory Tests 01/18 01/18 0640 [id number] Chemistry Plasma Sodium (136 - 145 mmol/L) 137 Plasma Potassium (3.5 - 5.1 mmol/L) 3.9 Plasma Chloride (98 - 107 mmol/L) 106 CO2 (Enzymatic) (21 - 32 mmol/L) 22 BUN (7 - 18 mg/dL) 33 Creatinine (0.6 - 1.3 mg/dL) 1.0 Est GFR ( Amer) (mL/min) >60 Est GFR (Non-Af Amer) (mL/min) >60 Glucose (70 - 110 mg/dL) 86 Plasma Calcium (8.5 - 10.1 mg/dL) 8.0 Total Bilirubin (0.0 - 1.0 mg/dL) 3.5 AST (15 - 37 U/L) 230 ALT (12 - 78 U/L) 241 Alkaline Phosphatase (46 - 116 U/L) 139 Ammonia (11 - 32 umol/L) 20 Total Protein (6.4 - 8.2 g/dL) 5.3 Albumin (3.3 - 5.0 g/dL) 1.6 Hematology WBC (4.5 - 11.5 K/uL) 29.8 RBC (4.50 - 5.90 M/uL) 2.78 Hgb (13.5 - 17.5 gm/dL) 9.5 Hct (41.0 - 53.0 %) 28.9 MCV (80 - 100 fL) 104 MCH (26 - 34 pg) 34 RDW (11.6 - 14.8 %) 21.8 Neut % (Auto) (50 - 75 %) Pending Lymph % (Auto) (25 - 40 %) Pending Linn % (Auto) (3 - 14 %) Pending Band Neutrophils % (0 - 8 %) Pending Plt Count, EDTA (150 - 400 K/uL) 174 PUBS MCHC (31 - 37 g/dL) 33 Discharge Instructions/Meds For other recommendations regarding discharge diet, activity, followup, and discharge medications please see the patient's discharge instructions. Discharge condition: Fair, improved Greater than 30 min. was spent in the patient's discharge preparation including discharge interview and physical examination, progress note, discharge instructions, and discharge summary The patient was interviewed and examined on the day of discharge. E&M Codes Discharge: Inpt >30 min spent/[id number]
[2017-01-18 10:26] VITALS: BP 111/67
[2017-01-18 13:58] VITALS: BP 114/75
[2017-01-18] MEDS ORDERED: XIFAXAN550 MG PO (15:16)
[2017-01-18] MEDS ORDERED: LOPRESSOR25 MG PO (15:16)
[2017-01-18] MEDS ORDERED: ROXICODONE5 MG PO (15:16)
[2017-01-18] MEDS ORDERED: GABAPENTIN300 MG PO (15:16)
[2017-01-18] MEDS ORDERED: LASIX40 MG PO (15:21)
[2017-01-18] MEDS ORDERED: VOL-TAB RX PO (15:21)
[2017-01-18] MEDS ORDERED: PREDNISOLO15 MG/5 ML PO (15:21)
[2017-01-18] MEDS ORDERED: PANTOPRAZOLE SO40 MG PO (15:21)
[2017-01-18] MEDS ORDERED: SPIRONOLACTONE25 MG PO (15:24)
--- NOTE | 2017-01-18 15:30 | Provider's Discharge Care Plan ---
Problem, Goal, Plan Problem List 1. Alcoholic hepatitis Goals: Improve disease control, Improve function, Improved health/wellness, Increase independence, Prevent disease progress Instructions: Follow up as directed, Take meds as directed, Continue prednisolone for additional 2 weeks. Have your physician taper your prednisolone after completing one month of therapy. 2. Alcoholism Goals: Improve disease control, Improve function, Improved health/wellness, Prevent disease progress Instructions: Follow up as directed, Take meds as directed, call for entrance into a alcohol rehabilitation program. No alcohol consumption in the future. 3. Cirrhosis Goals: Improve disease control, Improve function, Improved health/wellness, Prevent disease progress Instructions: Follow up as directed, Take meds as directed, no alcohol consumption. Low-salt diet. 4. Esophagitis Goals: Improve disease control, Prevent disease progress Instructions: Follow up as directed, Take meds as directed, no alcohol consumption.
[2017-01-18] MEDS ORDERED: WALKER (15:32)
[2017-01-18] MEDS ORDERED: [UNRECOGNIZED DRUG - OTHER] (15:32)
== END 2017-01-18 17:45 | disposition home or self-care (01) | DRG 243 ==
LOC: ED SRH 19:02 → TRANS SRH 21:02 → CC SRH 22:15 → ACUTE2 SRH 01-06 11:12
PROVIDERS: Surgery; ADMIT Student in an Organized Health Care Education/Training Program
PROC: 30233N1 Transfusion of Nonautologous Red Blood Cells into Peripheral Vein, Percutaneous Approach (ICD-10-PCS; 2017-01-02)
PROC: 30233N1 Transfusion of Nonautologous Red Blood Cells into Peripheral Vein, Percutaneous Approach (ICD-10-PCS; 2017-01-02)
PROC: 30233K1 Transfusion of Nonautologous Frozen Plasma into Peripheral Vein, Percutaneous Approach (ICD-10-PCS; 2017-01-02)
PROC: 30233K1 Transfusion of Nonautologous Frozen Plasma into Peripheral Vein, Percutaneous Approach (ICD-10-PCS; 2017-01-02)
PROC: 0DB48ZX Excision of Esophagogastric Junction, Via Natural or Artificial Opening Endoscopic, Diagnostic (ICD-10-PCS; principal; 2017-01-03 08:00)
DX: K20.8 Other esophagitis (principal); K22.8 Other specified diseases of esophagus; D62 Acute posthemorrhagic anemia; D68.4 Acquired coagulation factor deficiency; F10.239 Alcohol dependence with withdrawal, unspecified; K70.30 Alcoholic cirrhosis of liver without ascites; M87.9 Osteonecrosis, unspecified; K70.10 Alcoholic hepatitis without ascites; Z91.19 Patient's noncompliance with other medical treatment and regimen; I95.9 Hypotension, unspecified; E83.42 Hypomagnesemia; R60.1 Generalized edema; M17.0 Bilateral primary osteoarthritis of knee
CPT/HCPCS: 50004; 60001; 81240; 82943; 83475; 83526; 85241; 90001; 90004; 90047; 90074; 90075; 90077; 90078; 90100; 90112; 90155; 90455; 90469; 90977; 91004; 91162; 91163; 91295; 91544; 91588; 91643; 91672; 92132; 92235; 92710; 92720; 92740; 92750; 93004; 94001; 94060; 95059; 95061; 99262; 99777

== ENCOUNTER 2017-04-08 12:41 | Emergency (ER) | payer OTHER ==
[~2017-04-08 12:41] MED LIST changes: +GABAPENTIN300 MG PO; +LASIX40 MG PO; +PANTOPRAZOLE SO40 MG PO; +PREDNISOLO15 MG/5 ML PO; +ROXICODONE5 MG PO; +SPIRONOLACTONE25 MG PO; +WALKER; +XIFAXAN550 MG PO; +[UNRECOGNIZED DRUG - OTHER]
--- NOTE | 2017-04-08 15:32 | DIAGNOSTIC IMAGING REPORT ---
PROCEDURE: XR ABD SERIES 2V ABD/1V CHEST INDICATION: ABDOMINAL PAIN TECHNIQUE: AP supine and upright views with PA view chest. COMPARISON: None. FINDINGS: ABDOMEN: Bowel pattern is normal. No evidence of free air. Soft tissues and osseous structures are normal. CHEST: Atelectasis or infiltrate in the left lung base. Heart and mediastinum are normal. Thorax is normal. IMPRESSION: 1. Atelectasis left lung base
--- NOTE | 2017-04-08 17:01 | DIAGNOSTIC IMAGING REPORT ---
PROCEDURE: US VENOUS - RIGHT EXT INDICATION: SWELLING TECHNIQUE: Color Doppler duplex imaging of the deep and superficial venous system without and with compression. COMPARISON: None. FINDINGS: Study is partially limited due to body habitus. Allowing for this, deep and superficial venous system of the right lower extremity is within normal limits. There is no evidence of deep vein thrombosis or superficial thrombophlebitis. There is moderate edema of the right lower extremity. IMPRESSION: 1. Negative venous ultrasound of the right lower extremity. 2. Findings discussed with PAC. Marky
--- NOTE | 2017-04-08 17:34 | DIAGNOSTIC IMAGING REPORT ---
PROCEDURE: US ABDOMEN ULTRASOUND-LIMITED INDICATION: ASCITES TECHNIQUE: Wang scale and color Doppler sonographic images of the abdomen were obtained. COMPARISON: Comparison is made to CT abdomen and pelvis on 01/12/2017. FINDINGS: There is a [id number] amount of ascites. Gallbladder is partially contracted with mild to my thickening of the gallbladder wall (3- 5 mm) common duct is not visualized. There is heterogeneous of the liver compatible with cirrhosis. echogenicity of the pancreas is obscured by bowel gas. Right kidney is normal IMPRESSION: 1. Moderate to large amount of ascites. 2. Cirrhosis of the liver. 3. Gallbladder wall thickening is nonspecific finding and may related to low protein state or intrinsic liver disease. No evidence of gallstones.
--- NOTE | 2017-04-08 17:34 | DIAGNOSTIC IMAGING REPORT ---
PROCEDURE: US ABDOMEN ULTRASOUND-LIMITED INDICATION: ASCITES TECHNIQUE: Wang scale and color Doppler sonographic images of the abdomen were obtained. COMPARISON: Comparison is made to CT abdomen and pelvis on 01/12/2017. FINDINGS: There is a [id number] amount of ascites. Gallbladder is partially contracted with mild to my thickening of the gallbladder wall (3- 5 mm) common duct is not visualized. There is heterogeneous of the liver compatible with cirrhosis. echogenicity of the pancreas is obscured by bowel gas. Right kidney is normal IMPRESSION: 1. Moderate to large amount of ascites. 2. Cirrhosis of the liver. 3. Gallbladder wall thickening is nonspecific finding and may related to low protein state or intrinsic liver disease. No evidence of gallstones.
--- NOTE | 2017-04-08 17:42 | ED ORDER SUMMARY ---
..... Patient: HENRIK WINSTON OrderSheet [facility] VisitID: [id number] [place] [address] 37y, M Registration Date/Time: 04/08/2017 ORDER SHEET Weight: 113.3 kg (stated) Allergies: None GENERAL ORDERS: CBC w Diff Urgent (13:23 04/08/2017 EKoroleva P.A.-C) (Ack 13:24 PWeiler ER Tech1) (14:32 PWeiler ER Tech1) CMP Urgent (13:23 04/08/2017 EKoroleva P.A.-C) (Ack 13:24 PWeiler ER Tech1) (14:32 PWeiler ER Tech1) UA-Culture if indicated Urgent (13:23 04/08/2017 EKoroleva P.A.-C) (Ack 13:24 PWeiler ER Tech1) (19:00 LWhalen R.N.) PT with INR Urgent (13:23 04/08/2017 EKoroleva P.A.-C) (Ack 13:24 PWeiler ER Tech1) (14:32 PWeiler ER Tech1) PTT Urgent (13:23 04/08/2017 EKoroleva P.A.-C) (Ack 13:24 PWeiler ER Tech1) (14:32 PWeiler ER Tech1) Lipase Urgent (13:23 04/08/2017 EKoroleva P.A.-C) (Ack 13:24 PWeiler ER Tech1) (14:32 PWeiler ER Tech1) Chest 2V Urgent (13:28 04/08/2017 EKoroleva P.A.-C) (Cancelled: Other13:29 EKoroleva P.A.-C) Abd Series 2V Abd/1V Chest Urgent (13:28 04/08/2017 EKoroleva P.A.-C) (Ack 13:31 PWeiler ER Tech1) (14:44 PWeiler ER Tech1) Ethyl Alcohol Urgent (13:50 04/08/2017 EKoroleva P.A.-C) (Ack 13:54 PWeiler ER Tech1) (14:33 PWeiler ER Tech1) US Venous Bilat Urgent (14:42 04/08/2017 EKoroleva P.A.-C) (Ack 14:44 PWeiler ER Tech1) (Cancelled: Other16:43 EKoroleva P.A.-C) US Abdomen Limited (No) Urgent (15:00 04/08/2017 EKoroleva P.A.-C) (Ack 15:05 IJurca R.N.) (Ack 15:05 PWeiler ER Tech1) (17:18 PWeiler ER Tech1) PCT (Procalcitonin) Urgent (15:01 04/08/2017 EKoroleva P.A.-C) (Ack 15:05 IJurca R.N.) (Ack 15:05 PWeiler ER Tech1) (17:19 PWeiler ER Tech1) Vitals (15:36 04/08/2017 EKoroleva P.A.-C) (15:51 LWhalen R.N.) US Venous Right Urgent (16:43 04/08/2017 EKoroleva P.A.-C) (Ack 16:45 PWeiler ER Tech1) (17:18 PWeiler ER Tech1) MEDICATION ORDERS: Bactrim DS PO (Tablet 800-160 mg) 1 tab (NOW) (17:07 04/08/2017 EKoroleva P.A.-C) (17:25 LWhalen R.N.) IV FLUIDS: IV Saline Lock (13:23 04/08/2017 EKoroleva P.A.-C) (13:57 Reggie R.N.) ORDER SHEET NOTES: [Electronically signed by Clif Bryant R.N. (19:01 04/08/2017)] [Electronically signed by Cesia Rodriguez PKristieAKristie-C (20:19 04/08/2017)] [Electronically locked/signed by Clif Bryant R.N. (19:01 04/08/2017)]
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
--- NOTE | 2017-04-08 17:42 | ED ORDER SUMMARY ---
..... Patient: HENRIK WINSTON OrderSheet [facility] VisitID: [id number] [place] [address] 37y, M Registration Date/Time: 04/08/2017 ORDER SHEET Weight: 113.3 kg (stated) Allergies: None GENERAL ORDERS: CBC w Diff Urgent (13:23 04/08/2017 EKoroleva P.A.-C) (Ack 13:24 PWeiler ER Tech1) (14:32 PWeiler ER Tech1) CMP Urgent (13:23 04/08/2017 EKoroleva P.A.-C) (Ack 13:24 PWeiler ER Tech1) (14:32 PWeiler ER Tech1) UA-Culture if indicated Urgent (13:23 04/08/2017 EKoroleva P.A.-C) (Ack 13:24 PWeiler ER Tech1) (19:00 LWhalen R.N.) PT with INR Urgent (13:23 04/08/2017 EKoroleva P.A.-C) (Ack 13:24 PWeiler ER Tech1) (14:32 PWeiler ER Tech1) PTT Urgent (13:23 04/08/2017 EKoroleva P.A.-C) (Ack 13:24 PWeiler ER Tech1) (14:32 PWeiler ER Tech1) Lipase Urgent (13:23 04/08/2017 EKoroleva P.A.-C) (Ack 13:24 PWeiler ER Tech1) (14:32 PWeiler ER Tech1) Chest 2V Urgent (13:28 04/08/2017 EKoroleva P.A.-C) (Cancelled: Other13:29 EKoroleva P.A.-C) Abd Series 2V Abd/1V Chest Urgent (13:28 04/08/2017 EKoroleva P.A.-C) (Ack 13:31 PWeiler ER Tech1) (14:44 PWeiler ER Tech1) Ethyl Alcohol Urgent (13:50 04/08/2017 EKoroleva P.A.-C) (Ack 13:54 PWeiler ER Tech1) (14:33 PWeiler ER Tech1) US Venous Bilat Urgent (14:42 04/08/2017 EKoroleva P.A.-C) (Ack 14:44 PWeiler ER Tech1) (Cancelled: Other16:43 EKoroleva P.A.-C) US Abdomen Limited (No) Urgent (15:00 04/08/2017 EKoroleva P.A.-C) (Ack 15:05 IJurca R.N.) (Ack 15:05 PWeiler ER Tech1) (17:18 PWeiler ER Tech1) PCT (Procalcitonin) Urgent (15:01 04/08/2017 EKoroleva P.A.-C) (Ack 15:05 IJurca R.N.) (Ack 15:05 PWeiler ER Tech1) (17:19 PWeiler ER Tech1) Vitals (15:36 04/08/2017 EKoroleva P.A.-C) (15:51 LWhalen R.N.) US Venous Right Urgent (16:43 04/08/2017 EKoroleva P.A.-C) (Ack 16:45 PWeiler ER Tech1) (17:18 PWeiler ER Tech1) MEDICATION ORDERS: Bactrim DS PO (Tablet 800-160 mg) 1 tab (NOW) (17:07 04/08/2017 EKoroleva P.A.-C) (17:25 LWhalen R.N.) IV FLUIDS: IV Saline Lock (13:23 04/08/2017 EKoroleva P.A.-C) (13:57 Reggie R.N.) ORDER SHEET NOTES: [Electronically signed by Clif Bryant R.N. (19:01 04/08/2017)] [Electronically signed by Cesia Rodriguez PKristieAKristie-C (20:19 04/08/2017)] [Electronically locked/signed by Clif Bryant R.N. (19:01 04/08/2017)]
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
--- NOTE | 2017-04-08 20:19 | ED MAR SUMMARY ---
..... Medication Administration Record [facility] [address] [place] [address] Patient: HENRIK WINSTON Visit ID: [id number] 37y, M Weight: 113.3 kg Height/Length: 69 in BMI: 36.9 ALLERGIES: None Given 17:25 04/08/2017 Clif Bryant R.N. Medication Administered: BACTRIM DS [PO] (SULFAMETHOXAZOLE-TMP DS), Dose: 1 tab Tablets PO. Medication Ordered: Bactrim DS PO (Tablet 800-160 mg) 1 tab (NOW).
--- NOTE | 2017-04-08 20:19 | ED MED RECONCILIATION SUMMARY ---
Patient: HENRIK WINSTON Medication Reconciliation Report [facility] VisitID: [id number] [place] [address] 37y, M Registration Date/Time: 04/08/2017 Weight: 113.3 kg Height/Length: 69 in. BMI: 36.9 ALLERGIES: None The patient's Home Medications are listed below: THE FOLLOWING MEDICATIONS NEED TO BE RECONCILED: Metoprolol Tartrate Oral 25 mg, daily Percocet Oral The source(s) of the original Home Medication information: Not obtained. The following Medications were given to the patient in the Emergency Department: Bactrim DS [PO] PO 1 tab, administered: 04/08/2017 5:25:00 PM The following Medications were prescribed to the patient: Bactrim DS 800 mg / 160 mg: Take 1 tablet orally every 12 hours for 7 days. Dispense fourteen (14). No refills. Substitution is permissible. -- Cesia Rodriguez, PKristieADanishaC
--- NOTE | 2017-04-08 20:19 | ED DISCHARGE INSTRUCTIONS ---
Patient: HENRIK WINSTON General Instructions [facility] VisitID: [id number] [place] [address] 37y, M Registration Date/Time: 04/08/2017 Cirrhosis of the liver Cellulitis of the right lower leg. B/L LE lymphadema Morbid OBesity. INSTRUCTIONS Avoid. (as mentioned you do have liver disease with cirrhosis, you do have start of fluid buildup in her abdomen and will likely need a paracentesis, or fluid is removed from her abdomen over the next few weeks, please follow up and make arrangements of such with your primary care physician. U have signs of early infection of the right lower leg, with an ulcer that seems to be chronic to you, and is improving. Ultrasound did not show any signs of any blood clots in her right lower extremity. RESTRICT salt intake). Warnings: Further evaluation is necessary. Prescription Medications: Bactrim DS 800 mg / 160 mg: Take 1 tablet orally every 12 hours for 7 days. Dispense fourteen (14). No refills. Substitution is permissible. Follow-up: Follow up with your doctor in two days. ADDITIONAL INFORMATION Cellulitis You have an infection of the skin known as cellulitis. This usually starts with a scrape, cut, insect bite, blister or other opening in the skin which becomes infected. This is a serious condition. It must be watched closely to be sure the infection is not spreading. With antibiotic treatment, the size of the red area will gradually shrink in size until the skin returns to normal. This will take 7-10 days. The red area should never increase in size once the antibiotic medicine has been started. Occasionally, an infection will be resistant to one antibiotic and another one will have to be used. Home Care: 1) Limit the use of the affected part, since excess movement can cause the infection to spread. 2) If the infection is on your leg, walk as little as possible during the first few days of the treatment. Keep your leg elevated while sitting. This will reduce swelling. 3) Take all of the antibiotic medicine exactly as directed until it is gone. Be careful not to miss any doses, especially during the first seven days. Follow Up with your doctor or this facility as directed. Check the infected area daily for the warning signs listed below. Get Prompt Medical Attention if any of the following occur: -- Spreading area of redness -- Increasing swelling or pain -- Appearance of pus or drainage -- Fever over 100.4 F (38.0 C) oral, or over 101.4 F (38.6 C) rectal, after two days on antibiotics Cirrhosis Of The Liver The liver is located on the right side of your abdomen, just below the rib cage. The liver performs many essential functions including: Filters toxins from the blood Makes bile to aid digestion and absorption of vitamins from the GI tract Makes clotting factors that stop bleeding if you injure yourself Viral infections and toxins can cause permanent injury to the liver, called CIRRHOSIS. The most common cause of cirrhosis in the [place] is Hepatitis C and alcohol abuse. Other causes include Hepatitis B, medication side effects and others. The scarring that results from cirrhosis interferes with normal liver function and can cause many complications, including: Leakage of fluid from the blood vessels. This can cause pooling of fluid in the abdomen (ascites) or in the legs (edema). Inability of blood to form clots normally. This can lead to excess bleeding. Bleeding from blood vessels in the esophagus. This causes vomiting of blood or blood in the stool. Build-up of bile in the blood which causes a yellow color of the eyes and skin (jaundice). Build-up of toxins in the body which affect the brain and cause confusion. Treatment is aimed at taking care of the symptoms and preventing further liver damage. If your liver damage is from alcohol, quitting will slow the progress of the disease and may prevent further complications. If cirrhosis progresses and becomes life-threatening, liver transplant may be considered. If your liver damage is from Hepatitis B or C, treatments may be given to fight the virus. Home Care: Avoid medicines that can worsen liver damage such as acetaminophen (Tylenol). Your doctor will explain if any of the medicines you now take need to be changed. Talk to you doctor before taking mineral and vitamin supplements. Vitamin A, iron and copper can worsen liver damage. Severely limit alcohol use, or stop altogether. If you are alcoholic, seek professional help. Consider joining Alcoholics Anonymous for ongoing support. If you use IV drugs, you are at risk of Hepatitis B and C. Seek help to stop. The viruses that cause this kind of hepatitis are passed by blood or sexual contact with an infected person. It may even be possible to pass Hepatitis C by sharing straws to snort cocaine. Never share needles or other equipment. Follow Up with your doctor or as advised by our staff. Learn more about your disease and the availability of support groups for others with the same condition. Contact one of the following for more information: [employer] www.liverfoundation.org 121-374-1018 [employer] www.hepfi.org Get Prompt Medical Attention if any of the following occur: Rapid weight gain with increased size of your abdomen or leg swelling Increasing jaundice (yellow color of skin or eyes) Excess bleeding from cuts or injuries Ascites Ascites is a collection of fluid in the abdominal cavity. The fluid leaks from the blood vessels that go to the intestines and liver. The most common cause for ascites is cirrhosis (scarring) of the liver. This is most often caused by alcoholism but other conditions such as chronic hepatitis (type B or C) can also cause this. Conditions not related to the liver can cause ascites such as congestive heart failure, kidney failure, pancreatitis, and cancer involving the abdominal organs. As the amount of fluid increases, it causes abdominal swelling and discomfort. There may also be loss of appetite and shortness of breath. In severe cases, the feet, ankles and legs also swell. Initial treatment is to restrict your salt intake and use medicines that promote urination (diuretics, also called water pills). In severe cases the fluid may need to be drained from the abdomen with a needle (called symptoms can be better controlled with medicines. If your liver damage is from alcohol, quitting will slow the progress of the disease and may prevent further complications. If your liver damage is from Hepatitis B or C, treatments may be given to fight the virus. If cirrhosis progresses and becomes life-threatening, a liver transplant may be considered. Home Care: If liver disease is the cause of your ascites, avoid medicines that can worsen liver damage such as acetaminophen (Tylenol). Your doctor will explain if any of the medicines you now take need to be changed. Talk to your doctor before taking mineral and vitamin supplements. Vitamin A, iron and copper can worsen liver damage. Stop all alcohol use. If you are alcoholic, seek professional help. Consider joining Alcoholics Anonymous for ongoing support. If you use IV drugs, seek help to stop. The viruses that cause this kind of hepatitis are passed by blood or sexual contact with an infected person. Never share needles or other equipment. Follow Up with your doctor or as advised by our staff. Learn more about your disease and the availability of support groups for others with the same condition. [employer] [phone] www.liverfoundation.org [employer]. 359.230.4662 www.hepfi.org Alcoholics Anonymous offers support through a self-help fellowship. There are no dues or fees. See the Yellow Pages and call for time and place of meetings. www.aa.org [employer] offers support to families of alcohol users. 842.643.7185 www.al-anon.org [employer] [place] [employer] D[employer] 160-070-7355 www.ncadd.org Get Prompt Medical Attention if any of the following occur: Sudden weight gain with increased size of your abdomen or leg swelling Increasing jaundice (yellow color of skin or eyes) Excess bleeding from cuts or injuries Blood in your vomit or stool (black or red color) Difficulty breathing Increasing abdominal pain Fever of 100.4F (38C) or higher, or as directed by your healthcare provider Low-Salt Diet (2 Grams/Day) This diet eliminates foods that are high in salt and restricts the amount of salt that you cook with. It is most often used for patients with high blood pressure, edema (fluid retention), kidney, liver, and heart disease. Table salt contains the mineral sodium. The body needs sodium to work normally. But too much sodium can make your health problems worse. Your healthcare provider is recommending a low-salt (also called low-sodium) diet for you. Your total daily allowance of salt (sodium) is 2 grams. This equals 2,000 milligrams (mg). It is less than 1 teaspoon of table salt. This means you can have only about 700 mg of sodium at each meal. When you cook, limit the salt you use. And if you can avoid using salt, even better. Do not add salt at the table. So, throw away the saltshaker! When shopping, read the package labels. Salt is often called sodium on the label. Choose foods that are Salt-Free, Low Salt, or Very Low Salt. Note that foods with Reduced Salt may notlower your salt intake enough. Beverages OK: Tea, coffee, carbonated beverages, juices AVOID: Flavored international coffees, electrolyte replacement drinks, sports beverages Bread & Cereals OK: All regular bread, rolls, cereals, cakes; low-salt crackers, matzoh crackers AVOID: Salted crackers, pretzels, popcorn; guyanese toast, pancakes, muffins Fruits & Desserts OK: Ice cream, frozen yogurt, juice bars, gelatin (Jell-O), cookies and pies, sugar, honey, jelly, hard candy AVOID: Most pies, cakes and cookies prepared or processed with salt, instant pudding Meats OK: All fresh meat, fish, poultry, low-salt tuna AVOID: Smoked, pickled, brine-cured, or salted meats or fish. Thisincludes nayak, chipped beef, corned beef, hot dogs, luncheon meats, ham, kosher meats, salt pork, sausage, canned tuna, salted codfish, smokedsalmon, yanez, sardines, or anchovies. Dairy OK: Milk, chocolate milk, hot chocolate mix; eggs, Low Salt cheeses, yogurt, egg substitute AVOID: Processed cheese, cheese spreads, Roquefort, Camembert, and cottage cheese, buttermilk, instant breakfast drink Beans, Potatoes & Pasta OK: Dry beans, split peas, lentils, potatoes, rice, macaroni, noodles, spaghetti without added salt AVOID: Potato chips, tortilla chips, and similar products Soups OK: Low-salt soups and broths made with allowed foods AVOID: Bouillon cubes, soups with smoked or salted meats, regular soup and broth Vegetables OK: Most are okay; low-salt tomato and vegetable juices AVOID: Sauerkraut and other brine-soaked vegetables, pickles and other pickled vegetables, tomato juice, olives Seasoning & Spices OK: Most seasonings are okay. Good substitutes for salt include: fresh herb blends, Tabasco, lemon, garlic, house, vinegar, dry mustard, parsley, cilantro, horseradish, tomato paste, regular margarine, mayonnaise, butter, cream cheese, vegetable oil, cream, low-salt salad dressing and gravy AVOID: Regular ketchup, relishes, pickles, soy sauce, teriyaki sauce, Worcestershire sauce, BBQ sauce, tartar sauce, meat tenderizer, chili sauce, regular gravy, regular salad dressing You have been given the following additional information: Cellulitis Cirrhosis Ascites Diet, Low Salt (2Gm) (Electronically signed by Cesia Rodriguez P.A.-C 04/08/2017 20:19)
--- NOTE | 2017-04-08 20:19 | ED MAR SUMMARY ---
..... Medication Administration Record [facility] [address] [place] [address] Patient: HENRIK WINSTON Visit ID: [id number] 37y, M Weight: 113.3 kg Height/Length: 69 in BMI: 36.9 ALLERGIES: None Given 17:25 04/08/2017 Clif Bryant R.N. Medication Administered: BACTRIM DS [PO] (SULFAMETHOXAZOLE-TMP DS), Dose: 1 tab Tablets PO. Medication Ordered: Bactrim DS PO (Tablet 800-160 mg) 1 tab (NOW).
--- NOTE | 2017-04-08 20:19 | ED MED RECONCILIATION SUMMARY ---
Patient: HENRIK WINSTON Medication Reconciliation Report [facility] VisitID: [id number] [place] [address] 37y, M Registration Date/Time: 04/08/2017 Weight: 113.3 kg Height/Length: 69 in. BMI: 36.9 ALLERGIES: None The patient's Home Medications are listed below: THE FOLLOWING MEDICATIONS NEED TO BE RECONCILED: Metoprolol Tartrate Oral 25 mg, daily Percocet Oral The source(s) of the original Home Medication information: Not obtained. The following Medications were given to the patient in the Emergency Department: Bactrim DS [PO] PO 1 tab, administered: 04/08/2017 5:25:00 PM The following Medications were prescribed to the patient: Bactrim DS 800 mg / 160 mg: Take 1 tablet orally every 12 hours for 7 days. Dispense fourteen (14). No refills. Substitution is permissible. -- Cesia Rodriguez, PKristieADanishaC
== END 2017-04-08 18:58 | disposition home or self-care (01) ==
LOC: ED SRH 12:41
DX: K74.60 Unspecified cirrhosis of liver (principal); L03.115 Cellulitis of right lower limb; E66.01 Morbid (severe) obesity due to excess calories; I89.0 Lymphedema, not elsewhere classified; F17.210 Nicotine dependence, cigarettes, uncomplicated; F12.10 Cannabis abuse, uncomplicated